=== PATIENT | male | born 1980 | race Caucasian/White ===

== ENCOUNTER 2017-11-01 13:26 | Emergency (ER) | payer OTHER ==
[~2017-11-01] VITALS: Ht 180.3 cm; Wt 102.6 kg
[~2017-11-01 13:26] MED LIST: CITA10TA8 PO; CLIN300C10 PO; LISI-461 PO
[2017-11-01 13:29] VITALS: TEMP 36.7; Ht 180.3 cm; Wt 102.6 kg
[2017-11-01] MEDS ORDERED: SODIUM CHLORIDE 0.9% 1000ML 1,000 ML IV STA (15:56)
[2017-11-01 16:21] LABS: BASO % 0.5 %; BASO ABS # 0.04 K/uL (0-0.2); EOS % 1.5 %; EOS ABS # 0.11 K/uL (0-0.5); HEMOGLOBIN 15.5 g/dL (14.0-18.0); IG# 0.01 K/uL (0.00-0.02); LYMPH % 37.8 %; LYMPH ABS # 2.83 K/uL (1.2-3.4); MEAN CELL VOLUME 93.4 fL (80-100); MEAN CORPUSCULAR HEMOGLOBIN 32.9 pg (25-34); MEAN CORPUSCULAR HGB CONC 35.2 g/dl (32-36); MEAN PLATELET VOLUME 9.5 fL (7.4-10.4); MONO % 7.2 %; MONO ABS # 0.54 K/uL (0.11-0.59); NEUT % 52.9 %; NEUT ABS # 3.96 K/uL (1.4-6.5); PLATELET COUNT 306 K/uL (130-400); RED CELL DISTRIBUTION WIDTH CV 12.5 % (11.5-14.5); RED CELL DISTRIBUTION WIDTH SD 42.4 fL (36.4-46.3); WHITE BLOOD COUNT 7.49 K/uL (4.8-10.8)
--- NOTE | 2017-11-01 16:33 | DIAGNOSTIC IMAGING REPORT ---
CHEST ONE VIEW PORTABLE HISTORY: 37 years-old Male sob acute shortness of breath with weakness COMPARISON: None available TECHNIQUE: Portable AP view of the chest FINDINGS: Cardiomediastinal and hilar silhouettes are within normal limits. There is no pneumothorax, pleural effusion, focal airspace consolidation or overt pulmonary edema. The bones of the chest appear grossly intact. IMPRESSION: No acute process. The above report was generated using voice recognition software. It may contain grammatical, syntax or spelling errors. Electronically signed by: Silviano Livingston M.D. 11/01/2017 4:31 PM Dictated Date/Time: 11/01/2017 4:31 PM
[2017-11-01 16:39] LABS: ALBUMIN 3.9 gm/dl (3.4-5.0); ALT/SGPT 29 U/L (12-78); AST/SGOT 11 U/L (15-37); BLOOD UREA NITROGEN 12 mg/dl (7-18); CALCIUM 8.7 mg/dl (8.5-10.1); CARBON DIOXIDE 29 mmol/L (21-32); CREATININE 1.09 mg/dl (0.60-1.40); GLUCOSE 65 mg/dl (70-99); LIPASE 115 U/L (73-393); POTASSIUM 3.7 mmol/L (3.5-5.1); SODIUM 142 mmol/L (136-145)
[2017-11-01 16:44] LABS: ALKALINE PHOSPHATASE 82 U/L (45-117); TOTAL PROTEIN 7.1 gm/dl (6.4-8.2)
--- NOTE | 2017-11-01 17:12 | DIAGNOSTIC IMAGING REPORT ---
(RENAL)RETROPERITON COMP CLINICAL HISTORY: 37 years-old Male presenting with hematuria . TECHNIQUE: Real-time grayscale and limited color Doppler ultrasound imaging of the kidneys and bladder was performed. COMPARISON: None. FINDINGS: Right kidney: Normal echogenicity of renal parenchyma. Right kidney measures 12.7 cm. Pelviectasis. No convincing evidence of calculus or mass. Left kidney: Normal echogenicity of renal parenchyma. Left kidney measures 12.2 cm. Pelviectasis. 7 mm hyperechogenic shadowing focus with twinkling artifact at the lower pole suggesting renal calculus. Bladder: Normal. Bilateral ureteral jets present. Other: None. IMPRESSION: 1. Left renal calculus suspected. 2. No convincing evidence of hydronephrosis. Suspected bilateral extrarenal pelvises. Electronically signed by: Miguel Angel Ndiaye M.D. 11/01/2017 5:10 PM Dictated Date/Time: 11/01/2017 5:09 PM
[2017-11-01 17:14] VITALS: BP 137/90; PULSE 78; O2SAT 98
[2017-11-01] MEDS ORDERED: DEXM1CAP PO (17:19)
[2017-11-01] MEDS ORDERED: DEXM10TA2 PO (17:19)
--- NOTE | 2017-11-01 18:24 | EMERGENCY ROOM VISIT NOTE ---
History Report prepared by Rekha: Ag Chacon Under the Supervision of: Dr. Alexander Hylton D.O. First contact with patient: 15:47 Chief Complaint: HEMATURIA Stated Complaint: BLOOD IN URINE,WEAKNESS,FATIGUE,JOINT PAIN Nursing Triage Summary: Seen at [facility] last week for hematuria, urine sample done and was called and told to f/u with urology because there was no infection. "Several months ago slipped on ice and landed on back, had hematuria for a couple days. Today I woke up and my legs looked like tree trunks, they look normal now but they feel heavy and weird. I have achiness all over. Denies tick bite. History of Present Illness The patient is a 37 year old male who presents to the Emergency Room with complaints of hematuria/dark black urine that he first observed 3 weeks ago. The patient states that his urine looked like "motor oil" and he could feel himself getting "lightheaded" when he would urinate. This started 3 weeks ago, but he notes that 2 months prior to that he slipped and feel on his porch steps and hit his lower back. After this episode he started to notice bright red blood in his urine. This bright red blood in his urine resolved, and the dark black urine started a couple of weeks later. Over the past two days the color of his urine has seemed to improve, and was a normal color today. The patient also notes that when he woke up this morning at, 0700, he felt a "heaviness" on his chest and he noticed that his calves were swollen which is been present since 7 AM. His legs felt like they had "sandbags" strapped to his feet. He continued to complain that he felt very tired today as well. The patient took himself to [facility] last week and his urinalysis showed large amounts of "blood and proteins." The patient denies change in vision, fevers, shortness of breath, nausea, vomiting, diarrhea, and melena. Source of History: patient Onset: 3 weeks ago Position: other (Genitourinary) Quality: other (hematuria/black urine) Timing: resolved (improving) Associated Symptoms: + headache (lightheadedness with urination), + chest pain ("heaviness"), + fatigue, + weakness, No SOB Review of Systems See HPI for pertinent positives & negatives. A total of 10 systems reviewed and were otherwise negative. Past Medical & Surgical Medical Problems: (1) Hypertension Family History Patient reports no known family medical history. Social History Smoking Status: Current Every Day Smoker Alcohol Use: occasionally Marital Status: Housing Status: lives with family Current/Historical Medications Scheduled Dexmethylphenidate HCl (Dexmethylphenidate HCl ER), 30 MG PO QAM Dexmethylphenidate Hcl (Dexmethylphenidate Hcl), 10 MG PO BID Allergies Coded Allergies: BEE STING (Unverified Allergy, Mild, 11/01/17) Uncoded Allergies: N (Allergy, Unknown, 08/28/02) NKA (Allergy, Unknown, 08/28/02) Physical Exam Vital Signs Date Time Temp Pulse Resp B/P (MAP) Pulse Ox O2 Delivery O2 Flow Rate FiO2 11/01/17 17:14 78 16 137/90 98 Room Air 11/01/17 15:47 84 18 140/90 97 Room Air 11/01/17 13:29 36.7 95 20 153/103 100 Room Air Physical Exam GENERAL: Sitting up in bed, alert, well appearing, well nourished, no distress, non-toxic EYE EXAM: normal conjunctiva. OROPHARYNX: no exudate, no erythema, lips, buccal mucosa, and tongue normal and mucous membranes are moist NECK: supple, no nuchal rigidity, no adenopathy, non-tender LUNGS: Clear to auscultation. Normal chest wall mechanics HEART: no murmurs, S1 normal and S2 normal ABDOMEN: abdomen soft, non-tender, normo-active bowel sounds, no masses, no rebound or guarding. BACK: Back is symmetrical on inspection and there is no deformity, no midline tenderness, no CVA tenderness. SKIN: no rashes and no bruising UPPER EXTREMITIES: upper extremities are grossly normal. LOWER EXTREMITIES: No pitting edema. Calves are equal bilaterally. NEURO EXAM: Normal sensorium, cranial nerves II-XII grossly intact, normal speech, no gross weakness of arms, no gross weakness of legs. Medical Decision & Procedures ER Provider Diagnostic Interpretation: Radiology results as stated below per my review and the radiologist's interpretation: CHEST ONE VIEW PORTABLE HISTORY: 37 years-old Male sob acute shortness of breath with weakness COMPARISON: None available TECHNIQUE: Portable AP view of the chest FINDINGS: Cardiomediastinal and hilar silhouettes are within normal limits. There is no pneumothorax, pleural effusion, focal airspace consolidation or overt pulmonary edema. The bones of the chest appear grossly intact. IMPRESSION: No acute process. The above report was generated using voice recognition software. It may contain grammatical, syntax or spelling errors. Electronically signed by: Silviano Livingston M.D. 11/01/2017 4:31 PM Dictated Date/Time: 11/01/2017 4:31 PM Laboratory Results 11/01/17 16:05 Red Blood Count 4.71, Mean Corpuscular Volume 93.4, Mean Corpuscular Hemoglobin 32.9, Mean Corpuscular Hemoglobin Concent 35.2, Mean Platelet Volume 9.5, Neutrophils (%) (Auto) 52.9, Lymphocytes (%) (Auto) 37.8, Monocytes (%) (Auto) 7.2, Eosinophils (%) (Auto) 1.5, Basophils (%) (Auto) 0.5, Neutrophils # (Auto) 3.96, Lymphocytes # (Auto) 2.83, Monocytes # (Auto) 0.54, Eosinophils # (Auto) 0.11, Basophils # (Auto) 0.04 11/01/17 16:05 Test 11/01/17 16:05 11/01/17 16:23 White Blood Count 7.49 K/uL (4.8-10.8) Red Blood Count 4.71 M/uL (4.7-6.1) Hemoglobin 15.5 g/dL (14.0-18.0) Hematocrit 44.0 % (42-52) Mean Corpuscular Volume 93.4 fL (80-100) Mean Corpuscular Hemoglobin 32.9 pg (25-34) Mean Corpuscular Hemoglobin Concent 35.2 g/dl (32-36) Platelet Count 306 K/uL (130-400) Mean Platelet Volume 9.5 fL (7.4-10.4) Neutrophils (%) (Auto) 52.9 % Lymphocytes (%) (Auto) 37.8 % Monocytes (%) (Auto) 7.2 % Eosinophils (%) (Auto) 1.5 % Basophils (%) (Auto) 0.5 % Neutrophils # (Auto) 3.96 K/uL (1.4-6.5) Lymphocytes # (Auto) 2.83 K/uL (1.2-3.4) Monocytes # (Auto) 0.54 K/uL (0.11-0.59) Eosinophils # (Auto) 0.11 K/uL (0-0.5) Basophils # (Auto) 0.04 K/uL (0-0.2) RDW Standard Deviation 42.4 fL (36.4-46.3) RDW Coefficient of Variation 12.5 % (11.5-14.5) Immature Granulocyte % (Auto) 0.1 % Immature Granulocyte # (Auto) 0.01 K/uL (0.00-0.02) Anion Gap 5.0 mmol/L (3-11) Est Creatinine Clear Calc Drug Dose 114.2 ml/min Estimated GFR () 100.7 Estimated GFR (Non- 86.9 BUN/Creatinine Ratio 10.6 (10-20) Calcium Level 8.7 mg/dl (8.5-10.1) Total Bilirubin 0.9 mg/dl (0.2-1) Direct Bilirubin 0.2 mg/dl (0-0.2) Aspartate Amino Transf (AST/SGOT) 11 U/L (15-37) Alanine Aminotransferase (ALT/SGPT) 29 U/L (12-78) Alkaline Phosphatase 82 U/L (45-117) Troponin I < 0.015 ng/ml (0-0.045) Total Protein 7.1 gm/dl (6.4-8.2) Albumin 3.9 gm/dl (3.4-5.0) Lipase 115 U/L (73-393) Urine Color YELLOW Urine Appearance CLEAR (CLEAR) Urine pH 7.0 (4.5-7.5) Urine Specific [place] 1.019 (1.000-1.030) Urine Protein NEG (NEG) Urine Glucose (UA) NEG (NEG) Urine Ketones NEG (NEG) Urine Occult Blood 2+ (NEG) Urine Nitrite NEG (NEG) Urine Bilirubin NEG (NEG) Urine Urobilinogen NEG (NEG) Urine Leukocyte Esterase NEG (NEG) Urine WBC (Auto) 1-5 /hpf (0-5) Urine RBC (Auto) 5-10 /hpf (0-4) Urine Hyaline Casts (Auto) 0 /lpf (0-5) Urine Epithelial Cells (Auto) 0-5 /lpf (0-5) Urine Bacteria (Auto) NEG (NEG) Laboratory results per my review. Medications Administered Medications (Trade) Dose Ordered Sig/Marilee Route Start Time Stop Time Status Last Admin Dose Admin Sodium Chloride 1,000 ml @ 999 mls/hr Q1H1M STAT IV 11/01/17 15:56 11/01/17 16:56 DC 11/01/17 16:06 999 MLS/HR ECG Per My Interpretation Indication: chest pain (heaviness) Rate (beats per minute): 79 Rhythm: normal sinus Findings: other (Normal [place], No PVCs) ED Course ED COURSE: Vital signs were reviewed and showed hypertensive situationally. The patients medical record was reviewed The above diagnostic studies were performed and reviewed. ED treatments and interventions as stated above. 1551: The patient was evaluated in room A4B. A complete history and physical examination was performed. 1556: Ordered Sodium Chloride 1000 mL @ 999 mL/hr IV. 1726: Upon reevaluation, the patient is resting comfortably.I discussed my findings with the patient and he understands and agrees with the treatment plan. Based on the patients age, coexisting illnesses, exam and lab findings the decision to treat as an outpatient was made. The patient remained stable while under my care. The patient appeared well at the time of discharge. Medical Decision Differential Diagnosis includes but is not limited to dehydration, stroke, anemia, hypoglycemia, hyponatremia, hypernatremia, urinary tract infection, pneumonia, bronchitis, sepsis, gastroenteritis, additional abdominal pathology, metabolic abnormalities and infections. Patient is a 37-year-old male who presents the ER for 3 weeks of intermittent dark urine. He also notes some questionable hematuria. He was recently treated for UTI but was called with a negative culture. He has not followed up with urology yet. He did have some mild chest heaviness which started this morning at 7 AM. Troponin was negative and EKG was unremarkable. CBC along with BMP, LFTs, bilirubin and troponin and lipase is negative. UA without proteinuria or infection. Did have +2 blood. Chest x-ray and ultrasound of the kidneys was unremarkable. Patient was updated at bedside. I did stress the importance of following up with urology within the next week. He was given info for Dr. Leal. Discussed with Pt concerning signs and symptoms to watch out for. Pt was instructed to follow up with their PCP and discussed with the patient their option to return to the ED at anytime for persistent or worsening symptoms. The appropriate anticipatory guidance and out-patient management, including indications for return to the emergency department, were explained at length to the patient and understood. Medication Reconcilliation Current Medication List: was personally reviewed by me Blood Pressure Screening Patient's blood pressure: Elevated blood pressure Blood pressure disposition: Elevated BP felt to be situational Impression Primary Impression: Hematuria Scribe Attestation The scribe's documentation has been prepared under my direction and personally reviewed by me in its entirety. I confirm that the note above accurately reflects all work, treatment, procedures, and medical decision making performed by me. Departure Information Dispostion Home / Self-Care Referrals Kateryna Irby M.D. (MEDICAL) (PCP) Forms HOME CARE DOCUMENTATION FORM, IMPORTANT VISIT INFORMATION, WORK / SCHOOL INSTRUCTIONS Patient Instructions My [facility] Additional Instructions Please follow up with your primary care doctor with in the next 24 hours. Any worsening of your symptoms, please return to the ED immediately. This includes any fevers greater than 100.4, worsening pain, chest pain, shortness breath, persistent nausea, vomiting, unable to eat or drink, or any other concerning signs or symptoms from your standpoint. Please follow-up with urology as listed below. Problem Qualifiers Primary Impression: Hematuria Hematuria type: unspecified type Qualified Codes: R31.9 - Hematuria, unspecified
== END 2017-11-01 17:39 | disposition home or self-care (01) ==
LOC: C.EDB 13:28 → C.EDA 17:39
DX: R31.9 Hematuria, unspecified (principal); R42 Dizziness and giddiness; R07.89 Other chest pain; R53.83 Other fatigue; R60.0 Localized edema; I10 Essential (primary) hypertension; F17.200 Nicotine dependence, unspecified, uncomplicated; Z79.899 Other long term (current) drug therapy; Z91.030 Bee allergy status

== ENCOUNTER → 2017-11-09 | Outpatient (CLI) | payer OTHER ==
[~2017-11-09] MED LIST changes: -CITA10TA8 PO; -CLIN300C10 PO; +DEXM10TA2 PO; +DEXM1CAP PO; -LISI-461 PO
== END | disposition home or self-care (01) ==
LOC: C.PATHSPEC 14:53
PROVIDERS: ATTEND Urology
DX: N20.0 Calculus of kidney (principal)

== ENCOUNTER 2018-07-09 18:55 | Inpatient (IN) ==
[2018-07-09] MEDS ORDERED: ONDANSETRON INJ 2 MG/ML 2 ML VIAL IV STA (19:31)
[2018-07-09] MEDS ORDERED: SODIUM CHLORIDE 0.9% 1000ML 1,000 ML IV SCH (19:45)
[2018-07-09 19:48] LABS: Basophils # (auto) 0.02 K/uL (0-0.2); Basophils % (auto) 0.2 %; Eosinophils # (auto) 0.13 K/uL (0-0.5); Eosinophils % (auto) 1.5 %; Hematocrit (blood only) 40.6 % (42-52); Hemoglobin 14.8 g/dL (14.0-18.0); Immature Granulocytes # (auto) 0.02 K/uL (0.00-0.02); Immature Granulocytes % (auto) 0.2 %; Lymphocytes # (auto) 2.37 K/uL (1.2-3.4); Lymphocytes % (auto) 27.8 %; Mean Corpuscular Hgb Conc 36.5 g/dL (32-36); Mean Corpuscular Volume 91.6 fL (80-100); Mean Platelet Volume 9.3 fL (7.4-10.4); Monocytes # (auto) 0.73 K/uL (0.11-0.59); Monocytes % (auto) 8.6 %; Neutrophils # (auto) 5.24 K/uL (1.4-6.5); Neutrophils % (auto) 61.7 %; Platelet Count 332 K/uL (130-400); RDW Standard Deviation 40.7 fL (36.4-46.3); Red Blood Count 4.43 M/uL (4.7-6.1); White Blood Count 8.51 K/uL (4.8-10.8)
[2018-07-09 20:00] LABS: Albumin Level 3.7 gm/dl (3.4-5.0); BUN Creatinine Ratio 12.2 (10-20); Calcium 9.4 mg/dl (8.5-10.1); Creatinine Clr Calc Pharmacy 80.5 ml/min; Est GFR (African American) 64.8; Est GFR (Non-African American) 55.9; Potassium 3.3 mmol/L (3.5-5.1)
[2018-07-09 20:03] LABS: Albumin Globulin Ratio 0.8 (0.9-2); Globulin 4.4 gm/dl (2.5-4.0); Total Protein 8.1 gm/dl (6.4-8.2)
--- NOTE | 2018-07-09 20:05 | XRay Report ---
KUB HISTORY: Acute right-sided flank paina right flank pain COMPARISON: KUB 07/04/2018 FINDINGS: The bowel gas pattern is non-obstructive. There is no organomegaly. Bilateral nephrolithia sis redemonstrated. The previously noted 7 mm calculus about the mid right ureter is not definitively seen on today's study. Pelvic basin calcifications suggest phleboliths. No pneumoperitoneum or pneum atosis. No fracture. IMPRESSION: Bilateral nephrolithiasis without ureteral calculi identified. The previously noted right ureteral ca lculus is not seen on today's study. Electronically signed by: Silviano Livingston M.D. 07/09/2018 8:04 PM
--- NOTE | 2018-07-09 20:07 | Emergency Department Note ---
Entered by Yecenia Hoff acting as a scribe for History of Present Illness General Chief complaint: Kidney Stone Stated complaint: KIDNEY STONES Source: patient Mode of arrival: ambulatory Limitations: no limitations History of Present Illness Provider complaint: kidney stone pain Onset (ago): day(s) 5 Location: abdomen Pain Consistency: + other (worsening) Maximum Pain Intensity: 10 Current Pain Intensity: 10 Quality: + other (kidney stones) Relieved By: not by medication Associated symptoms: + nausea/vomiting Treatments prior to arrival: other (Oxycodone) The patient is a 37 year old male who presents to the Emergency Room with complaints of a worsening kidney stone pain that began 5 days ago. The patient reports that he was evaluated at this hospital last Sunday for back pain and being unable to urinate. He states that he was diagnosed with kidney stones and advised to be hospitalized, but he insisted on being discharged home due to the upcoming holidays. He notes that he was discharged with zofran and oxycodone and instructed to return if the pain worsened. The patient reports that the medication did not alleviate his symptoms and notes that he last took some about 5-6 hours ago. He states that he has been nauseous, vomiting and experiencing cold sweats. He reports that he did pass stones yesterday but notes he has been unable to today. The patient states he has a history of wisdom teeth extraction and a tendon repair in his right arm. Home Medications Home Medications Medication Instructions Recorded Confirmed Type ondansetron 4 mg PO Q6H PRN #12 tab 07/04/18 07/09/18 Rx tamsulosin 0.4 mg PO HS 07/06/18 07/09/18 History acetaminophen [Mapap 650 mg PO Q4H PRN #30 tab 07/11/18 Rx (acetaminophen)] ciprofloxacin HCl 500 mg PO BID #6 tab 07/11/18 Rx docusate sodium 100 mg PO BID #20 cap 07/11/18 Rx nicotine [Nicoderm CQ] 21 mg TRANSDERMAL QAM #14 ea 07/11/18 Rx polyethylene glycol 3350 [Miralax] 17 g PO TID #10 ea 07/11/18 Rx Allergies Allergy/AdvReac Type Severity Reaction Status Date / Time bee venom protein (honey bee) Allergy Mild Unknown Unverified 07/05/18 12:06 No Known Drug Allergies Allergy Verified 07/05/18 12:35 shrimp AdvReac Severe Swelling Unverified 07/05/18 12:06 of Lip/Tongue/Throat Past Med/Surg History Medical History Ureterolithiasis Renal colic on right side Hematuria (Resolved) ADHD Kidney stone Surgical History S/P tendon repair Hx of wisdom tooth extraction Social History Current Living Situation: Family and Significant Other Other Information That Helps Us Care for You: No Feels Safe at Home: Yes Safety Concerns: Feels Safe At This Time Smoking Status: Current every day smoker Tobacco Type: cigarettes Do You Dip or Chew Tobacco: Yes Second Hand Exposure: No Tobacco Cessation Education Requested by Patient: No Hx Alcohol Use: No Hx Substance Use: Yes substance use type: marijuana Last Used Substance: Days ( ago) Last Used Substance Other:: 1 Beliefs That Will Affect Care: None Preferred Language: Stateless Review of Systems See HPI for pertinent positives & negatives. and A total of 10 systems reviewed and were otherwise negative Physical Exam Vital Signs Vital Signs - 24 hr 07/10/18 15:30 07/10/18 23:50 07/11/18 07:15 Temperature 36.3 C L 36.6 C 36.6 C Temperature Source Oral Oral Oral Pulse Rate [Right Finger] 74 70 73 Pulse Rhythm [Right Finger] Pulse Strength [Right Finger] Respiratory Rate 17 16 16 Respiratory Effort / Characteristics Respiratory Depth Respiratory Pattern Blood Pressure [Left Arm] 147/95 H 117/72 Blood Pressure [Right Arm] 142/91 H Blood Pressure Mean [Left Arm] 112 87 Blood Pressure Mean [Right Arm] 108 Blood Pressure Position [Left Arm] Lying Lying Blood Pressure Position [Right Arm] Lying Pulse Oximetry 94 96 96 Oxygen Delivery Method Room Air Room Air Room Air 07/11/18 09:58 07/11/18 13:37 Temperature 36.8 C 36.8 C Temperature Source Oral Pulse Rate [Right Finger] 76 76 Pulse Rhythm [Right Finger] Regular Pulse Strength [Right Finger] Normal Respiratory Rate 20 20 Respiratory Effort / Characteristics Non-Labored Spontaneous Normal for Patient Respiratory Depth Normal Respiratory Pattern Regular Blood Pressure [Left Arm] 117/72 Blood Pressure [Right Arm] 132/95 132/95 Blood Pressure Mean [Left Arm] Blood Pressure Mean [Right Arm] 107 Blood Pressure Position [Left Arm] Semi-fowlers Blood Pressure Position [Right Arm] Pulse Oximetry 98 98 Oxygen Delivery Method Room Air GENERAL: Patient is awake and alert. He is very anxious appearing and appears to be in significant pain. EYES: The conjunctivae are clear. The pupils are round and reactive. EARS, NOSE, MOUTH AND THROAT: The nose is without any evidence of any deformity. Mucous membranes are moist tongue is midline NECK: The neck is nontender and supple. RESPIRATORY: Normal respiratory effort is noted there is no evidence of wheezing rhonchi or rales CARDIOVASCULAR: Regular rate and rhythm noted there no murmurs rubs or gallops normal S1 normal S2 GASTROINTESTINAL: The abdomen is moderately distended and diffusely tender. There is right-sided tenderness to palpation but no guarding or rigidity. BACK: There is bilateral CVA tenderness to percussion right greater than left. No midline tenderness was noted. MUSCULOSKELETAL/EXTREMITIES: There is no evidence of gross deformity full range of motion is noted in the hips and shoulders SKIN: There is no obvious evidence of any rash. There are no petechiae, pallor or cyanosis noted. NEUROLOGIC: Patient is awake alert and oriented x3 strength is symmetric patellar reflexes are 2+ bilaterally Course 193: Past medical records reviewed. The patient was evaluated in room B2, and a complete history and physical examination were performed. 2306: I reviewed the patient's case with Dr. Jane - [facility] Hospitalist. He will evaluate the patient for further management. Administered Medications Discontinued Medications Docusate Sodium (Colace) 100 mg PO BID PARMINDER Stop: 08/09/18 08:59 Last Admin: 07/10/18 08:16 Dose: Not Given Hydromorphone HCl (Dilaudid) 1 mg IV Q15M PRN PRN Reason: Pain Stop: 07/23/18 22:04 Last Admin: 07/10/18 00:03 Dose: 1 mg Admin: 07/09/18 22:09 Dose: 1 mg Hydromorphone HCl (Dilaudid) 0.5 mg IV Q3H PRN PRN Reason: Pain Stop: 07/24/18 00:54 Last Admin: 07/10/18 01:44 Dose: 0.5 mg Hydromorphone HCl (Dilaudid) Confirm Administered Dose 0.5 mg .ROUTE .STK-MED ONE Stop: 07/10/18 01:06 Last Admin: 07/10/18 01:07 Dose: 0.5 mg Hydromorphone HCl (Dilaudid) 1 mg IV Q3H PRN PRN Reason: Pain Stop: 07/24/18 00:54 Last Admin: 07/10/18 10:20 Dose: 1 mg Admin: 07/10/18 05:54 Dose: 1 mg Hydromorphone HCl (Dilaudid) 1 mg IV NOW STA Stop: 07/10/18 02:42 Last Admin: 07/10/18 02:49 Dose: 1 mg Hydromorphone HCl (Dilaudid) 1 mg IV Q2H PRN PRN Reason: Pain Stop: 07/24/18 01:26 Last Admin: 07/10/18 21:34 Dose: 1 mg Admin: 07/10/18 12:18 Dose: 1 mg Sodium Chloride (Nss 1000ml) 1,000 mls @ 999 mls/hr IV .Q1H1M [facility] Stop: 07/09/18 20:45 Last Infusion: 07/09/18 21:29 Dose: 0 mls/hr Admin: 07/09/18 20:28 Dose: 999 mls/hr Lactated Ringer's (Lr) 1,000 mls @ 150 mls/hr IV .Q6H40M [facility] Stop: 08/09/18 00:54 Last Admin: 07/11/18 10:23 Dose: 150 mls/hr Admin: 07/11/18 09:49 Dose: Not Given Infusion: 07/11/18 09:48 Dose: 0 mls/hr Infusion: 07/11/18 06:47 Dose: 150 mls/hr Admin: 07/11/18 03:05 Dose: 150 mls/hr Infusion: 07/11/18 00:50 Dose: 150 mls/hr Admin: 07/10/18 18:09 Dose: 150 mls/hr Infusion: 07/10/18 17:58 Dose: 0 mls/hr Infusion: 07/10/18 15:24 Dose: 150 mls/hr Infusion: 07/10/18 12:30 Dose: 150 mls/hr Admin: 07/10/18 09:29 Dose: 140 mls/hr Infusion: 07/10/18 08:57 Dose: 140 mls/hr Infusion: 07/10/18 07:24 Dose: 140 mls/hr Admin: 07/10/18 01:48 Dose: 140 mls/hr Ciprofloxacin Lactate (Cipro / D5w) 200 mg in 100 mls @ 100 mls/hr IV Q12H [facility] Stop: 07/15/18 01:59 Last Infusion: 07/10/18 03:38 Dose: 0 mls/hr Admin: 07/10/18 02:18 Dose: 100 mls/hr Acetaminophen (Ofirmev) 1,000 mg in 100 mls @ 400 mls/hr IV Q8H [facility] Stop: 08/09/18 07:29 Last Infusion: 07/11/18 07:29 Dose: 0 mls/hr Admin: 07/11/18 07:09 Dose: 400 mls/hr Infusion: 07/10/18 22:54 Dose: 0 mls/hr Infusion: 07/10/18 22:40 Dose: 400 mls/hr Infusion: 07/10/18 22:35 Dose: 0 mls/hr Admin: 07/10/18 22:34 Dose: 400 mls/hr Infusion: 07/10/18 16:11 Dose: 0 mls/hr Admin: 07/10/18 15:25 Dose: 400 mls/hr Infusion: 07/10/18 08:14 Dose: 0 mls/hr Admin: 07/10/18 07:44 Dose: 400 mls/hr Ciprofloxacin (Cipro) 400 mg in 200 mls @ 100 mls/hr IV Q12H [facility] Stop: 07/20/18 19:59 Last Infusion: 07/11/18 11:54 Dose: 0 mls/hr Admin: 07/11/18 08:32 Dose: 100 mls/hr Infusion: 07/10/18 21:23 Dose: 0 mls/hr Admin: 07/10/18 19:08 Dose: 100 mls/hr Ciprofloxacin Lactate (Cipro / D5w) 200 mg in 100 mls @ 100 mls/hr IV 1115 ONE Stop: 07/10/18 12:14 Last Infusion: 07/10/18 12:22 Dose: 0 mls/hr Admin: 07/10/18 11:20 Dose: 100 mls/hr Influenza Virus Vaccine Quadrival (Flucelvax Quad Vaccine) 0.5 ml IM .ONCE ONE Stop: 07/10/18 08:01 Last Admin: 07/10/18 13:48 Dose: 0.5 ml Ketorolac Tromethamine (Toradol) 15 mg IV Q6H PRN PRN Reason: Pain Stop: 07/15/18 11:01 Last Admin: 07/10/18 14:51 Dose: 15 mg Lorazepam (Ativan) 0.5 mg PO Q8 PRN PRN Reason: Anxiety Stop: 08/09/18 10:40 Last Admin: 07/10/18 11:21 Dose: 0.5 mg Miscellaneous (Remove Nicoderm Patch) 1 ea N/A HS [facility]ER Stop: 08/09/18 20:59 Last Admin: 07/10/18 21:18 Dose: 1 ea Morphine Sulfate (Morphine Sulfate) 4 mg IV Q15M PRN PRN Reason: Pain Stop: 07/23/18 19:30 Last Admin: 07/09/18 20:57 Dose: 4 mg Admin: 07/09/18 20:29 Dose: 4 mg Nicotine (Nicoderm Cq) 21 mg TD QAM [facility] Stop: 08/09/18 01:29 Last Admin: 07/11/18 08:38 Dose: 21 mg Admin: 07/10/18 10:35 Dose: 21 mg Admin: 07/10/18 02:17 Dose: Not Given Ondansetron HCl (Zofran) 4 mg IV NOW STA Stop: 07/09/18 19:32 Last Admin: 07/09/18 20:29 Dose: 4 mg Ondansetron HCl (Zofran) 4 mg IV Q6H PRN PRN Reason: Nausea Stop: 08/09/18 00:54 Last Admin: 07/10/18 21:32 Dose: 4 mg Polyethylene Glycol (Miralax Powder Packet) 17 gm PO TID [facility]MINDER Stop: 08/09/18 10:59 Last Admin: 07/11/18 08:46 Dose: 17 gm Admin: 07/10/18 21:19 Dose: 17 gm Admin: 07/10/18 13:49 Dose: Not Given Admin: 07/10/18 12:19 Dose: 17 gm Potassium Chloride (Klor-Con M20) 40 meq PO NOW STA Stop: 07/10/18 00:56 Last Admin: 07/10/18 02:17 Dose: 40 meq Senna/Docusate Sodium (Senokot S) 1 tab PO BID PARMINDER Stop: 08/09/18 10:44 Last Admin: 07/11/18 08:46 Dose: 1 tab Admin: 07/10/18 21:17 Dose: 1 tab Admin: 07/10/18 12:18 Dose: 1 tab Tamsulosin HCl (Flomax) 0.4 mg PO HS PARMINDER Stop: 08/09/18 20:59 Last Admin: 07/10/18 21:17 Dose: 0.4 mg Tamsulosin HCl (Flomax) 0.4 mg PO NOW ONE Stop: 07/10/18 11:39 Last Admin: 07/10/18 12:19 Dose: 0.4 mg Medical Decision Making Differential Diagnosis Differential Diagnosis includes: shingles, pyelonephritis/UTI, renal colic, appendicitis, diverticulitis, mesenteric ischemia, torsion, kidney stones, aortic pathology, infections, inflammatory bowel disease, bowel obstruction, PUD , biliary pathology, as well as others were entertained. Medical Records Attestation: I reviewed the patient's medical records. Home Medications Current Medication List: was personally reviewed by me Laboratory Data Attestation: I reviewed the patient's lab results. Result diagrams: 07/10/18 06:01 07/11/18 06:12 Lab Results 07/09/18 07/09/18 07/09/18 Range/Units 19:15 19:15 21:00 WBC 8.51 (4.8-10.8) K/uL RBC 4.43 L (4.7-6.1) M/uL Hgb 14.8 (14.0-18.0) g/dL Hct 40.6 L (42-52) % MCV 91.6 (80-100) fL MCH 33.4 (25-34) pg MCHC 36.5 H (32-36) g/dL RDW Std Deviation 40.7 (36.4-46.3) fL RDW Coeff of Magan 12.0 (11.5-14.5) % Plt Count 332 (130-400) K/uL MPV 9.3 (7.4-10.4) fL Immature Gran % (Auto) 0.2 % Neut % (Auto) 61.7 % Lymph % (Auto) 27.8 % Lane % (Auto) 8.6 % Eos % (Auto) 1.5 % Baso % (Auto) 0.2 % Immature Gran # (Auto) 0.02 (0.00-0.02) K/uL Neut # (Auto) 5.24 (1.4-6.5) K/uL Lymph # (Auto) 2.37 (1.2-3.4) K/uL Lane # (Auto) 0.73 H (0.11-0.59) K/uL Eos # (Auto) 0.13 (0-0.5) K/uL Baso # (Auto) 0.02 (0-0.2) K/uL Sodium 136 (136-145) mmol/L Potassium 3.3 L (3.5-5.1) mmol/L Chloride 99 (98-107) mmol/L Carbon Dioxide 27 (21-32) mmol/L Anion Gap 10.0 (3-11) BUN 19 H (7-18) mg/dl Creatinine 1.57 H (0.6-1.4) mg/dl Est Cr Clr Drug Dosing 80.5 ml/min Est GFR ( Amer) 64.8 Est GFR (Non-Af Amer) 55.9 BUN/Creatinine Ratio 12.2 (10-20) Glucose 92 (70-99) mg/dl Calcium 9.4 (8.5-10.1) mg/dl Total Bilirubin 1.0 (0.1-1) mg/dl AST 15 (15-37) U/L ALT 39 (12-78) U/L Alkaline Phosphatase 78 (45-117) U/L Total Protein 8.1 (6.4-8.2) gm/dl Albumin 3.7 (3.4-5.0) gm/dl Globulin 4.4 H (2.5-4.0) gm/dl Albumin/Globulin Ratio 0.8 L (0.9-2) Lipase 77 (73-393) U/L Urine Color Yellow Urine Appearance Clear (Clear) Urine pH 6.0 (4.5-7.5) Ur Specific [place] 1.019 (1.000-1.030) Urine Protein Negative (Negative) Urine Glucose (UA) Negative (Negative) Urine Ketones Negative (Negative) Urine Blood 3+ H (Negative) Urine Nitrite Negative (Negative) Urine Bilirubin Negative (Negative) Urine Urobilinogen Positive H (Negative) Ur Leukocyte Esterase 1+ H (Negative) Urine WBC (Auto) 5-10 H (0-5) /hpf Urine RBC (Auto) >30 H (0-4) /hpf U Hyaline Cast (Auto) 0 (0-5) /lpf U Epithel Cells (Auto) 5-10 H (0-5) /lpf Urine Bacteria (Auto) Negative (Negative) 07/10/18 07/10/18 07/11/18 Range/Units 06:01 06:01 06:12 WBC 9.52 (4.8-10.8) K/uL RBC 4.19 L (4.7-6.1) M/uL Hgb 13.5 L (14.0-18.0) g/dL Hct 38.3 L (42-52) % MCV 91.4 (80-100) fL MCH 32.2 (25-34) pg MCHC 35.2 (32-36) g/dL RDW Std Deviation 40.3 (36.4-46.3) fL RDW Coeff of Magan 12.1 (11.5-14.5) % Plt Count 273 (130-400) K/uL MPV 9.1 (7.4-10.4) fL Immature Gran % (Auto) 0.1 % Neut % (Auto) 56.3 % Lymph % (Auto) 31.7 % Lane % (Auto) 9.7 % Eos % (Auto) 2.0 % Baso % (Auto) 0.2 % Immature Gran # (Auto) 0.01 (0.00-0.02) K/uL Neut # (Auto) 5.36 (1.4-6.5) K/uL Lymph # (Auto) 3.02 (1.2-3.4) K/uL Lane # (Auto) 0.92 H (0.11-0.59) K/uL Eos # (Auto) 0.19 (0-0.5) K/uL Baso # (Auto) 0.02 (0-0.2) K/uL Sodium 138 137 (136-145) mmol/L Potassium 4.1 D 4.3 (3.5-5.1) mmol/L Chloride 106 103 (98-107) mmol/L Carbon Dioxide 26 28 (21-32) mmol/L Anion Gap 6.0 7.0 (3-11) BUN 17 15 (7-18) mg/dl Creatinine 1.34 1.28 (0.6-1.4) mg/dl Est Cr Clr Drug Dosing 93.5 97.9 ml/min Est GFR ( Amer) 78.4 82.9 Est GFR (Non-Af Amer) 67.7 71.5 BUN/Creatinine Ratio 12.6 12.0 (10-20) Glucose 88 83 (70-99) mg/dl Calcium 8.8 9.2 (8.5-10.1) mg/dl Total Bilirubin (0.1-1) mg/dl AST (15-37) U/L ALT (12-78) U/L Alkaline Phosphatase (45-117) U/L Total Protein (6.4-8.2) gm/dl Albumin (3.4-5.0) gm/dl Globulin (2.5-4.0) gm/dl Albumin/Globulin Ratio (0.9-2) Lipase (73-393) U/L Urine Color Urine Appearance (Clear) Urine pH (4.5-7.5) Ur Specific [place] (1.000-1.030) Urine Protein (Negative) Urine Glucose (UA) (Negative) Urine Ketones (Negative) Urine Blood (Negative) Urine Nitrite (Negative) Urine Bilirubin (Negative) Urine Urobilinogen (Negative) Ur Leukocyte Esterase (Negative) Urine WBC (Auto) (0-5) /hpf Urine RBC (Auto) (0-4) /hpf U Hyaline Cast (Auto) (0-5) /lpf U Epithel Cells (Auto) (0-5) /lpf Urine Bacteria (Auto) (Negative) Imaging Data Radiologist's Impression: Radiology results as stated below per my review and the radiologist's interpretation: KUB HISTORY: Acute right-sided flank paina right flank pain COMPARISON: KUB 07/04/2018 FINDINGS: The bowel gas pattern is non-obstructive. There is no organomegaly. Bilateral nephrolithiasis redemonstrated. The previously noted 7 mm calculus about the mid right ureter is not definitively seen on today's study. Pelvic basin calcifications suggest phleboliths. No pneumoperitoneum or pneumatosis. No fracture. IMPRESSION: Bilateral nephrolithiasis without ureteral calculi identified. The previously noted right ureteral calculus is not seen on today's study. Electronically signed by: Silviano Livingston M.D. 07/09/2018 8:04 PM Blood Pressure Blood Pressure Findings: Elevated blood pressure MDM Narrative The patient is a 37-year-old male who presented to the emergency department for an evaluation of flank pain. The patient was recently diagnosed with a rather large impacted kidney stone. The patient had lithotripsy for the large stone and states that he has been passing gravel since that time. He started having worsening flank pain over the last 24 hours. He was seen initially and was recommended inpatient management but the patient did not wish to stay in the hospital. The patient was treated with IV fluids and IV pain medication however his pain continued and worsened. For this reason I discussed his case with the on-call [facility] hospitalist group. They have agreed to evaluate the patient in the emergency department for further management and disposition. The patient was treated with IV fluids IV pain medicine and IV antiemetics. Impression & Plan Renal colic, Intractable pain Discharge Plan Visit Data *Final* Discharge Date/Time: 07/10/18 00:40 Chief Complaint: Kidney Stone Stated Complaint: KIDNEY STONES ED Provider: Mickey Burdick Discharge Problem: Renal colic, Intractable pain Patient Disposition: Admitted As Inpatient Condition: Good Discharge Instructions Interventions: ED Discharge Assessment Last Done: 07/10/18 00:40 The scribe's documentation has been prepared under my direction and personally reviewed by me in its entirety. I confirm that the note above accurately reflects all work, treatment, procedures, and medical decision making performed by me.
[2018-07-09] MEDS: MoRPHine SULFATE 4 MG/ML 1 ML CARP\\VIAL IV PRN ×2 (20:29→20:57)
[2018-07-09 21:34] LABS: Appearance Urine Clear (Clear); Bacteria Urine Automated Negative (Negative); Bilirubin Urine Negative (Negative); Cast Urine Automated 0 /lpf (0-5); Color Urine Yellow; Glucose Urine UA Negative (Negative); Ketones Urine Negative (Negative); Leukocyte Esterase Urine 1+ (Negative); Nitrite Urine Negative (Negative); Protein Urine Negative (Negative); Specific Gravity Urine 1.019 (1.000-1.030); Urobilinogen Urine Positive (Negative)
--- NOTE | 2018-07-09 21:41 | Ultrasound Report ---
US renal/blad retro comp HISTORY: 37 years-old Male right flank pain, recent lithotripsy acute right-sided flank pain with hi story of recent lithotripsy COMPARISON: KUB 07/09/2018, renal ultrasound 07/07/2018 TECHNIQUE: Multiple real-time sonographic images of the kidneys and urinary bladder were obtained ass essing grayscale appearance and color flow FINDINGS: Right kidney measures 13.3 cm in length. 8 mm nonobstructing calculus of the inferior pole right kidn ey. Resolution of the previously described hydroureteronephrosis. Left kidney measures 12.4 cm in length. Mild left-sided pelviectasis without marilyn hydronephrosis. 1. 1 cm calculus is again noted within the left renal pelvis. Bilateral ureteral jets are noted. There are several calculi noted within the region of the right ure terovesicular junction measuring up to 7 mm. IMPRESSION: 1. Resolution of the previously described right-sided obstructive uropathy. 2. Bilateral nephrolithiasis redemonstrated. 3. Several calculi noted about the right ureterovesicular junction measuring up to 7 mm. The above report was generated using voice recognition software. It may contain grammatical, syntax o r spelling errors. Electronically signed by: Silviano Livingston M.D. 07/09/2018 9:39 PM
[2018-07-09] MEDS: HYDROmorphone INJ 1 MG/ML SYRINGE IV PRN (22:09)
--- NOTE | 2018-07-09 23:03 | History & Physical Report ---
Date of Service July 09, 2018 Assessment & Plan (1) Renal colic: L normal saline bolus in the emergency departmentMr. De La Garza is a 37-year- old male with a history of ADHD, kidney stones who presents to the emergency department due to recurrent right flank pain. -Admit to med/surg -Renal ultrasound shows bilateral nephrolithiasis, with several calculi in the right ureterovesicular junction measuring up to 7 mm -Urology consulted for management -N.p.o. at midnight for possible intervention -0.5 mg Dilaudid every 3 hours for pain -Zofran ordered as needed for nausea -Patient received 1 L bolus of normal saline in the emergency department -Continue hydration with LR at 140 mls per hour -Continue Flomax -Ciprofloxacin 200 mg IV twice daily started as prophylaxis (2) Acute kidney injury: -Patient has an elevated creatinine at 1.57 - actually improved from prior ED visit on 07/06, when his creatinine was 1.81 -Likely secondary to nephrolithiasis -Monitor daily BMP, avoid nephrotoxic medications (3) Failure of outpatient treatment: -Management as above (4) Intractable pain: -Dilaudid as above (5) ADHD: -Patient not currently on any medications for this -Recommend establishing care with a PCP on discharge (6) Constipation: -Patient reports no bowel movement in the past 5 days, likely secondary to pain medication -Bowel regimen with MiraLAX and Colace (7) DVT (deep venous thrombosis): -SCD knees, and ambulation CODE STATUS: Full Disposition: Admit to Med/Surg F/E/N: N.p.o. at midnight for possible intervention. LR at 140 mls per hour. Potassium low at 3.3. Will supplement and recheck tomorrow. History of Present Illness Primary Care Provider: NO PCP Mr. De La Garza is a 37-year-old male with a history of ADHD, kidney stones who presents to the emergency department due to recurrent right flank pain. The patient states that this began 1 year ago, where he had a 2-week history of hematuria. He saw a urologist at this time who stated that he may need intervention if this persisted. After 2 weeks, his hematuria resolved, and he has not had any further episodes since. He states that last Sunday, he had sudden onset right flank pain. He underwent lithotripsy on Sunday for this. He states that his pain improved after lithotripsy, however worsened 1 day later. He went to the emergency department again and was told that he had passed 2 stones, however it seemed that one was remaining. He was given fluids , pain medication and Flomax and told to follow-up with urology. He states that after the fluids, his pain improved, and he thought he had gravel in his urine. He was hopeful that he had passed the stone, however the following day his pain returned and got worse as the day progressed. He states he took 2 pain pills, however the pain was still significant. He also reports having a fever of 100 F at home and waking up in a cold sweat. He notes that he has missed 1 week of work due to this problem. He is also concerned as he has not had a bowel movement in 5 days, and attributes this to his pain medication. He also reports decreased appetite. He denies chest pain , shortness of breath, swelling in his legs. He has a family history significant for kidney stones. He states his aunts, cousins, and grandmother all have a history of recurrent kidney stones. He is otherwise healthy and does not have any new complaints. He states that his previous PCP retired, and he has not yet found a new one. Of note, he is a smoker. He has smoked 1 pack/day since age of 16. He states that he does not use alcohol anymore. He occasionally uses marijuana. Allergies Allergy/AdvReac Type Severity Reaction Status Date / Time bee venom protein (honey bee) Allergy Mild Unknown Unverified 07/05/18 12:06 No Known Drug Allergies Allergy Verified 07/05/18 12:35 shrimp AdvReac Severe Swelling Unverified 07/05/18 12:06 of Lip/Tongue/Throat Home Medications Home Medications Medication Instructions Recorded Confirmed Type ondansetron 4 mg PO Q6H PRN #12 tab 07/04/18 07/09/18 Rx pediatric multivitamin no.76 1 tab PO HS 07/04/18 07/09/18 History [Flintstones Complete] tamsulosin 0.4 mg PO HS 07/06/18 07/09/18 History oxycodone 5 mg PO Q6H PRN #14 tab 07/07/18 07/09/18 Rx Past Med/Surg History Medical History Ureterolithiasis Renal colic on right side Hematuria (Resolved) ADHD Kidney stone Surgical History S/P tendon repair Hx of wisdom tooth extraction Social History Current Living Situation: Family and Significant Other Other Information That Helps Us Care for You: No Feels Safe at Home: Yes Safety Concerns: Feels Safe At This Time Smoking Status: Current every day smoker Tobacco Type: cigarettes Do You Dip or Chew Tobacco: Yes Second Hand Exposure: No Tobacco Cessation Education Requested by Patient: No Hx Alcohol Use: No Hx Substance Use: Yes substance use type: marijuana Last Used Substance: Days ( ago) Last Used Substance Other:: 1 Beliefs That Will Affect Care: None Preferred Language: Tristanian Communication Ability: Effective 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 Review of Systems Constitutional: + fever, + chills and + sweats Respiratory: no cough, no pain on inspiration and no wheezing Cardiovascular: no chest pain, no palpitations, no syncope, no edema and no calf pain Gastrointestinal: + nausea (in the AM) and + constipation; no abdominal pain and no blood in stools Genitourinary (Male): + urinary frequency Physical Exam 2 Vital Signs (Past 24 Hours): Last Vital Signs Temp 36.9 C 07/09/18 19:03 Pulse 78 07/09/18 22:23 Resp 18 07/09/18 22:23 BP 124/66 07/09/18 22:23 Pulse Ox 95 07/09/18 22:23 Constitutional: WD/WN, vitals as above appears uncomfortable in any position other than laying on his back Eyes: PERRL, conjunctivae normal, anicteric sclerae ENMT: external ear and nose normal, oropharynx normal Respiratory: normal respiratory effort, lungs clear to auscultation Cardiovascular: RRR, no murmur, no edema Gastrointestinal (Abdomen): Percussion/Palpation: + abdomen tender (tender over right side of abdomen, towards flank) and abdomen soft; no guarding and abdomen not rigid Skin: no rashes, warm and dry Psychiatric: A+Ox3, euthymic affect Genitourinary: + CVA tenderness (right sided) Results & Data Laboratory Results Laboratory Results - last 24 hr 12/25/18 12/25/18 12/25/18 19:15 19:15 21:00 WBC 8.51 RBC 4.43 L Hgb 14.8 Hct 40.6 L MCV 91.6 MCH 33.4 MCHC 36.5 H RDW Std Deviation 40.7 RDW Coeff of Magan 12.0 Plt Count 332 MPV 9.3 Immature Gran % (Auto) 0.2 Neut % (Auto) 61.7 Lymph % (Auto) 27.8 [place]ink % (Auto) 8.6 Eos % (Auto) 1.5 Baso % (Auto) 0.2 Immature Gran # (Auto) 0.02 Neut # (Auto) 5.24 Lymph # (Auto) 2.37 [place]ink # (Auto) 0.73 H Eos # (Auto) 0.13 Baso # (Auto) 0.02 Sodium 136 Potassium 3.3 L Chloride 99 Carbon Dioxide 27 Anion Gap 10.0 BUN 19 H Creatinine 1.57 H Est Cr Clr Drug Dosing 80.5 Est GFR ( Amer) 64.8 Est GFR (Non-Af Amer) 55.9 BUN/Creatinine Ratio 12.2 Glucose 92 Calcium 9.4 Total Bilirubin 1.0 AST 15 ALT 39 Alkaline Phosphatase 78 Total Protein 8.1 Albumin 3.7 Globulin 4.4 H Albumin/Globulin Ratio 0.8 L Lipase 77 Urine Color Yellow Urine Appearance Clear Urine pH 6.0 Ur Specific [place] 1.019 Urine Protein Negative Urine Glucose (UA) Negative Urine Ketones Negative Urine Blood 3+ H Urine Nitrite Negative Urine Bilirubin Negative Urine Urobilinogen Positive H Ur Leukocyte Esterase 1+ H Urine WBC (Auto) 5-10 H Urine RBC (Auto) >30 H U Hyaline Cast (Auto) 0 U Epithel Cells (Auto) 5-10 H Urine Bacteria (Auto) Negative Supervising Physician Co-Signing Physician Notes Attending addendum: I have physically seen this patient, have supervised the medical residents activities, and agree with the H&P unless as otherwise noted. Assessment and Plan: Right ureterovesical stones, up to 7 mm in size/bilateral nephrolithiasis/ improving acute kidney injury/failure of outpatient treatment-- N.p.o. after midnight. Cipro 400 mg IV every 12 hours. Follow urine culture and sensitivity. Zofran 4 mg IV every 6 hours as needed. Dilaudid 0.5 mg IV every 3 hours as needed severe pain. Acetaminophen 1000 mg IV every 8 hours as needed mild pain or temperature. Creatinine has improved from 1.81 on 07/06, to 1.57 today. Continue rehydration with IV fluids and follow serial laboratories. Consult urology. Remainder of orders and notations as noted Resident Activity Tracking Resident Involvement: Resident Care Provided Care Provided: Adult [facility]
[2018-07-10] MEDS: HYDROmorphone INJ 1 MG/ML SYRINGE IV PRN ×5 (00:03→21:34)
[2018-07-10] MEDS ORDERED: HYDROmorphone INJ 0.5 MG/0.5 ML SYR IV PRN (00:55)
[2018-07-10] MEDS ORDERED: POLYETHYLENE (MIRALAX) 17 GM PACK PO PRN (00:55)
[2018-07-10] MEDS ORDERED: POTASSIUM CHLORIDE 20 MEQ TABCR PO STA (00:55)
[2018-07-10] MEDS ORDERED: ONDANSETRON INJ 2 MG/ML 2 ML VIAL IV PRN (00:55)
[2018-07-10] MEDS ORDERED: ACETAMINOPHEN 325 MG TAB PO PRN (00:55)
[2018-07-10] MEDS ORDERED: HYDROmorphone INJ 0.5 MG/0.5 ML SYR ONE (01:05)
[2018-07-10] MEDS: LACTATED RINGER'S 1,000 ML IV SCH ×3 (01:48→18:09)
[2018-07-10] MEDS ORDERED: CIPROFLOXACIN / D5W 200 MG/100 ML BAG IV SCH (02:00)
[2018-07-10] MEDS: NICOTINE 21 MG/24 HR TDSY TD SCH ×2 (02:17→10:35)
[2018-07-10] MEDS ORDERED: HYDROmorphone INJ 1 MG/ML SYRINGE IV STA (02:41)
[2018-07-10 06:12] LABS: Basophils # (auto) 0.02 K/uL (0-0.2); Basophils % (auto) 0.2 %; Eosinophils # (auto) 0.19 K/uL (0-0.5); Hematocrit (blood only) 38.3 % (42-52); Hemoglobin 13.5 g/dL (14.0-18.0); Immature Granulocytes # (auto) 0.01 K/uL (0.00-0.02); Immature Granulocytes % (auto) 0.1 %; Lymphocytes # (auto) 3.02 K/uL (1.2-3.4); Lymphocytes % (auto) 31.7 %; Mean Corpuscular Hgb Conc 35.2 g/dL (32-36); Mean Corpuscular Volume 91.4 fL (80-100); Mean Platelet Volume 9.1 fL (7.4-10.4); Monocytes # (auto) 0.92 K/uL (0.11-0.59); Monocytes % (auto) 9.7 %; Neutrophils # (auto) 5.36 K/uL (1.4-6.5); Neutrophils % (auto) 56.3 %; Platelet Count 273 K/uL (130-400); RDW Coefficient of Variation 12.1 % (11.5-14.5); RDW Standard Deviation 40.3 fL (36.4-46.3); Red Blood Count 4.19 M/uL (4.7-6.1); White Blood Count 9.52 K/uL (4.8-10.8)
[2018-07-10 06:46] LABS: BUN Creatinine Ratio 12.6 (10-20); Calcium 8.8 mg/dl (8.5-10.1); Creatinine Clr Calc Pharmacy 93.5 ml/min; Est GFR (African American) 78.4; Est GFR (Non-African American) 67.7; Potassium 4.1 mmol/L (3.5-5.1)
[2018-07-10] MEDS: ACETAMINOPHEN 1,000 MG/100 ML VIAL IV SCH ×3 (07:44→22:34)
[2018-07-10] MEDS ORDERED: INFLUENZA VIRUS QUAD VACCINE 0.5 ML SYR IM ONE (08:00)
[2018-07-10] MEDS ORDERED: INFLUENZA ADMINISTRATION CHARGE ONE (08:00)
--- NOTE | 2018-07-10 08:20 | Urology Consultation ---
Date of Consultation July 10, 2018 Assessment & Plan (1) Renal colic on right side: No hydronephrosis on Renal US, patient remains afebrile. Patient reports episodes of uncontrolled pain, however his pain is currently under control as patient was sleeping soundly upon entry to room. Patient voices frustration of continued pain. Explained that fragments of stone can continue to pass for 2 -3 weeks post ESWL. Patient wishes to return to work tomorrow, however, I think he needs continued observation and symptom control. No acute obstruction on imaging. OK for diet today. Continue Flomax. Continue IV Tylenol. Recommend addition of Toradol to pain regimen. NPO at midnight. Reassess tomorrow AM with IVP for detailed look at stone progression. (2) Intractable pain: (3) Constipation: Likely secondary to pain medicine. Recommend bowel regimen per primary service. History of Present Illness Reason for Consultation: Right flank pain Attending Physician: Lizzie Whelan MD History of Present Illness 37YO male POD #5 s/p R ESWL with R flank pain. Patient reports resolution of pain immediately s/p ESWL, then worsening of pain over the weekend not relieved by PO pain medicine, bringing him to the ER last night. Patient sleeping soundly and snoring upon my entry to the room. Upon waking patient reports terrible pain in his R flank/groin, currently under control, but at times is "beyond 10/10" in severity. Voiding spontaneously without difficulty +dysuria. Denies fever/chills. Denies nausea/vomiting. Renal US and KUB images reviewed: demonstrate resolution of R ureteral stone and hydronephrosis; persistent bilateral nephrolithiasis; likely stone fragments at R UVJ. Allergies Allergy/AdvReac Type Severity Reaction Status Date / Time bee venom protein (honey bee) Allergy Mild Unknown Unverified 07/05/18 12:06 No Known Drug Allergies Allergy Verified 07/05/18 12:35 shrimp AdvReac Severe Swelling Unverified 07/05/18 12:06 of Lip/Tongue/Throat Home Medications Home Medications Medication Instructions Recorded Confirmed Type ondansetron 4 mg PO Q6H PRN #12 tab 07/04/18 07/09/18 Rx pediatric multivitamin no.76 1 tab PO HS 07/04/18 07/09/18 History [Flintstones Complete] tamsulosin 0.4 mg PO HS 07/06/18 07/09/18 History oxycodone 5 mg PO Q6H PRN #14 tab 07/07/18 07/09/18 Rx Patient History Medical History Ureterolithiasis Renal colic on right side Hematuria (Resolved) ADHD Kidney stone Surgical History S/P tendon repair Hx of wisdom tooth extraction Social History Current Living Situation: Family and Significant Other Other Information That Helps Us Care for You: No Feels Safe at Home: Yes Safety Concerns: Feels Safe At This Time Smoking Status: Current every day smoker Tobacco Type: cigarettes Do You Dip or Chew Tobacco: Yes Second Hand Exposure: No Tobacco Cessation Education Requested by Patient: No Hx Alcohol Use: No Hx Substance Use: Yes substance use type: marijuana Last Used Substance: Days ( ago) Last Used Substance Other:: 1 Beliefs That Will Affect Care: None Preferred Language: Ethiopian Communication Ability: Effective Corporate Travel Expert Required: No Review of Systems Constitutional: no fever and no chills Eyes: no problem reported Ear, Nose, Mouth, Throat: no problem reported Respiratory: no dyspnea Cardiovascular: no chest pain Gastrointestinal: no nausea and no vomiting Genitourinary (Male): + dysuria; no difficulty urinating Musculoskeletal: + back pain Integumentary: no problem reported Neurologic: no tingling and no numbness Physical Exam 2 Vital Signs (Past 24 Hours): Last Vital Signs Temp 36.7 C 07/10/18 07:20 Pulse 63 07/10/18 07:20 Resp 18 07/10/18 07:20 BP 120/75 07/10/18 07:20 Pulse Ox 95 07/10/18 07:20 Constitutional: WD/WN, vitals as above Neck: normal visual inspection Respiratory: normal respiratory effort; does not use accessory muscles Cardiovascular: Vessels: no JVD Gastrointestinal (Abdomen): Inspection/Auscultation: abdomen not distended Percussion/Palpation: + abdomen tender and abdomen soft Psychiatric: A+Ox3, euthymic affect
[2018-07-10] MEDS ORDERED: DOCUSATE SODIUM 100 MG CAP PO SCH (09:00)
[2018-07-10] MEDS ORDERED: LORazepam 0.5 MG TAB PO PRN (10:41)
--- NOTE | 2018-07-10 10:51 | Hospitalist Progress Note ---
Date of Service July 10, 2018 Assessment & Plan (1) Ureterolithiasis: Mr. De La Garza is a 37-year-old male with a history of ADHD, kidney stones who presents to the emergency department due to recurrent right flank pain after recent lithotripsy last Sunday. Renal ultrasound on 07/09 with bilateral nephrolithiasis, with several calculi in the right ureterovesicular junction measuring up to 7 mm, but hydronephrosis is now resolved UA with some WBCs but does not appear overtly infected, no urine culture was collected -Urology consulted for management-plan for continued IV fluids, Flomax, pain control, and IVP tomorrow -No intervention at this time as is afebrile, but if persistent pain and dependent on IVP results tomorrow, may need intervention tomorrow -N.p.o. at midnight for possible intervention, but can eat today - increase Dilaudid to 1 mg every 2 hours as needed -Add on ketorolac 15 mg IV every 6 hours as needed as renal function is improved -Continue Zofran ordered as needed for nausea -Increase IV fluids to LR at 150 mL's per hour -Continue to strain urine -Continue Flomax 0.4 mg nightly -Increased dose of ciprofloxacin to 400 mg IV twice daily for prophylaxis given subjective fever at home (2) Acute kidney injury: -Patient had an elevated creatinine at 1.57 upon admission- actually improved from prior ED visit on 07/06, when his creatinine was 1.81 -Likely secondary to nephrolithiasis and previous obstruction Creatinine improved today and renal ultrasound now without obstruction. Creatinine at 1.34. -Follow BMP -Continue IV fluids (3) Constipation: Likely secondary to opioid use at home for kidney stones, no bowel movement since 07/04 -Start MiraLAX 3 times daily -Start Senokot/docusate 1 tab twice daily (4) ADHD: Not on medications for this at home (5) Current smoker: Patient having nicotine withdrawal here -Start nicotine patch 21 mg transdermal once daily -Ativan 0.5 mill grams p.o. every 8 hours as needed for anxiety or nicotine withdrawal (6) DVT prophylaxis: SCDs only in case of need for intervention Disposition-remain on medical/surgical floor Subjective Patient having severe right flank pain that sometimes radiates into his right groin. He is urinating quite frequently but not passing any stone since yesterday. He reports nausea as well as shortness of breath when the pain is severe but not currently having those symptoms. He was threatening to leave AGAINST MEDICAL ADVICE earlier because of his severe pain and felt that he was not getting adequate pain medication. He reports at home he was taking a lot of oxycodone and it was doing nothing for his pain. He is frustrated with his severe pain and wishes that urology would just place a stent and "be done with it." I discussed the case with the urology nurse practitioner on the phone-plan for IVP tomorrow with continued conservative measures overnight. Patient is now agreeable to stay overnight with improved pain control. He is also requesting to smoke a cigarette which I declined, but offered nicotine patch and Ativan. He has not had a bowel movement in 6 days. Reports he was taking MiraLAX "like 5 times a day" at home. Review of Systems All systems reviewed & are unremarkable except as noted in HPI & below Physical Exam 2 Vital Signs (Past 24 Hours): Last Vital Signs Temp 36.7 C 07/10/18 07:20 Pulse 63 07/10/18 07:20 Resp 18 07/10/18 07:20 BP 120/75 07/10/18 07:20 Pulse Ox 95 07/10/18 07:20 Constitutional: WD/WN, vitals as above + acute distress (tearful) Eyes: PERRL, conjunctivae normal, anicteric sclerae ENMT: external ear and nose normal, oropharynx normal Neck: trachea midline, no thyromegaly Respiratory: normal respiratory effort, lungs clear to auscultation Cardiovascular: RRR, no murmur, no edema Gastrointestinal (Abdomen): Inspection/Auscultation: abdomen normal to inspection and normal bowel sounds; abdomen not distended Percussion/ Palpation: + abdomen tender (RLQ w/o guarding or rebound) and abdomen soft Musculoskeletal: Extremities: extremities normal to inspection; no cyanosis and no clubbing Skin: no rashes, warm and dry Neurologic: moves all extremities and awake; no focal motor deficits Psychiatric: Orientation: alert and oriented x 3 Affect: + tearful affect and + irritable affect Results & Data Laboratory Results 07/10/18 07/10/18 07/09/18 Range/Units 06:01 06:01 21:00 WBC 9.52 (4.8-10.8) K/uL RBC 4.19 L (4.7-6.1) M/uL Hgb 13.5 L (14.0-18.0) g/dL Hct 38.3 L (42-52) % MCV 91.4 (80-100) fL MCH 32.2 (25-34) pg MCHC 35.2 (32-36) g/dL RDW Std Deviation 40.3 (36.4-46.3) fL RDW Coeff of Magan 12.1 (11.5-14.5) % Plt Count 273 (130-400) K/uL MPV 9.1 (7.4-10.4) fL Immature Gran % (Auto) 0.1 % Neut % (Auto) 56.3 % Lymph % (Auto) 31.7 % Adams % (Auto) 9.7 % Eos % (Auto) 2.0 % Baso % (Auto) 0.2 % Immature Gran # (Auto) 0.01 (0.00-0.02) K/uL Neut # (Auto) 5.36 (1.4-6.5) K/uL Lymph # (Auto) 3.02 (1.2-3.4) K/uL Adams # (Auto) 0.92 H (0.11-0.59) K/uL Eos # (Auto) 0.19 (0-0.5) K/uL Baso # (Auto) 0.02 (0-0.2) K/uL Sodium 138 (136-145) mmol/L Potassium 4.1 D (3.5-5.1) mmol/L Chloride 106 (98-107) mmol/L Carbon Dioxide 26 (21-32) mmol/L Anion Gap 6.0 (3-11) BUN 17 (7-18) mg/dl Creatinine 1.34 (0.6-1.4) mg/dl Est Cr Clr Drug Dosing 93.5 ml/min Est GFR ( Amer) 78.4 Est GFR (Non-Af Amer) 67.7 BUN/Creatinine Ratio 12.6 (10-20) Glucose 88 (70-99) mg/dl Calcium 8.8 (8.5-10.1) mg/dl Total Bilirubin (0.1-1) mg/dl AST (15-37) U/L ALT (12-78) U/L Alkaline Phosphatase (45-117) U/L Total Protein (6.4-8.2) gm/dl Albumin (3.4-5.0) gm/dl Globulin (2.5-4.0) gm/dl Albumin/Globulin Ratio (0.9-2) Lipase (73-393) U/L Urine Color Yellow Urine Appearance Clear (Clear) Urine pH 6.0 (4.5-7.5) Ur Specific [place] 1.019 (1.000-1.030) Urine Protein Negative (Negative) Urine Glucose (UA) Negative (Negative) Urine Ketones Negative (Negative) Urine Blood 3+ H (Negative) Urine Nitrite Negative (Negative) Urine Bilirubin Negative (Negative) Urine Urobilinogen Positive H (Negative) Ur Leukocyte Esterase 1+ H (Negative) Urine WBC (Auto) 5-10 H (0-5) /hpf Urine RBC (Auto) >30 H (0-4) /hpf U Hyaline Cast (Auto) 0 (0-5) /lpf U Epithel Cells (Auto) 5-10 H (0-5) /lpf Urine Bacteria (Auto) Negative (Negative) 07/09/18 07/09/18 Range/Units 19:15 19:15 WBC 8.51 (4.8-10.8) K/uL RBC 4.43 L (4.7-6.1) M/uL Hgb 14.8 (14.0-18.0) g/dL Hct 40.6 L (42-52) % MCV 91.6 (80-100) fL MCH 33.4 (25-34) pg MCHC 36.5 H (32-36) g/dL RDW Std Deviation 40.7 (36.4-46.3) fL RDW Coeff of Magan 12.0 (11.5-14.5) % Plt Count 332 (130-400) K/uL MPV 9.3 (7.4-10.4) fL Immature Gran % (Auto) 0.2 % Neut % (Auto) 61.7 % Lymph % (Auto) 27.8 % Adams % (Auto) 8.6 % Eos % (Auto) 1.5 % Baso % (Auto) 0.2 % Immature Gran # (Auto) 0.02 (0.00-0.02) K/uL Neut # (Auto) 5.24 (1.4-6.5) K/uL Lymph # (Auto) 2.37 (1.2-3.4) K/uL Adams # (Auto) 0.73 H (0.11-0.59) K/uL Eos # (Auto) 0.13 (0-0.5) K/uL Baso # (Auto) 0.02 (0-0.2) K/uL Sodium 136 (136-145) mmol/L Potassium 3.3 L (3.5-5.1) mmol/L Chloride 99 (98-107) mmol/L Carbon Dioxide 27 (21-32) mmol/L Anion Gap 10.0 (3-11) BUN 19 H (7-18) mg/dl Creatinine 1.57 H (0.6-1.4) mg/dl Est Cr Clr Drug Dosing 80.5 ml/min Est GFR ( Amer) 64.8 Est GFR (Non-Af Amer) 55.9 BUN/Creatinine Ratio 12.2 (10-20) Glucose 92 (70-99) mg/dl Calcium 9.4 (8.5-10.1) mg/dl Total Bilirubin 1.0 (0.1-1) mg/dl AST 15 (15-37) U/L ALT 39 (12-78) U/L Alkaline Phosphatase 78 (45-117) U/L Total Protein 8.1 (6.4-8.2) gm/dl Albumin 3.7 (3.4-5.0) gm/dl Globulin 4.4 H (2.5-4.0) gm/dl Albumin/Globulin Ratio 0.8 L (0.9-2) Lipase 77 (73-393) U/L Urine Color Urine Appearance (Clear) Urine pH (4.5-7.5) Ur Specific [place] (1.000-1.030) Urine Protein (Negative) Urine Glucose (UA) (Negative) Urine Ketones (Negative) Urine Blood (Negative) Urine Nitrite (Negative) Urine Bilirubin (Negative) Urine Urobilinogen (Negative) Ur Leukocyte Esterase (Negative) Urine WBC (Auto) (0-5) /hpf Urine RBC (Auto) (0-4) /hpf U Hyaline Cast (Auto) (0-5) /lpf U Epithel Cells (Auto) (0-5) /lpf Urine Bacteria (Auto) (Negative) _ (1) Constipation Constipation type: drug induced constipation Qualified Code(s): K59.03 - Drug induced constipation
[2018-07-10] MEDS ORDERED: KETOROLAC TROMETHAMINE 15 MG/ML VIAL IV PRN (11:02)
[2018-07-10] MEDS ORDERED: CIPROFLOXACIN / D5W 200 MG/100 ML BAG IV ONE (11:15)
[2018-07-10] MEDS ORDERED: TAMSULOSIN HCL 0.4 MG CAP PO ONE (11:38)
[2018-07-10] MEDS: DOCUSATE SODIUM/SENNA 50/8.6MG TAB PO SCH ×2 (12:18→21:17)
[2018-07-10] MEDS: POLYETHYLENE (MIRALAX) 17 GM PACK PO SCH ×3 (12:19→21:19)
[2018-07-10] MEDS: CIPROFLOXACIN 400 MG/200 ML BAG IV SCH (19:08)
[2018-07-10] MEDS ORDERED: TAMSULOSIN HCL 0.4 MG CAP PO SCH (21:00)
[2018-07-11] MEDS: LACTATED RINGER'S 1,000 ML IV SCH ×3 (03:05→10:23)
[2018-07-11] MEDS ORDERED: Nursing to Pharmacy Communication ONE (03:20)
[2018-07-11] MEDS: ACETAMINOPHEN 1,000 MG/100 ML VIAL IV SCH (07:09)
[2018-07-11 07:26] LABS: Calcium 9.2 mg/dl (8.5-10.1); Creatinine Clr Calc Pharmacy 97.9 ml/min; Est GFR (African American) 82.9; Est GFR (Non-African American) 71.5; Potassium 4.3 mmol/L (3.5-5.1)
[2018-07-11] MEDS: CIPROFLOXACIN 400 MG/200 ML BAG IV SCH (08:32)
[2018-07-11] MEDS: NICOTINE 21 MG/24 HR TDSY TD SCH (08:38)
[2018-07-11] MEDS: DOCUSATE SODIUM/SENNA 50/8.6MG TAB PO SCH (08:46)
[2018-07-11] MEDS: POLYETHYLENE (MIRALAX) 17 GM PACK PO SCH (08:46)
[2018-07-11] MEDS ORDERED: OPTIRAY 300 IV PRN (10:48)
--- NOTE | 2018-07-11 11:40 | Urology Progress Note ---
Date of Service July 11, 2018 Assessment & Plan (1) Renal colic on right side: Drastic improvement after passage of multiple fragments. These were sent by floor. Plan to check imaging to confirm but likely spontaneous passage after aggressive hydration and max expulsion therapy Patient will monitor. Will likely need other stone treated at some point. Would still be candidate for ESWL. WIll monitor. If fevers or changes, can reconsider stent. (2) Intractable pain: (3) Constipation: Likely secondary to pain medicine. Recommend bowel regimen per primary service. Subjective Drastically improved after passing 2-3 large stones and many small fragments. Pain almost completely resolved. No major issues. nO bleeding. no fevers or chills. Still has left stone but no pain or issues. Genitourinary (Male): + dysuria; no difficulty urinating Musculoskeletal: + back pain Physical Exam 2 Vital Signs (Past 24 Hours): Last Vital Signs Temp 36.8 C 07/11/18 09:58 Pulse 76 07/11/18 09:58 Resp 20 07/11/18 09:58 BP 132/95 07/11/18 09:58 Pulse Ox 98 07/11/18 09:58 Constitutional: WD/WN, vitals as above Eyes: PERRL, conjunctivae normal, anicteric sclerae ENMT: external ear and nose normal, oropharynx normal Neck: trachea midline, no thyromegaly normal visual inspection Respiratory: normal respiratory effort, lungs clear to auscultation normal respiratory effort; does not use accessory muscles Cardiovascular: RRR, no murmur, no edema Vessels: no JVD Gastrointestinal (Abdomen): Inspection/Auscultation: abdomen normal to inspection and normal bowel sounds; abdomen not distended Percussion/ Palpation: abdomen soft; no guarding and abdomen not rigid Musculoskeletal: Extremities: extremities normal to inspection; no cyanosis and no clubbing Skin: no rashes, warm and dry Neurologic: moves all extremities and awake; no focal motor deficits Psychiatric: A+Ox3, euthymic affect Orientation: alert and oriented x 3 Affect: no irritable affect Genitourinary: no CVA tenderness (right sided) _ (1) Constipation Constipation type: drug induced constipation Qualified Code(s): K59.03 - Drug induced constipation
--- NOTE | 2018-07-11 11:49 | XRay Report ---
XR IVP wo/w tomograms CLINICAL HISTORY: Nephrolithiasis COMPARISON STUDY: CT scan dated 07/04/2018 FINDINGS: Cashier Supervisor radiographs reveal a 5 mm mid pole right renal calculus and 1 cm left renal calculus, at the level of the left renal pelvis. The patient was injected with 100 cc of Optiray 300. The 1 minute film reveals slightly delayed excre tion on the right. On the 5 minute film, there is no significant hydronephrosis. Single ureters drain each kidney. There is no evidence of significant ureteral dilatation. No collecting system or ureter al filling defects are visualized. On the post void film, there is near complete bladder emptying. Th e right ureter is nonvisualized the post void film. There is a standing left ureteral column without evidence of significant dilatation.. IMPRESSION: 1. Bilateral nephrolithiasis 2. Delayed excretion on the right, but no obstructing calculi are visualized on this intravenous urog gil. 3. No significant hydronephrosis Electronically signed by: Gilmar Warren M.D. 07/11/2018 11:48 AM
--- NOTE | 2018-07-11 13:32 | Discharge Summary ---
Date of Service July 11, 2018 Admission HPI Per Admitting Provider Mr. De La Garza is a 37-year-old male with a history of ADHD, kidney stones who presents to the emergency department due to recurrent right flank pain. The patient states that this began 1 year ago, where he had a 2-week history of hematuria. He saw a urologist at this time who stated that he may need intervention if this persisted. After 2 weeks, his hematuria resolved, and he has not had any further episodes since. He states that last Sunday, he had sudden onset right flank pain. He underwent lithotripsy on Sunday for this. He states that his pain improved after lithotripsy, however worsened 1 day later. He went to the emergency department again and was told that he had passed 2 stones, however it seemed that one was remaining. He was given fluids , pain medication and Flomax and told to follow-up with urology. He states that after the fluids, his pain improved, and he thought he had gravel in his urine. He was hopeful that he had passed the stone, however the following day his pain returned and got worse as the day progressed. He states he took 2 pain pills, however the pain was still significant. He also reports having a fever of 100 F at home and waking up in a cold sweat. He notes that he has missed 1 week of work due to this problem. He is also concerned as he has not had a bowel movement in 5 days, and attributes this to his pain medication. He also reports decreased appetite. He denies chest pain , shortness of breath, swelling in his legs. He has a family history significant for kidney stones. He states his aunts, cousins, and grandmother all have a history of recurrent kidney stones. He is otherwise healthy and does not have any new complaints. He states that his previous PCP retired, and he has not yet found a new one. Of note, he is a smoker. He has smoked 1 pack/day since age of 16. He states that he does not use alcohol anymore. He occasionally uses marijuana. Principal Diagnosis Ureterolithiasis Discharge Exam Constitutional WD/WN, vitals as above Eyes PERRL, conjunctivae normal, anicteric sclerae ENMT external ear and nose normal, oropharynx normal Neck trachea midline, no thyromegaly Respiratory normal respiratory effort, lungs clear to auscultation Cardiovascular RRR, no murmur, no edema Gastrointestinal (Abdomen) Inspection/Auscultation: abdomen normal to inspection and normal bowel sounds; abdomen not distended Percussion/Palpation: abdomen soft Musculoskeletal Extremities: extremities normal to inspection; no cyanosis and no clubbing Skin no rashes, warm and dry Neurologic moves all extremities and awake; no focal motor deficits Psychiatric Orientation: alert and oriented x 3 Discharge Data Allergies Allergy/AdvReac Type Severity Reaction Status Date / Time bee venom protein (honey bee) Allergy Mild Unknown Unverified 07/05/18 12:06 No Known Drug Allergies Allergy Verified 07/05/18 12:35 shrimp AdvReac Severe Swelling Unverified 07/05/18 12:06 of Lip/Tongue/Throat Consultations 07/09/18 22:11 ED Decision to Admit Stat 07/10/18 00:55 Consult Urology Routine Procedures Performed Operation Date: 07/11/18 09:55 <No data on this case meets the specified criteria> Ordered Studies 07/09/18 19:32 US renal/blad retro comp Stat Hospital Course (1) Renal colic: (1) Ureterolithiasis: Mr. De La Garza is a 37-year-old male with a history of ADHD, kidney stones who presents to the emergency department due to recurrent right flank pain after recent lithotripsy last Sunday. Renal ultrasound on 07/09 with bilateral nephrolithiasis, with several calculi in the right ureterovesicular junction measuring up to 7 mm, but hydronephrosis is now resolved UA with some WBCs but does not appear overtly infected, no urine culture was collected -Urology consulted for management-was treated with IV fluids, Flomax, pain control. He passed multiple stones and and IVP on the day of discharge showed no obstruction He was feeling significantly improved -No intervention at this time as is afebrile, but if has recurrent pain, may need intervention with stent placement in the future -Advised plenty of p.o. fluid intake upon discharge -Continue Flomax 0.4 mg nightly -Continue on Cipro 500 mg p.o. twice daily x3 more days after discharge -Follow-up with urology within 1 week in the office -Stones were sent for analysis and should be followed up after discharge (2) Acute kidney injury: -Patient had an elevated creatinine at 1.57 upon admission- actually improved from prior ED visit on 07/06, when his creatinine was 1.81. Creatinine was improved to 1.28 on the day of discharge after obstruction was relieved -Likely secondary to nephrolithiasis and previous obstruction His renal ultrasound was now without obstruction. (3) Constipation: Likely secondary to opioid use at home for kidney stones, no bowel movement since 07/04, but feels like he will as soon as he gets home -Continue MiraLAX 3 times daily -Continue docusate 1 tab twice daily upon discharge (4) ADHD: Not on medications for this at home (5) Current smoker: Patient had nicotine withdrawal here -Treated with nicotine patch 21 mg transdermal once daily and Ativan 0.5 mill grams p.o. every 8 hours as needed for anxiety or nicotine withdrawal Smoking cessation counseling was given (6) DVT prophylaxis: SCDs were provided Disposition-stable for discharge to home Total Time Total Time Spent Total Time Spent (In Minutes): Greater than 30 minutes Total Time Includes: Examination of the Patient, Discharge Planning and Medication Reconciliation Discharge Plan Discharge Items Patient Disposition: Home - Self-Care Reason For Visit: NEPHROLITHIASIS, FAILED OUTPATIENT MANAGEMENT Discharge Diagnosis: Ureterolithiasis Condition: Good Discharge Goals: Decrease discomfort, Diagnostic testing, Improve disease control and Therapeutic intervention Activity: Resume your previous activity Lifting: None Bathing: No limitations Exercise/Sports: Gradually increase as tolerated Driving/Machine Use: No limitations Non-emergency contact: Primary Care Provider Call non-emergency contact if: you have any medication questions, your symptoms worsen, your pain is not controlled, your pain is worsening, your pain is unusual for you, your pain is concerning for you, you have a fever and your temperature is above 101 Follow-up/Referrals: Seng Leal MD [Physician] - (Follow up within 1 week) Mateusz Navarro [Physician] - 07/17/18 3:15 pm (Please, follow up at [facility] in [place] with Dr. Mateusz Navarro on SundayJuly 17 at 3:15 pm. *If you need to change/cancel this appointment, call the office at [phone]. ) Diet: Regular Diet Comment: Please drink at least 10 glasses of water daily Addtl Provider Instructions: You were admitted for severe pain from kidney stones and were treated with IV fluids and pain medication. You passed multiple stones and had relief of your pain.It is important to continue to treat your constipation with laxatives and stool softeners at home. Please follow up with your Urologist within 1 week. Continue taking the Flomax daily and the Cipro (antibiotics) for 3 more days. It is very important for your health to QUIT SMOKING immediately. You can use your time in the hospital as a starting point on your road to quitting as you have not smoked now in 2 days. Prescriptions: New ciprofloxacin HCl 500 mg Tablet 500 mg PO BID Qty: 6 RF: 0 nicotine [Nicoderm CQ] 21 mg/24 hr Patch 24 Hour 21 mg Transdermal QAM Qty: 14 RF: 0 acetaminophen [Mapap (acetaminophen)] 325 mg Tablet 650 mg PO Q4H PRN (Reason: pain) Qty: 30 RF: 0 polyethylene glycol 3350 [Miralax] 17 gram Powder In Packet 17 g PO TID Qty: 10 RF: 0 docusate sodium 100 mg capsule 100 mg PO BID Qty: 20 RF: 0 Continue ondansetron 4 mg tablet,disintegrating 4 mg PO Q6H PRN (Reason: nausea and vomiting) Qty: 12 RF: 0 tamsulosin 0.4 mg Capsule 0.4 mg PO HS RF: 0 Discontinued pediatric multivitamin no.76 [Flintstones Complete] Tablet,Chewable 1 tab PO HS RF: 0 oxycodone 5 mg tablet 5 mg PO Q6H PRN (Reason: pain) Qty: 14 RF: 0 Visit Report Forms: My [facility] Portal Stand-Alone Forms: [facility] Discharge Orders: Discharge Order (Routine); Ordered 07/11/18 Ordered By: Lizzie Whelan Admission Data Admit Date/Time: 07/10/18 10:43 Attending Provider: Lizzie Whelan Admit Provider: Glenn Ritchie Primary Care Provider: Kateryna Irby Other Providers: Mateo Jane ; Leonardo Rodas ; Mariusz Morel ; Nimesh Costa I ; Seng Leal ; Hunter Jimenez II ; Ely Gutierrez Service: Surgical Services Other Interventions: Discharge Summary Assessment (RN) Last Done: 07/11/18 13:37 Pending Studies at Discharge: No DC Date/Time DO NOT enter until pt leaves facility: 07/11/18 14:03
[2018-07-11] MEDS ORDERED: CIPROFLOXACIN 500 MG TAB PO SCH (21:00)
[2018-07-17 09:26] LABS: Component 2 DNR
[2018-07-17 09:26] LABS: Component 2 DNR
== END 2018-07-11 14:03 | disposition home or self-care (01) | DRG 694 ==
LOC: ED 18:55 → 3W 18:55 → SUATTDRO 23:22 → 3W 07-10 00:40

== ENCOUNTER 2023-09-25 10:35 | Observation (INO) ==
[2023-09-25 11:28] LABS: Basophils # (auto) 0.05 K/uL (0.00-0.20); Basophils % (auto) 0.6 %; Eosinophils # (auto) 0.08 K/uL (0.00-0.50); Eosinophils % (auto) 0.9 %; Hemoglobin 16.3 g/dl (14.0-18.0); Immature Granulocytes # (auto) 0.02 K/uL (0.01-0.20); Immature Granulocytes % (auto) 0.2 %; Lymphocytes # (auto) 2.59 K/uL (1.20-3.40); Lymphocytes % (auto) 28.8 %; Mean Corpuscular Hemoglobin 31.7 pg (25.0-34.0); Mean Corpuscular Hgb Conc 36.2 g/dL (32.0-36.0); Mean Corpuscular Volume 87.4 fL (80.0-100.0); Mean Platelet Volume 10.2 fL (9.4-12.4); Monocytes # (auto) 0.53 K/uL (0.11-0.59); Monocytes % (auto) 5.9 %; Neutrophils # (auto) 5.72 K/uL (1.40-6.50); Neutrophils % (auto) 63.6 %; Platelet Count 307 K/uL (130-400); RDW Coefficient of Variation 11.9 % (11.5-14.5); RDW Standard Deviation 37.7 fL (36.4-46.3); Red Blood Count 5.15 M/uL (4.70-6.10); White Blood Count 8.99 K/ul (4.8-10.8)
[2023-09-25 11:47] LABS: Albumin Globulin Ratio 1.4 (0.9-2); Albumin Level 4.3 gm/dl (3.4-5.0); BUN Creatinine Ratio 12.1 (10-20); Bilirubin,Total 1.1 mg/dl (0.2-1.0); Calcium 9.4 mg/dl (8.6-10.3); Creatinine Clr Calc Pharmacy 132.8 ml/min; Est GFR (African American) 109.2 ml/min; Est GFR (Non-African American) 94.2 ml/min; Globulin 3.1 gm/dl (2.5-4.0); Potassium 3.8 mmol/L (3.5-5.1); Total Protein 7.4 gm/dl (6.0-8.3)
[2023-09-25] MEDS: SODIUM CHLORIDE 0.9% 1,000 ML IV ONE (11:52)
[2023-09-25 12:09] LABS: Appearance Urine Clear (Clear); Bacteria Urine Automated Negative (Negative); Bilirubin Urine Negative (Negative); Blood Urine 2+ (Negative); Color Urine Dark Yellow; Glucose Urine UA 3+ (Negative); Ketones Urine Negative (Negative); Leukocyte Esterase Urine Negative (Negative); Nitrite Urine Negative (Negative); Protein Urine 1+ (Negative); Specific Gravity Urine 1.024 (1.000-1.030); Urobilinogen Urine Negative (Negative)
--- NOTE | 2023-09-25 12:16 | Emergency Department Note ---
Impression & Plan Acute right flank pain, Hematuria, Diabetes mellitus, new onset ED Provider Note NAME: SADAF DEXTER AGE: 42 SEX: Male INFORMANT: Patient ED PROVIDER(S): Benedicto Schroeder MD CHIEF COMPLAINT: Urinary symptoms and fatigue PLAN: Disposition: Admitted Outpatient prescription management: none Referral: None MEDICAL DECISION MAKING: Patient presented because urinary symptoms and fatigue. He had an Accu-Chek done in triage which revealed a blood glucose over 300. Patient reports no history of diabetes. Laboratory testing was performed. Patient was given IV hydration with normal saline. He declined analgesia. Patient was sent for CT imaging due to the complaints of hematuria and flank pain. CBC was unremarkable. Chemistry panel reveals hyperglycemia but no evidence of DKA. Elevated LFTs noted. Patient CT imaging reveals nephrolithiasis but no ureterolithiasis. No sign of infection on urinalysis. Patient did have improvement of his hyperglycemia with IV hydration. Patient did note a mild headache and was given Tylenol. Patient will need further management in the hospital due to this new onset diabetes. Discussed the case with the [facility] service. Patient will be evaluated by the team and admitted under Dr. Santamaria. Care/management discussed with: manager area Level of care consideration(s): After review of the information above and other included data, I feel the patient requires escalation of care to admission Triage Nursing notes: reviewed and agree them. Vital Signs: reviewed and remarkable for no significant abnormalities Additional History obtained from: none Chronic Medical/Social Conditions affecting care: none Prior/ Outside/ External records reviewed: none Differential Diagnosis: Renal colic, UTI, appendicitis, diverticulitis, mesenteric ischemia, aortic pathology, infections, inflammatory bowel disease, PUD, biliary pathology, as well as other pathologies. Diagnostics, independently interpreted by me: EC Lead ECG performed and revealed Normal sinus rhythm at 96, normal [place], QRS normal. No elevation or depression. No PACs or PVCs Cardiac Monitoring: Cardiac monitoring ordered by me: The patient was placed on continuous cardiac monitoring and observed. It revealed a normal sinus rhythm at 88 beats per minute without ectopy or evidence of dysrhythmia. Medical decision rules: none Imaging studies: CT imaging reveals nephrolithiasis. I refer you to the EMR for further details. HPI: 42 year old Male arrives for evaluation of urinary symptoms and fatigue.This started about 2 weeks ago and is persisting. The patient also notes the following associated symptoms, frequent urination, dark-colored urine intermittently, right flank pain, fleeting right upper quadrant abdominal pain several days ago which resolved, fleeting left-sided chest pain over the weekend (several days ago) which resolved. The patient has found no relieving factors. Current pain is rated as 0/10. Pain at times did reach maximum of 8. Pt denies LOC, headache, fevers, chills, diaphoresis, visual changes, neck pain, chest pain, breathing difficulties, nausea, vomiting, melena, hematochezia, numbness, focal weakness, lymphadenopathy, rash, or other complaints. PAST MEDICAL HISTORY: See Below, patient denies PAST SURGICAL HISTORY: See Below, SOCIAL HISTORY: See Below, smoker HOME MEDICATIONS: See Below ALLERGIES: See Below VITALS: See Below PHYSICAL EXAMINATION: GENERAL: Awake, alert, well-appearing, in no distress HENT: Normocephalic, atraumatic. Oropharynx unremarkable. EYES: Normal conjunctiva. Sclera non-icteric. NECK: Inspection normal. Non-tender. Supple. No nuchal rigidity. FROM. No masses. RESPIRATORY: Clear to auscultation. No wheezes. No rales. Normal respiratory effort. CARDIAC: Normal rate. Normal rhythm. No murmurs. No rubs. Extremities warm and well perfused. Pulses equal. No JVD. GI: Soft, non-distended. No tenderness to palpation. No rebound or guarding. No masses. RECTAL: Deferred. MUSCULOSKELETAL: Atraumatic. Chest examination reveals no tenderness. The back is symmetrical on inspection without obvious abnormality. There is no CVA tenderness to palpation. No joint edema. LOWER EXTREMITIES: Calves are equal size bilaterally and non-tender. No edema. No discoloration. NEURO: Normal sensorium. No sensory or motor deficits noted. SKIN: No rash or jaundice noted. PROCEDURES: none CRITICAL CARE: none OBSERVATION NOTE: none Past Med/Surg History Medical History BETSY (obstructive sleep apnea) Obesity (BMI 30-39.9) Tobacco use disorder Renal colic on right side Ureterolithiasis ADHD Kidney stone Hematuria Surgical History History of anesthesia reaction WOKE UP DURING PREVIOUS LITHOTRIPSY - 1 YEAR AGO [facility] History of wisdom tooth extraction History of lithotripsy S/P tendon repair FINGER - RT HAND Family History Other No family history of adverse response to anesthesia Social History Smoking Status: Current every day smoker Tobacco Type: Cigarettes Cigarettes Per Day: 1 pack/day; Second Hand Exposure: No; Do You Dip or Chew Tobacco: No; Tobacco Cessation Education Requested by Patient: No Hx Alcohol Use: No Hx Substance Use: No Preferred Language: Khmer Communication Ability: Effective Counseling Services Manager Required: No Beliefs That Will Affect Care: None Current Living Situation: Family Other Information That Helps Us Care for You: No Feels Safe at Home: No Is there a partner from a previous relationship who is making you feel unsafe now?: No Any Concerns about Your Family Situation: No Would You Like to Speak to Someone About Your Situation: No Safety Concerns: Feels Safe At This Time Assistive Devices: None Allergies Allergies Allergy/AdvReac Type Severity Reaction Status Date / Time shrimp Allergy Severe Swelling Verified 09/25/23 12:34 of Lip/Tongue/Throat bee venom protein (honey bee) Allergy Mild Unknown Verified 09/25/23 12:34 tramadol AdvReac Mild Nausea Verified 09/25/23 12:34 Home Meds Home Medications Medication Instructions Recorded Confirmed dexmethylphenidate 10 mg tablet 10 mg PO QDL 06/30/19 09/25/23 dexmethylphenidate 20 mg 20 mg PO QAM 06/30/19 09/25/23 capsule,extended release [id number] Results & Data (ED) Vital Signs Vital Signs - 24 hr 09/25/23 10:47 09/25/23 11:36 09/25/23 13:32 Temperature 35.8 C L Temperature Source Temporal Artery Scan Pulse Rate 97 H Pulse Rate [Apical] 96 H 88 Respiratory Rate 20 14 14 Blood Pressure 153/115 H Blood Pressure [Right Arm] 144/106 H 143/106 H Blood Pressure Mean 127 Blood Pressure Mean [Right Arm] 118 118 Pulse Oximetry 96 94 95 Oxygen Delivery Method Room Air Room Air Sepsis Recent Fever Within 48 Hours No Sepsis New/Unexplained Change in Mental Status N/A Sepsis Action Taken by Nursing No Action Required Laboratory Data 09/25/23 11:08 09/25/23 11:08 Lab Results 09/25/23 09/25/23 09/25/23 Range/Units 10:52 11:08 11:38 WBC 8.99 (4.8-10.8) K/ul RBC 5.15 (4.70-6.10) M/uL Hgb 16.3 (14.0-18.0) g/dl Hct 45.0 (42.0-52.0) % MCV 87.4 (80.0-100.0) fL MCH 31.7 (25.0-34.0) pg MCHC 36.2 H (32.0-36.0) g/dL RDW Std Deviation 37.7 (36.4-46.3) fL RDW Coeff of Magan 11.9 (11.5-14.5) % Plt Count 307 (130-400) K/uL MPV 10.2 (9.4-12.4) fL Immature Gran % (Auto) 0.2 % Neut % (Auto) 63.6 % Lymph % (Auto) 28.8 % [place] % (Auto) 5.9 % Eos % (Auto) 0.9 % Baso % (Auto) 0.6 % Neut # (Auto) 5.72 (1.40-6.50) K/uL Lymph # (Auto) 2.59 (1.20-3.40) K/uL [place] # (Auto) 0.53 (0.11-0.59) K/uL Eos # (Auto) 0.08 (0.00-0.50) K/uL Baso # (Auto) 0.05 (0.00-0.20) K/uL Immature Gran # (Auto) 0.02 (0.01-0.20) K/uL Sodium 132 L (136-145) mmol/L Potassium 3.8 (3.5-5.1) mmol/L Chloride 97 L (98-107) mmol/L Carbon Dioxide 25 (21-32) mmol/L Anion Gap 10 (3-11) BUN 12 (6-23) mg/dl Creatinine 0.99 (0.6-1.4) mg/dl Est Cr Clr Drug Dosing 132.8 ml/min Est GFR ( Amer) 109.2 ml/min Est GFR (Non-Af Amer) 94.2 ml/min BUN/Creatinine Ratio 12.1 (10-20) Glucose 362 H* (70-99(Fasting)) mg/dl POC Glucose 355 H* (70-99) mg/dl Estimat Average Glucose 237 mg/dl Hemoglobin A1c 9.9 H (4.5-5.6) % Calcium 9.4 (8.6-10.3) mg/dl Total Bilirubin 1.1 H (0.2-1.0) mg/dl AST 95 H (13-39) U/L ALT 216 H (7-52) U/L Alkaline Phosphatase 138 H (34-104) U/L Troponin I High Sens (0-20) pg/ml Total Protein 7.4 (6.0-8.3) gm/dl Albumin 4.3 (3.4-5.0) gm/dl Globulin 3.1 (2.5-4.0) gm/dl Albumin/Globulin Ratio 1.4 (0.9-2) Lipase 25 (11-82) U/L Urine Color Dark Yellow Urine Appearance Clear (Clear) Urine pH 5.0 (4.5-7.5) Ur Specific [place] 1.024 (1.000-1.030) Urine Protein 1+ H (Negative) Urine Glucose (UA) 3+ H (Negative) Urine Ketones Negative (Negative) Urine Blood 2+ H (Negative) Urine Nitrite Negative (Negative) Urine Bilirubin Negative (Negative) Urine Urobilinogen Negative (Negative) Ur Leukocyte Esterase Negative (Negative) Urine WBC (Auto) 1-5 (0-5) /hpf Urine RBC (Auto) 5-10 H (0-4) /hpf U Hyaline Cast (Auto) 10-30 H (0-5) /lpf U Epithel Cells (Auto) 10-20 H (0-5) /lpf Urine Bacteria (Auto) Negative (Negative) Granular Casts 10-20 H (0) /lpf 24 09/25/23 Range/Units 12:24 14:00 WBC (4.8-10.8) K/ul RBC (4.70-6.10) M/uL Hgb (14.0-18.0) g/dl Hct (42.0-52.0) % MCV (80.0-100.0) fL MCH (25.0-34.0) pg MCHC (32.0-36.0) g/dL RDW Std Deviation (36.4-46.3) fL RDW Coeff of Magan (11.5-14.5) % Plt Count (130-400) K/uL MPV (9.4-12.4) fL Immature Gran % (Auto) % Neut % (Auto) % Lymph % (Auto) % [place] % (Auto) % Eos % (Auto) % Baso % (Auto) % Neut # (Auto) (1.40-6.50) K/uL Lymph # (Auto) (1.20-3.40) K/uL [place] # (Auto) (0.11-0.59) K/uL Eos # (Auto) (0.00-0.50) K/uL Baso # (Auto) (0.00-0.20) K/uL Immature Gran # (Auto) (0.01-0.20) K/uL Sodium (136-145) mmol/L Potassium (3.5-5.1) mmol/L Chloride (98-107) mmol/L Carbon Dioxide (21-32) mmol/L Anion Gap (3-11) BUN (6-23) mg/dl Creatinine (0.6-1.4) mg/dl Est Cr Clr Drug Dosing ml/min Est GFR ( Amer) ml/min Est GFR (Non-Af Amer) ml/min BUN/Creatinine Ratio (10-20) Glucose (70-99(Fasting)) mg/dl POC Glucose 247 H (70-99) mg/dl Estimat Average Glucose mg/dl Hemoglobin A1c (4.5-5.6) % Calcium (8.6-10.3) mg/dl Total Bilirubin (0.2-1.0) mg/dl AST (13-39) U/L ALT (7-52) U/L Alkaline Phosphatase (34-104) U/L Troponin I High Sens 3.9 (0-20) pg/ml Total Protein (6.0-8.3) gm/dl Albumin (3.4-5.0) gm/dl Globulin (2.5-4.0) gm/dl Albumin/Globulin Ratio (0.9-2) Lipase (11-82) U/L Urine Color Urine Appearance (Clear) Urine pH (4.5-7.5) Ur Specific [place] (1.000-1.030) Urine Protein (Negative) Urine Glucose (UA) (Negative) Urine Ketones (Negative) Urine Blood (Negative) Urine Nitrite (Negative) Urine Bilirubin (Negative) Urine Urobilinogen (Negative) Ur Leukocyte Esterase (Negative) Urine WBC (Auto) (0-5) /hpf Urine RBC (Auto) (0-4) /hpf U Hyaline Cast (Auto) (0-5) /lpf U Epithel Cells (Auto) (0-5) /lpf Urine Bacteria (Auto) (Negative) Granular Casts (0) /lpf Administered Medications Sodium Chloride (Nss) 1,000 mls @ 125 mls/hr IV .Q8H PARMINDER Stop: 10/25/23 11:44 Last Admin: 09/25/23 14:34 Dose: 125 mls/hr Documented By: SHA Discontinued Medications Acetaminophen (Acetaminophen 500 Mg Tab) 1,000 mg PO NOW STA Stop: 09/25/23 14:39 Last Admin: 09/25/23 14:40 Dose: 1,000 mg Documented By: SHA Sodium Chloride (Nss) 1,000 mls @ 999 mls/hr IV .Q1H1M ONE Stop: 09/25/23 12:44 Last Infusion: 09/25/23 14:32 Dose: Infused Documented By: Admin: 09/25/23 11:52 Dose: 999 mls/hr Documented By: SHA Imaging Data Radiologist's Impression: Abdomen/Pelvis CT 09/25/23 11:[address] WITHOUT CONTRAST CT DOSE: 1637.8 mGy.cm HISTORY: Acute right-sided flank pain with hematuria right flank pain, hematuria TECHNIQUE: Multiaxial CT images of the abdomen and pelvis were performed without contrast. A dose lowering technique was utilized adhering to the principles of ALARA. COMPARISON STUDY: CT 07/11/2019 FINDINGS: Mild subsegmental bibasilar atelectasis. There is no free air. Unremarkable spleen, pancreas, gallbladder and adrenal glands. Hepatic steatosis with mild hepatomegaly. There are at least 3 nonobstructing calculi of the right kidney measuring up to 9 mm. Punctate nonobstructing calculus of the inferior pole left kidney. No ureteral calculi or hydronephrosis. Partial distention of the urinary bladder with mild wall thickening. Mild prostatomegaly. Atherosclerosis of the aorta without aneurysm. No lymphadenopathy. No bowel obstruction or bowel wall thickening. No ascites or mesenteric inflammation. Colonic diverticulosis. Normal appendix. No acute fracture. IMPRESSION: 1. Nonobstructing bilateral nephrolithiasis. No ureteral calculi or hydronephrosis. 2. Hepatic steatosis. 3. Normal appendix. ACT 112: Negative or not required by law. The above report was generated using voice recognition software. It may contain grammatical, syntax or spelling errors. Electronically signed by: Abelino Livingston M.D. 09/25/2023 12:27 PM Discharge Plan Visit Data Chief Complaint: Urinary Symptoms Stated Complaint: FREQUENT URINATION, CRAMPING, BACK PAIN ED Provider: Benedicto Schroeder Discharge Problem: Acute right flank pain, Hematuria, Diabetes mellitus, new onset
--- NOTE | 2023-09-25 12:29 | CT Scan Report ---
ABDOMEN AND PELVIS CT WITHOUT CONTRAST CT DOSE: 1637.8 mGy.cm HISTORY: Acute right-sided flank pain with hematuria right flank pain, hematuria TECHNIQUE: Multiaxial CT images of the abdomen and pelvis were performed without contrast. A dose lo wering technique was utilized adhering to the principles of ALARA. COMPARISON STUDY: CT 07/11/2019 FINDINGS: Mild subsegmental bibasilar atelectasis. There is no free air. Unremarkable spleen, pancrea s, gallbladder and adrenal glands. Hepatic steatosis with mild hepatomegaly. There are at least 3 nonobstructing calculi of the right kidney measuring up to 9 mm. Punctate nonobs tructing calculus of the inferior pole left kidney. No ureteral calculi or hydronephrosis. Partial di stention of the urinary bladder with mild wall thickening. Mild prostatomegaly. Atherosclerosis of th e aorta without aneurysm. No lymphadenopathy. No bowel obstruction or bowel wall thickening. No ascites or mesenteric inflammation. Colonic diverti culosis. Normal appendix. No acute fracture. IMPRESSION: 1. Nonobstructing bilateral nephrolithiasis. No ureteral calculi or hydronephrosis. 2. Hepatic steatosis. 3. Normal appendix. ACT 112: Negative or not required by law. The above report was generated using voice recognition software. It may contain grammatical, syntax o r spelling errors. Electronically signed by: Abelino Livingston M.D. 09/25/2023 12:27 PM
[2023-09-25] MEDS: SODIUM CHLORIDE 0.9% 1,000 ML IV SCH (14:34)
[2023-09-25 14:36] LABS: Estimated Average Glucose 237 mg/dl; Hemoglobin A1C 9.9 % (4.5-5.6)
[2023-09-25] MEDS: ACETAMINOPHEN 500 MG TAB PO STA (14:40)
[2023-09-25] MEDS ORDERED: PHARMACY GLYCEMIC MGMT CONSULT PRN (14:58)
--- NOTE | 2023-09-25 15:00 | History & Physical Report ---
Date of Service September 25, 2023 Assessment & Plan (1) Diabetes mellitus, new onset: Plan: This is a 42-year-old male with PMH of obesity, tobacco use disorder, ADHD, MACIAS, suspected sleep apnea and other medical problems listed below who presents with worsening fatigue and polyuria over the past 3 weeks and found to have new onset diabetes type II. BSG 362 on admission, no ketones in urine suggestive of DKA BSG improved to 250s in ED after IV fluids, now improved to 211 with basal/bolus insulin per glycemic pharmacy A1c 9.9 Appreciate glycemic mgmt and hospice educator for out-patient recommendations Discussed lifestyle modifications in detail with patient given other comorbidities Diabetic diet placed, lipids and repeat CMP, CBC in AM BSG AC HS (2) Transaminitis: Plan: Tbili 1.1, AST 95, ALT 216, alk phos 138 Outside records reviewed: as of Jul 2022, tbili 0.6, AST 61, ALT 106 with outpatient liver MRI revealing fatty liver with incidental IPMNs of pancreas CT abd/pelvis with nonobstructing bilateral nephrolithiasis. No ureteral calculi or hydronephrosis. Hepatic steatosis Coordinated with GI service for outpatient follow-up of LFTs. Also due for repeat liver MRI/pancreas as of Jul 2023 Repeat CMP in AM (3) ADHD: Plan: Okay to hold dexmethylphenidate while admitted (4) Obesity (BMI 30-39.9): (5) BETSY (obstructive sleep apnea): Plan: BMI 38.7. PCP has suspected sleep apnea but patient has not undergone sleep study Discussed importance of lifestyle modifications and pursuing sleep study as untreated BETSY could be contributing to insulin resistance (6) Tobacco use disorder: Plan: Nicotine patch ordered. Discussed smoking cessation DVT Ppx: Teds, early ambulation Code status: FULL PCP: Ramon Dispo: Observation Med/surg Patient seen in collaboration with Dr. Santamaria. Please see addendum. I spent a total of 70 minutes coordinating, documenting, and providing care for this patient excluding time spent in the performance of separately billed services. History of Present Illness Chief Complaint: Fatigue, polydipsia Primary Care Provider: Mateusz Navarro MD This is a 42-year-old male with PMH of obesity, tobacco use disorder, ADHD, suspected sleep apnea and other medical problems listed below who presents with worsening fatigue and polyuria over the past 3 weeks. Patient states that he has been having worsened fatigue for the past year but it has been noticeably worsened over the past 3 weeks. Also notes an overnight episode of chest pain that woke him up a few weeks ago but resolved within the hour and has not recurred. Had abdominal pain a few days ago in the right upper quadrant that was sharp but is since resolved. Had 3 episodes of diarrhea yesterday. When he woke up today, felt too tired to work and with increased urination, decided to come to ED for further evaluation. Denies any known recent illness. No fever or chills. No SOB, nausea, vomiting, dysuria or constipation. No alcohol use. Strongly suspected BETSY per primary care but patient has yet to undergo a sleep study. Smokes 0.5 to 1 pack/day cigarettes. Denies any previous diabetes diagnosis. Allergies Allergy/AdvReac Type Severity Reaction Status Date / Time shrimp Allergy Severe Swelling Verified 09/25/23 12:34 of Lip/Tongue/Throat bee venom protein (honey bee) Allergy Mild Unknown Verified 09/25/23 12:34 tramadol AdvReac Mild Nausea Verified 09/25/23 12:34 Home Medications Medication Instructions Recorded Confirmed Type dexmethylphenidate 10 mg tablet 10 mg PO QDL 06/30/19 09/25/23 History dexmethylphenidate 20 mg 20 mg PO QAM 06/30/19 09/25/23 History capsule,extended release [id number] Past Med/Surg History Medical History BETSY (obstructive sleep apnea) Obesity (BMI 30-39.9) Tobacco use disorder Renal colic on right side Ureterolithiasis ADHD Kidney stone Hematuria Surgical History History of anesthesia reaction WOKE UP DURING PREVIOUS LITHOTRIPSY - 1 YEAR AGO [facility] [place] History of wisdom tooth extraction History of lithotripsy S/P tendon repair FINGER - RT HAND Family History Other No family history of adverse response to anesthesia Social History Smoking Status: Current every day smoker Tobacco Type: Cigarettes Cigarettes Per Day: 1 pack/day; Second Hand Exposure: No; Do You Dip or Chew Tobacco: No; Tobacco Cessation Education Requested by Patient: No Hx Alcohol Use: No Hx Substance Use: No Preferred Language: Slovenian Communication Ability: Effective Marketing Communications Assistant Required: No Beliefs That Will Affect Care: None Current Living Situation: Family Other Information That Helps Us Care for You: No Feels Safe at Home: No Is there a partner from a previous relationship who is making you feel unsafe now?: No Any Concerns about Your Family Situation: No Would You Like to Speak to Someone About Your Situation: No Safety Concerns: Feels Safe At This Time Assistive Devices: None Review of Systems Review of Systems: At least ten systems reviewed and negative except as noted in the HPI. Physical Exam Physical Exam: General Appearance: WD/WN, vitals as above, NAD, sitting up in bed, pleasant, conversing easily Head: normocephalic, atraumatic Eyes: normal inspection, PERRL, conjunctivae normal, anicteric sclerae ENT: external ear and nose normal, oropharynx normal Neck: normal visual inspection, trachea midline, no thyromegaly Respiratory: normal respiratory effort, lungs clear to auscultation, no wheeze, rales, rhonchi. No accessory muscle use Cardiovascular: regular rate, rhythm, no murmur, normal peripheral pulses, no BLE edema. Vessels: no JVD Chest: normal inspection of chest Abdomen/GI: normal bowel sounds, soft, nontender, no hepatosplenomegaly Extremities/Musculoskeletal: no cyanosis or clubbing, extremities motor strength 5/5 Neurologic: PERRL, EOMI, accommodation nl, no face palsy, no dysarthria, CN's II-XI intact bilaterally and moves all extremities Psychiatric: A+Ox3, euthymic affect Skin: no rashes, normal color, warm/dry Results & Data Results & Data Vital Signs (Past 12 Hours) Vital Signs Temp Pulse Pulse Resp BP BP Pulse Ox 09/25/23 13:32 88 14 143/106 H 95 09/25/23 11:36 96 H 14 144/106 H 94 09/25/23 10:47 35.8 C L 97 H 20 153/115 H 96 O2 Del Method 09/25/23 13:32 Room Air 09/25/23 11:36 Room Air 09/25/23 10:47 Laboratory Results Short CBC 09/25/23 Range/Units 11:08 WBC 8.99 (4.8-10.8) K/ul Hgb 16.3 (14.0-18.0) g/dl Hct 45.0 (42.0-52.0) % Plt Count 307 (130-400) K/uL BMP 09/25/23 11:08 Sodium 132 L Potassium 3.8 Chloride 97 L Carbon Dioxide 25 BUN 12 Creatinine 0.99 Glucose 362 H* Calcium 9.4 Liver Function 09/25/23 Range/Units 11:08 Total Bilirubin 1.1 H (0.2-1.0) mg/dl AST 95 H (13-39) U/L ALT 216 H (7-52) U/L Alkaline Phosphatase 138 H (34-104) U/L Albumin 4.3 (3.4-5.0) gm/dl Urine 09/25/23 Range/Units 11:38 Urine Color Dark Yellow Urine Appearance Clear (Clear) Urine pH 5.0 (4.5-7.5) Ur Specific [place] 1.024 (1.000-1.030) Urine Protein 1+ H (Negative) Urine Glucose (UA) 3+ H (Negative) Diagnostic Findings Abdomen/Pelvis CT 09/25/23 11:[address] WITHOUT CONTRAST CT DOSE: 1637.8 mGy.cm HISTORY: Acute right-sided flank pain with hematuria right flank pain, hematuria TECHNIQUE: Multiaxial CT images of the abdomen and pelvis were performed without contrast. A dose lowering technique was utilized adhering to the principles of ALARA. COMPARISON STUDY: CT 07/11/2019 FINDINGS: Mild subsegmental bibasilar atelectasis. There is no free air. Unremarkable spleen, pancreas, gallbladder and adrenal glands. Hepatic steatosis with mild hepatomegaly. There are at least 3 nonobstructing calculi of the right kidney measuring up to 9 mm. Punctate nonobstructing calculus of the inferior pole left kidney. No ureteral calculi or hydronephrosis. Partial distention of the urinary bladder with mild wall thickening. Mild prostatomegaly. Atherosclerosis of the aorta without aneurysm. No lymphadenopathy. No bowel obstruction or bowel wall thickening. No ascites or mesenteric inflammation. Colonic diverticulosis. Normal appendix. No acute fracture. IMPRESSION: 1. Nonobstructing bilateral nephrolithiasis. No ureteral calculi or hydronephrosis. 2. Hepatic steatosis. 3. Normal appendix. ACT 112: Negative or not required by law. The above report was generated using voice recognition software. It may contain grammatical, syntax or spelling errors. Electronically signed by: Abelino Livingston M.D. 09/25/2023 12:27 PM ECG Additional Comments: EKG reviewed: NSR at 96 bpm, no acute ST changes Supervising Physician Co-Signing Physician Notes I have seen and examined the patient and have discussed the case with the pro vider above. I have reviewed the advanced practitioner's documentation, and I agree with, and take responsibility for that plan of care. 42-year-old male with new onset diabetes and classic symptoms related to this described above. Agree with basal bolus insulin while admitted and we discussed starting metformin on discharge. Defer to discharging physician and diabetic nurse educator on this. We did also discuss about using something like Ozempic which is a once weekly injectable and very easy but this would need to be started by his PCP or cyber operator as outpatient for close follow-up. He does have a history of sleep apnea and is compliant with CPAP. He does have high blood pressure which may be related to his underlying dexmethylphenidate use versus obstructive sleep apnea. Blood pressure should be checked in the clinic regularly with consideration for drug therapy if it continues to be above goal of 140/90. Counseling with pathophysiology of diabetes and long-term diabetic complications was given to the patient. The my physical exam reveals an obese male in no acute distress with an unremarkable physical exam. Lab work was reviewed and most concerning was an A1c of 9.9 as well as mildly elevated LFTs similar to his LFT elevations historically per outpatient record review. He does have evidence of fatty liver which may be contributing to this. Glucosuria noted in the urine as well as microscopic hematuria. This should be followed up as outpatient to ensure complete resolution with better glucose control. Agree with smoking cessation counseling as noted above. An additional 30 minutes was spent providing care and education for this patient as well as reviewing records as outpatient. DO Rosalio
[2023-09-25] MEDS ORDERED: ACETAMINOPHEN 325 MG TAB PO PRN (16:18)
[2023-09-25] MEDS ORDERED: POLYETHYLENE (MIRALAX) 17 GM PACK PO PRN (16:18)
[2023-09-25] MEDS ORDERED: ONDANSETRON INJ 2 MG/ML 2 ML VIAL IV PRN (16:18)
[2023-09-25] MEDS ORDERED: DEXTROSE 50% 50 ML SYRINGE IV PRN ×2 (16:39→16:45)
[2023-09-25] MEDS ORDERED: GLUCAGON FOR INJ 1 MG VIAL SQ PRN (16:39)
[2023-09-25] MEDS ORDERED: CARBOHYDRATES FOR HYPOGLYCEMIA PO PRN ×2 (16:39→16:45)
[2023-09-25] MEDS ORDERED: GLUCOSE 40% GEL 15 GM TUBE PO PRN ×2 (16:39→16:45)
[2023-09-25] MEDS ORDERED: GLUCOSE 10 TAB/TUBE PO PRN ×2 (16:39→16:45)
[2023-09-25] MEDS ORDERED: GLUCAGON FOR INJ 1 MG VIAL IM PRN (16:45)
[2023-09-25] MEDS: NICOTINE 14 MG/24 HR PATCH TD SCH (17:47)
[2023-09-25] MEDS: INSULIN ASPART PER UNIT CHARGE SC SCH (17:55)
[2023-09-25] MEDS ORDERED: INSULIN ASPART PER UNIT CHARGE SC SCH (18:00)
--- OUTSIDE RECORDS SUMMARY | 2023-09-25 20:29 | External Medical Summary | Summary of Care ---
Author Name Unknown Organization [facility] Address [address] [place] [facility] [address] Phone [phone] Care Team Providers Care Laboratory Associate Name Role Phone Alissa Navarro MD Primary Care Provider [phone] Reason for Visit * Reason Onset Date Comments Medication Refill 08/10/2023 Encounter Details Date Type Department Care Team (Late st Contact Info) Description 08/10/2023 Refill [facility] [address] [place] [address] Alissa Navarro MD [address] [place] [address] ADHD (attention deficit hyperactivity disorder), combined type Allergies Active Allergy Reactions Criticality Noted Date Comments Bee Venom Low 06/30/2019 Shrimp (Diagnostic) High 06/30/2019 Shellfish Edema face/lips/tongue High 04/04/2010 Wasp Venom Anaphylaxis High 04/04/2010 documented as of this encounter (statuses as of 08/12/2023) Medications Medication Sig Dispensed Refills Start Date End Date Status LORazepam 0.5 MG Oral Tablet (Ativan)Indications :Acute anxiety Take 1 Tablet by mouth 3 times a day as needed for Anxiety. 20 Tablet 0 07/25/2021 Active Dexmethylphenidate HCl ER 25 MG Oral Capsule Extended Release 24 HourIndications:ADH D (attention deficit hyperactivity disorder), combined type Take by mouth 1 Capsule in the morning. 30 Capsule 0 09/02/2021 Active Benzonatate 100 MG Oral Capsule (Tessalon Perles)Indications: Upper respiratory tract infection, unspecified type,Viral URI with cough Take 1 Capsule (100 mg) by mouth 3 times a day as needed for Cough (may make you sleepy). 15 Capsule 0 06/14/2022 Active Dexmethylphenidate HCl ER 25 MG Oral Capsule Extended Release 24 HourIndications:ADH D (attention deficit hyperactivity disorder), combined type Take 1 Capsule by mouth in the morning. 30 Capsule 0 08/12/2023 Active Dexmethylphenidate HCl 10 MG Oral Tablet (Focalin)Indication s:ADHD (attention deficit hyperactivity disorder), combined type 1 tab afternoon and one tab in evening 60 Tablet 0 08/12/2023 Active Dexmethylphenidate HCl ER 25 MG Oral Capsule Extended Release 24 HourIndications:ADH D (attention deficit hyperactivity disorder), combined type Take 1 Capsule by mouth in the morning. 30 Capsule 0 07/09/2023 4 Discontinue d(Refill) Dexmethylphenidate HCl 10 MG Oral Tablet (Focalin)Indication s:ADHD (attention deficit hyperactivity disorder), combined type 1 tab afternoon and one tab in evening 60 Tablet 0 07/09/2023 4 Discontinue d(Refill) documented as of this encounter (statuses as of 08/12/2023) Active Problems Problem Noted Date Diagnosed Date Bilateral kidney stones 07/17/2018 Obesity, Class I, BMI 30.0-34.9 (see actual BMI) 09/08/2016 Overview: bmi= 32.50 09/08/16 Attention deficit hyperactiv ity disorder (ADHD), combined type 09/08/2016 ADHD (attention deficit hype ractivity disorder), combined type 08/25/2016 Obesity, Class I, BMI 30.0-34.9 (see actual BMI) 12/14/2014 Overview: bmi= 33.91 12/14/14 HTN, goal below 140/90 12/14/2014 Tobacco use disorder 05/26/2013 Dysfunction of eustachian tube 08/29/2012 Obesity, Class I, BMI 30.0-34.9 (see actual BMI) 09/01/2011 Overview: bmi= 33.19 07/01/12 Other seborrheic keratosis 04/04/2010 Abnormal weight gain 04/04/2010 Mixed dyslipidemia 04/04/2010 Gastritis and gastroduodenitis 11/28/2007 Panic disorder 09/23/2002 OBSESSIVE-COMPULSIVE DIS 09/23/2002 documented as of this encounter (statuses as of 08/12/2023) Resolved Problems Problem Noted Date Diagnosed Date Resolved Date Elevated blood pressure, situational 04/04/2010 05/17/2015 Tobacco use disorder 11/28/2007 013 documented as of this encounter (statuses as of 08/12/2023) Immunizations Name Administration Dates Next Due Hepatitis B, 20+ yrs 03/04/2008 PPD 03/04/2008 Pneumococcal Polysaccharide PPV23 (Pneumovax) 08/29/2019 Seasonal Influenza, PF, 6 M & above, IM , (FluLaval or Fluzone) 08/04/2022,07/25/2021,09/17/2020,08/16,07/08/2018 Seasonal Influenza, Quadriva lent, No Preserve, IM 05/17/2015 TDAP (age 10 and older)(Boostrix) 10/30/2018 10/30/2028 TDAP (age 11 and older)(Adacel) 03/04/2008 documented as of this encounter Social History Tobacco Use Types Packs/Day Years Used Date Smoking Tobacco: Every Day Cigarettes 0.5 10 Smokeless Tobacco: Former Alcohol Use Standard Drinks/Week Comments Not Currently 0 (1 standard drink = 0.6 oz pur e alcohol) rare PHQ-2 Answer Date Recorded PHQ Adult Total Score 0 09/17/2020 Hunger Vital Sign Answer Date Recorded Worried About Running Out of Food in the Last Ye ar Never true 08/29/2019 Ran Out of Food in the Last Year Never true 08/29/2019 Sex and Gender Information Value Date Recorded Sex Assigned at Male 08/29/2019 8:48 AM EST Gender Identity Male 08/29/2019 8:48 AM EST Sexual Orientation Straight 08/29/2019 8: 48 AM EST Job Start Date Occupation Industry Not on file Not on file Not on file documented as of this encounter Miscellaneous Notes * Telephone Encounter - Alissa Navarro MD - 08/12/2023 9:30 AM ESTSigned Prescriptions: Disp Refills Dexmethylphenidate HCl ER 25 MG Oral Capsu*30 Cap*0 Sig: Take 1 Capsule by mouth in the morning. Authorizing Provider: ALISSA NAVARRO Dexmethylphenidate HCl 10 MG Oral Tablet (*60 Tab*0 Si tab afternoon and one tab in evening Authorizing Provider: ALISSA NAVARRO * Telephone Encounter - Niesha Luna [facility] - 08/11/2023 8:57 AM ESTPending Prescriptions: Disp Refills Dexmethylphenidate HCl ER 25 MG Oral Capsu*30 Cap*0 Sig: Take 1 Capsule by mouth in the morning. Dexmethylphenidate HCl 10 MG Oral Tablet (*60 Tab*0 Si tab afternoon and one tab in evening * Telephone Encounter - Niesha Luna [facility] - 08/11/2023 8:57 AM EST I have reviewed the patients controlled substance dispensing history in the Prescription Drug Monitoring Program in compliance with the [facility] regulations before prescribing a controlled substance. PDMP checked on 08/11/2023. Pending Prescriptions: Disp Refills Dexmethylphenidate HCl ER 25 MG Oral Caps*30 Cap*0 Sig: Take 1 Capsule by mouth in the morning. Dexmethylphenidate HCl 10 MG Oral Tablet *60 Tab*0 Si tab afternoon and one tab in evening Last Visit: 08/04/2022 (in office), 07/20/2020 (telemedicine) Next Visit: Visit date not found Date medication was last filled: 07/10/23, 07/09/23 Date medication is due for refill: 08/08/23, 08/07/23 Pharmacy: [id number] [address] [facility] Is this request for a controlled substance? Yes and Urine Drug Screen Not completed Toxicology results: No results found for this or any previous visit. Please approve if appropriate. Niesha Orozco Clinical Pharmacist [facility]) [phone] 08/11/2023, 8:57 AM documented in this encounter Plan of Treatment Health Maintenance Due Date Last Done Comments COVID-19 Vaccine (#1) 04/21/1982 Hepatitis B (2 of 3 - 19+ 3-dose series) 04/01/2008 03/04/2008 Pneumococcal Vaccine: Pediatrics (0 to 5 Years) and At-Risk Patients (6 to 64 Years) (2 - PCV) 08/29/2020 08/29/2019 Depression Screening 09/17/2021 09/17/2020 Influenza Vaccine (FLU shot) (#1) 2023 08/04/2022, 07/25/2021, 09/17/2020, Additional history exists GFR 08/04/2023 08/04/2022, 08/0 03/2021, 08/22/2019, Additional history exists Albumin/Creatinine Ratio 02/22/2024 02/21/2021 Diabetes Screening 08/04/2025 08/04/2022, 0 02/21/2021, 08/22/2019, Additional history exists Lipid Panel 08/04/2027 08/04/2022, 08/0 03/2021, 12/14/2014, Additional history exists DTaP,Tdap,and Td Vaccines (3 - Td or Tdap) 10/30/2028 10/30/2018, 03/04/2008 GARDASIL-HPV IMMUNIZATION SERIES Aged Out No longer eligible based on patient's age to complete this topic MENINGOCOCCAL (MENACTRA/MENVEO) Aged Out No longer eligible based on patient's age to complete this topic documented as of this encounter Medical Devices Not on filedocumented as of this encounter Visit Diagnoses Diagnosis ADHD (attention deficit hyperactivity disorder), combined type Attention deficit disorder with hyperactivity documented in this encounter Care Teams Laboratory Associate Relationship Specialty Start Date End Date Alissa Navarro MD [address] [facility] [place] [address] PCP - General Family Medicine 10/30/18 documented as of this encounter
--- OUTSIDE RECORDS SUMMARY | 2023-09-25 20:29 | External Medical Summary | Summary of Care ---
Author Name Unknown Organization [facility] Address [address] [facility] [place] [address] Phone [phone] Care Team Providers Care University Librarian Name Role Phone Alissa Navarro MD Primary Care Provider [phone] Reason for Visit * Reason Onset Date Comments Medication Refill 04/18/2023 Encounter Details Date Type Department Care Team Description 04/18/2023 Refill [facility] [address] [place] [address] Alissa Navarro MD [address] [place] [address] ADHD (attention deficit hyperactivity disorder), combined type Allergies Active Allergy Reactions Severity Noted Date Comments Bee Venom Low 06/30/2019 Shrimp (Diagnostic) High 06/30/2019 Shellfish Edema face/lips/tongue High 04/04/2010 Wasp Venom Anaphylaxis High 04/04/2010 documented as of this encounter (statuses as of 04/18/2023) Medications Medication Sig Dispensed Refills Start Date [...] Active Benzonatate 100 MG Oral Capsule (Tessalon Perljose)Indications: Upper respiratory tract infection, unspecified type,Viral URI with cough Take 1 Capsule (100 mg) by mouth 3 times a day as needed for Cough (may make you sleepy). 15 Capsule 0 06/14/2022 Active Dexmethylphenidate HCl ER 25 MG Oral Capsule Extended Release 24 HourIndications:ADH D (attention deficit hyperactivity disorder), combined type Take 1 Capsule by mouth in the morning. 30 Capsule 0 04/18/2023 Active Dexmethylphenidate HCl 10 MG Oral Tablet (Focalin)Indication s:ADHD (attention deficit hyperactivity disorder), combined type 1 tab afternoon and one tab in evening 60 Tablet 0 04/18/2023 Active Dexmethylphenidate HCl 10 MG Oral Tablet (Focalin)Indication s:ADHD (attention deficit hyperactivity disorder), combined type 1 tab afternoon and one tab in evening 60 Tablet 0 03/11/2023 3 Discontinue d(Refill) Dexmethylphenidate HCl ER 25 MG Oral Capsule Extended Release 24 HourIndications:ADH D (attention deficit hyperactivity disorder), combined type Take 1 Capsule by mouth in the morning. 30 Capsule 0 03/11/2023 3 Discontinue d(Refill) documented as of this encounter (statuses as of 04/18/2023) Active Problems Problem Noted Date Bilateral kidney stones 07/17/2018 Obesity, Class I, BMI 30.0-34.9 (see act ual BMI) 09/08/2016 Overview: bmi= 32.50 09/08/16 Attention deficit hyperactivity disorder (ADHD), combined type 09/08/2016 ADHD (attention deficit hyperactivity di sorder), combined type 08/25/2016 Obesity, Class I, BMI 30.0-34.9 (see act ual BMI) 12/14/2014 Overview: bmi= 33.91 12/14/14 HTN, goal below 140/90 12/14/2014 Tobacco use disorder 05/26/2013 Dysfunction of eustachian tube 3 Obesity, Class I, BMI 30.0-34.9 (see act ual BMI) 09/01/2011 Overview: bmi= 33.19 07/01/12 Other seborrheic keratosis 04/04/2010 Abnormal weight gain 04/04/2010 Mixed dyslipidemia 04/04/2010 Gastritis and gastroduodenitis 8 Panic disorder 09/23/2002 OBSESSIVE-COMPULSIVE DIS 09/23/2002 documented as of this encounter (statuses as of 04/18/2023) Resolved Problems Problem Noted Date Resolved Date Elevated blood pressure, situational 04/04/2010 05/17/2015 Tobacco use disorder 11/28/2007 08/29/2012 documented as of this encounter (statuses as of 04/18/2023) Immunizations Name Administration Dates Next Due Hepatitis B, 20+ yrs 03/04/2008 PPD 03/04/2008 Pneumococcal Polysaccharide PPV23 (Pneumovax) 08/29/2019 SEASONAL INFLUENZA, PF, 6 M & Above, IM , (FLULAVAL or FLUZONE) 08/04/2022,07/25/2021,09/17/2020,08/16,07/08/2018 Seasonal Influenza, Quadriva lent, No Preserve, [...] = 0.6 oz pur e alcohol) rare Food Insecurity Answer Date Recorded Within the past 12 months, y ou worried that your food would run out before you got money to buy more. Never true 08/29/2019 Within the past 12 months, t he food you bought just didn't last and you didn't have money to get more. Never true 08/29/2019 Sex Assigned at Date Recorded Male 08/29/2019 8:[address] Job Start Date Occupation Industry Not on file Not on file Not on file documented as of this encounter Miscellaneous Notes * Telephone Encounter - Alissa Navarro MD - 04/18/2023 6:40 PM EDTSigned Prescriptions: Disp Refills Dexmethylphenidate HCl ER 25 MG Oral Capsu*30 Cap*0 Sig: Take 1 Capsule by mouth in the morning. Authorizing Provider: ALISSA NAVARRO Dexmethylphenidate HCl 10 MG Oral Tablet (*60 Tab*0 Si tab afternoon and one tab in evening Authorizing Provider: ALISSA NAVARRO * Telephone Encounter - Abelino Lim [facility] - 04/18/2023 3:47 PM EDTPending Prescriptions: Disp Refills Dexmethylphenidate HCl ER 25 MG Oral Capsu*30 Cap*0 Sig: Take 1 Capsule by mouth in the morning. Dexmethylphenidate HCl 10 MG Oral Tablet (*60 Tab*0 Si tab afternoon and one tab in evening * Telephone Encounter - Abelino Lim [facility] - 04/18/2023 3:46 PM EDT I have reviewed the patients controlled substance dispensing history in the Prescription Drug Monitoring Program in compliance with the [facility] regulations before prescribing a controlled substance. PDMP checked on 04/18/2023. Pending Prescriptions: Disp Refills Dexmethylphenidate HCl ER 25 MG Oral Caps*30 Cap*0 Sig: Take 1 Capsule by mouth in the morning. Dexmethylphenidate HCl 10 MG Oral Tablet *60 Tab*0 Si tab afternoon and one tab in evening Last Visit: 08/04/2022 (in office), 07/20/2020 (telemedicine) Next Visit: Visit date not found Date medication was last filled: 03/11 Date medication is due for refill: 04/10 Pharmacy: [facility] [id number] [place], [place] [address] [address] [facility] Is this request for a controlled substance? Yes and Urine Drug Screen Not completed Toxicology results: No results found for this or any previous visit. Please approve if appropriate. Thanks, Silviano Lim, PharmD Clinical Pharmacist Centralized Clinical Pharmacy Services (CCPS) (Formerly Telepharmacy) [phone] 04/18/2023 3:46 PM * Telephone Encounter - Palma Haynes CPhT - 04/18/2023 3:33 PM EDT Pt is out of med, requesting high priority Rx's will also need PA's under pt's new insurance Did you pend patient's preferred pharmacy and medication before forwarding?yes Pharmacy: [facility] [id number] [place] [address] [address] [facility] Pending Prescriptions: Disp Refills Dexmethylphenidate HCl ER 25 MG Oral Caps*30 Cap*0 Sig: Take 1 Capsule by mouth in the morning. Dexmethylphenidate HCl 10 MG Oral Tablet *60 Tab*0 Si tab afternoon and one tab in evening Last Visit: 08/04/2022 (in office), 07/20/2020 (telemedicine) Next Visit: Visit date not found If no future appointments scheduled, and last appointment is greater than a year ago, please schedule patient for a follow-up appointment Last date the medication was ordered: 03/11/2023 Is this request for a controlled substance?Yes, What was the last refill date 03/11/2023 w/ [id number] and dosage 25mg and Urine Drug Screen Not completed Urine Drug Screen:No results found for this or any previous visit. Patient Phone Numbers Labs: Lab Results Component Value Date/Time CREAT 0.8 08/04/2022 03:32 PM CREAT 1.1 08/22/2019 07:40 AM POTASSIUM 4.4 08/04/2022 03:32 PM POTASSIUM 4.6 08/22/2019 07:40 AM TSH 0.66 04/04/2010 08:50 AM LDLCALC 129 02/21/2021 09:35 AM LDLCALC 120 12/14/2014 12:03 PM LDLDIRECT 140 (H) 08/04/2022 03:32 PM LDLDIRECT NOT APPLICABLE 12/14/2014 12:03 PM ALT 106 (H) 08/04/2022 03:32 PM ALT 77 (H) 08/22/2019 07:40 AM documented in this encounter Plan of [...] hyperactivity documented in this encounter Care Teams University Librarian Relationship Specialty Start Date End Date Alissa Navarro MD [address] [place] [address] PCP - General Family Medicine 10/30/18 documented as of this encounter
--- OUTSIDE RECORDS SUMMARY | 2023-09-25 20:29 | External Medical Summary | Summary of Care ---
Author Name Unknown Organization [facility] Address [address] [facility] [place] [address] Phone [phone] Care Team Providers Care Business Asst Name Role Phone Alissa Navarro MD Primary Care Provider [phone] Reason for Visit * Reason Onset Date Comments Medication Refill 07/06/2023 Encounter Details Date Type Department Care Team (Late st Contact Info) Description 07/06/2023 Refill [facility] [address] [place] [address] Alissa Navarro MD [address] [place] [address] ADHD (attention deficit hyperactivity disorder), combined type Allergies Active Allergy Reactions Criticality Noted Date Comments Bee Venom Low 06/30/2019 Shrimp (Diagnostic) High 06/30/2019 Shellfish Edema face/lips/tongue High 04/04/2010 Wasp Venom Anaphylaxis High 04/04/2010 documented as of this encounter (statuses as of 07/09/2023) Medications Medication Sig Dispensed Refills Start Date [...] in the morning. 30 Capsule 0 07/09/2023 Active Dexmethylphenidate HCl 10 MG Oral Tablet (Focalin)Indication s:ADHD (attention deficit hyperactivity disorder), combined type 1 tab afternoon and one tab in evening 60 Tablet 0 07/09/2023 Active Dexmethylphenidate HCl ER 25 MG Oral Capsule Extended Release 24 HourIndications:ADH D (attention deficit hyperactivity disorder), combined type Take 1 Capsule by mouth in the morning. 30 Capsule 0 05/25/2023 3 Discontinue d(Refill) Dexmethylphenidate HCl 10 MG Oral Tablet (Focalin)Indication s:ADHD (attention deficit hyperactivity disorder), combined type 1 tab afternoon and one tab in evening 60 Tablet 0 05/25/2023 3 Discontinue d(Refill) documented as of this encounter (statuses as of 07/09/2023) Active Problems Problem Noted Date Diagnosed Date [...] as of this encounter (statuses as of 07/09/2023) Resolved Problems Problem Noted Date Diagnosed Date Resolved Date Elevated blood pressure, situational 04/04/2010 05/17/2015 Tobacco use disorder 11/28/2007 013 documented as of this encounter (statuses as of 07/09/2023) Immunizations Name Administration Dates Next Due Hepatitis [...] Telephone Encounter - Alissa Navarro MD - 07/09/2023 9:15 AM ESTSigned Prescriptions: Disp Refills Dexmethylphenidate HCl ER 25 MG Oral Capsu*30 Cap*0 Sig: Take 1 Capsule by mouth in the morning. Authorizing Provider: ALISSA NAVARRO Dexmethylphenidate HCl 10 MG Oral Tablet (*60 Tab*0 Si tab afternoon and one tab in evening Authorizing Provider: ALISSA NAVARRO * Telephone Encounter - Cary Gallegos [facility] - 07/07/2023 10:22 PM EST Pending Prescriptions: Disp Refills Dexmethylphenidate HCl ER 25 MG Oral Capsu*30 Cap*0 Sig: Take 1 Capsule by mouth in the morning. Dexmethylphenidate HCl 10 MG Oral Tablet (*60 Tab*0 Si tab afternoon and one tab in evening * Telephone Encounter - Cary Gallegos [facility] - 07/07/2023 10:21 PM EST I have reviewed the patients controlled substance dispensing history in the Prescription Drug Monitoring Program in compliance with the [facility] regulations before prescribing a controlled substance. PDMP checked on 07/07/2023. Pending Prescriptions: Disp Refills Dexmethylphenidate HCl ER 25 MG Oral Caps*30 Cap*0 Sig: Take 1 Capsule by mouth in the morning. Dexmethylphenidate HCl 10 MG Oral Tablet *60 Tab*0 Si tab afternoon and one tab in evening Last Visit: 08/04/2022 (in office), 07/20/2020 (telemedicine) Next Visit: Visit date not found Date medication was last filled: 05/27/23 Date medication is due for refill: 06/24/23 Pharmacy: [id number] [address] [facility] Is this request for a controlled substance? Yes and Urine Drug Screen Not completed Toxicology results: No results found for this or any previous visit. Please approve if appropriate. Ernesto, Cary Gallegos [facility] Clinical Pharmacist Centralized Clinical Pharmacy Services (CCPS) (Formerly Telepharmacy) [phone] documented in this encounter Plan of Treatment [...] hyperactivity documented in this encounter Care Teams Business Asst Relationship Specialty Start Date End Date Alissa Navarro MD [address] [place] [address] PCP - General Family Medicine 10/30/18 documented as of this encounter
--- OUTSIDE RECORDS SUMMARY | 2023-09-25 20:29 | External Medical Summary | Summary of Care ---
Author Name Unknown Organization [facility] Address [address] [facility] [place] [address] Phone [phone] Care Team Providers Care Home Health Rn Name Role Phone Alissa Navarro MD Primary Care Provider [phone] Reason for Visit * Reason Onset Date Comments Medication Refill 09/15/2023 Encounter Details Date Type Department Care Team (Late st Contact Info) Description 09/15/2023 Refill [facility] [address] [place] [address] Alissa Navarro MD [address] [place] [address] ADHD (attention deficit hyperactivity disorder), combined type Allergies Active Allergy Reactions Criticality Noted Date Comments Bee Venom Low 06/30/2019 Shrimp (Diagnostic) High 06/30/2019 Shellfish Edema face/lips/tongue High 04/04/2010 Wasp Venom Anaphylaxis High 04/04/2010 documented as of this encounter (statuses as of 09/19/2023) Medications Medication Sig Dispensed Refills Start Date [...] mouth in the morning. 30 Capsule 0 09/19/2023 Active Dexmethylphenidate HCl 10 MG Oral Tablet (Focalin)Indication s:ADHD (attention deficit hyperactivity disorder), combined type 1 tab afternoon and one tab in evening 60 Tablet 0 09/19/2023 Active Dexmethylphenidate HCl ER 25 MG Oral Capsule Extended Release 24 HourIndications:ADH D (attention deficit hyperactivity disorder), combined type Take 1 Capsule by mouth in the morning. 30 Capsule 0 08/12/2023 4 Discontinue d(Refill) Dexmethylphenidate HCl 10 MG Oral Tablet (Focalin)Indication s:ADHD (attention deficit hyperactivity disorder), combined type 1 tab afternoon and one tab in evening 60 Tablet 0 08/12/2023 4 Discontinue d(Refill) documented as of this encounter (statuses as of 09/19/2023) Active Problems Problem Noted Date Diagnosed Date [...] as of this encounter (statuses as of 09/19/2023) Resolved Problems Problem Noted Date Diagnosed Date Resolved Date Elevated blood pressure, situational 04/04/2010 05/17/2015 Tobacco use disorder 11/28/2007 013 documented as of this encounter (statuses as of 09/19/2023) Immunizations Name Administration Dates Next Due Hepatitis [...] Telephone Encounter - Alissa Navarro MD - 09/19/2023 7:29 AM ESTSigned Prescriptions: Disp Refills Dexmethylphenidate HCl ER 25 MG Oral Capsu*30 Cap*0 Sig: Take 1 Capsule by mouth in the morning. Authorizing Provider: ALISSA NAVARRO Dexmethylphenidate HCl 10 MG Oral Tablet (*60 Tab*0 Si tab afternoon and one tab in evening Authorizing Provider: ALISSA NAVARRO * Telephone Encounter - Emma Rojas glass inspector - 09/18/2023 4:44 PM EST Pt called in, advised of needed appointment and transferred to scheduling. Thank you, Emma Rojas [facility] Software Configuration Analyst II Centralized Clin[facility] Pharmacy Services (CCPS) (formerly Telepharmacy) 09/18/2023,4:44 PM * Telephone Encounter - Alok Dunbar [facility] - 09/17/2023 11:53 AM EST Pending Prescriptions: Disp Refills Dexmethylphenidate HCl ER 25 MG Oral Capsu*30 Cap*0 Sig: Take 1 Capsule by mouth in the morning. Dexmethylphenidate HCl 10 MG Oral Tablet (*60 Tab*0 Si tab afternoon and one tab in evening * Telephone Encounter - Alok Dunbar [facility] - 09/17/2023 11:51 AM EST Please contact patient so that an appointment can be scheduled with his PRIMARY CARE provider before this refill can be authorized. After contacting patient, please forward request to Alissa Navarro MD. Last Visit: 08/04/2022 (in office), 07/20/2020 (telemedicine) Next Visit: Visit date not found Thank You, Alok Dunbar, Pharm-D Clinical Pharmacist Centralized Clinical Pharmacy Services (CCPS) (Formerly Telepharmacy) [phone] 09/17/2023, 11:51 AM I have reviewed the patients controlled substance dispensing history in the Prescription Drug Monitoring Program in compliance with the [facility] regulations before prescribing a controlled substance. PDMP checked on 09/17/2023. Pending Prescriptions: Disp Refills Dexmethylphenidate HCl ER 25 MG Oral Caps*30 Cap*0 Sig: Take 1 Capsule by mouth in the morning. Dexmethylphenidate HCl 10 MG Oral Tablet *60 Tab*0 Si tab afternoon and one tab in evening Last Visit: 08/04/2022 (in office), 07/20/2020 (telemedicine) Next Visit: Visit date not found Date medication was last filled: 08/13/2023, 08/12/2023 Date medication is due for refill: 09/11/2023, 09/10/2023 Pharmacy: [id number] [address] [facility] Is this request for a controlled substance? Yes and Urine Drug Screen was completed Toxicology results: No results found for this or any previous visit. Please approve if appropriate. Thank You, Alok Dunbar, Pharm-D Clinical Pharmacist Centralized Clinical Pharmacy Services (CCPS) (Formerly Telepharmacy) [phone] 09/17/2023, 11:52 AM documented in this encounter Plan of Treatment Upcoming Encounters Date Type Department Care Team (Late st Contact Info) Description 09/25/2023 7:40 AM EDT Office Visit [facility] [address] [place] [id number] Sharon Page MD [address] [place] [address] Health Maintenance Due Date Last Done Comments Hepatitis B (2 of 3 - 19+ 3-dose series) 04/01/2008 03/04/2008 Pneumococcal Vaccine: Pediatrics (0 to 5 Years) and At-Risk Patients (6 to 64 Years) (2 of 2 - PCV) 08/29/2020 08/29/2019 Depression Screening 09/17/2021 09/17/2020 COVID-19 Vaccine (1 - 2022-24 season) 2023 Influenza Vaccine (FLU shot) (#1) 2023 08/04/2022, [...] hyperactivity documented in this encounter Care Teams Home Health Rn Relationship Specialty Start Date End Date Alissa Navarro MD [address] [place] [address] PCP - General Family Medicine 10/30/18 documented as of this encounter
--- OUTSIDE RECORDS SUMMARY | 2023-09-25 20:29 | External Medical Summary | Summary of Care ---
Author Name Unknown Organization [facility] Address [address] [facility] [place] [address] Phone [phone] Care Team Providers Care Mold Yard Supervisor Name Role Phone Alissa Navarro MD Primary Care Provider [phone] Reason for Visit * Reason Onset Date Comments Medication Refill 05/24/2023 Encounter Details Date Type Department Care Team (Late st Contact Info) Description 05/24/2023 Refill [facility] [address] [place] [address] Alissa Navarro MD [address] [place] [address] ADHD (attention deficit hyperactivity disorder), combined type Allergies Active Allergy Reactions Criticality Noted Date Comments Bee Venom Low 06/30/2019 Shrimp (Diagnostic) High 06/30/2019 Shellfish Edema face/lips/tongue High 04/04/2010 Wasp Venom Anaphylaxis High 04/04/2010 documented as of this encounter (statuses as of 05/25/2023) Medications Medication Sig Dispensed Refills Start Date [...] in the morning. 30 Capsule 0 05/25/2023 Active Dexmethylphenidate HCl 10 MG Oral Tablet (Focalin)Indication s:ADHD (attention deficit hyperactivity disorder), combined type 1 tab afternoon and one tab in evening 60 Tablet 0 05/25/2023 Active Dexmethylphenidate HCl ER 25 MG Oral Capsule Extended Release 24 HourIndications:ADH D (attention deficit hyperactivity disorder), combined type Take 1 Capsule by mouth in the morning. 30 Capsule 0 04/18/2023 3 Discontinue d(Refill) Dexmethylphenidate HCl 10 MG Oral Tablet (Focalin)Indication s:ADHD (attention deficit hyperactivity disorder), combined type 1 tab afternoon and one tab in evening 60 Tablet 0 04/18/2023 3 Discontinue d(Refill) documented as of this encounter (statuses as of 05/25/2023) Active Problems Problem Noted Date Diagnosed Date [...] as of this encounter (statuses as of 05/25/2023) Resolved Problems Problem Noted Date Diagnosed Date Resolved Date Elevated blood pressure, situational 04/04/2010 05/17/2015 Tobacco use disorder 11/28/2007 013 documented as of this encounter (statuses as of 05/25/2023) Immunizations Name Administration Dates Next Due Hepatitis [...] Telephone Encounter - Alissa Navarro MD - 05/25/2023 5:03 PM ESTSigned Prescriptions: Disp Refills Dexmethylphenidate HCl ER 25 MG Oral Capsu*30 Cap*0 Sig: Take 1 Capsule by mouth in the morning. Authorizing Provider: ALISSA NAVARRO Dexmethylphenidate HCl 10 MG Oral Tablet (*60 Tab*0 Si tab afternoon and one tab in evening Authorizing Provider: ALISSA NAVARRO * Telephone Encounter - Miguel Angel Fleming, [facility] - 05/25/2023 10:38 AM EST Pending Prescriptions: Disp Refills Dexmethylphenidate HCl ER 25 MG Oral Capsu*30 Cap*0 Sig: Take 1 Capsule by mouth in the morning. Dexmethylphenidate HCl 10 MG Oral Tablet (*60 Tab*0 Si tab afternoon and one tab in evening * [facility] - [facility] 10:35 AM EST I have reviewed the patients controlled substance dispensing history in the Prescription Drug Monitoring Program in compliance with the [facility] regulations before prescribing a controlled substance. PDMP checked on 05/25/2023. Pending Prescriptions: Disp Refills Dexmethylphenidate HCl ER 25 MG Oral Caps*30 Cap*0 Sig: Take 1 Capsule by mouth in the morning. Dexmethylphenidate HCl 10 MG Oral Tablet *60 Tab*0 Si tab afternoon and one tab in evening Last Visit: 08/04/2022 (in office), 07/20/2020 (telemedicine) Next Visit: Visit date not found Date medication was last filled: 04/26/2023 (tab) 04/18/2023 (cap) Date medication is due for refill: 05/25/2023 (10mg tab) 05/17/2023 (cap) Pharmacy: [id number] [address] [facility] Is this request for a controlled substance? Yes and Urine Drug Screen Not completed Toxicology results: No results found for this or any previous visit. Please approve if appropriate. Thank you, Miguel Angel Fleming, PharmD Clinical Pharmacist Centralized Clinical Pharmacy Services (CCPS) (Formerly Telepharmacy) [phone] 05/25/2023, 10:35 AM documented in this encounter Plan of [...] hyperactivity documented in this encounter Care Teams Mold Yard Supervisor Relationship Specialty Start Date End Date Alissa Navarro MD [address] [place] [address] PCP - General Family Medicine 10/30/18 documented as of this encounter
[2023-09-25] MEDS: LANTUS PER UNIT CHARGE SC SCH (21:48)
[2023-09-25] MEDS: hydrOXYzine HCl 25 MG TAB PO STA (23:10)
--- NOTE | 2023-09-26 06:01 | Electrocardiogram Report ---
Test Reason : Blood Pressure : / mmHG Vent. Rate : 096 BPM Atrial Rate : 096 BPM P-R Int : 150 ms QRS Dur : 088 ms QT Int : 336 ms P-R-T Axes : 048 037 051 degrees QTc Int : 424 ms Normal sinus rhythm Low voltage QRS Borderline ECG When compared with ECG of 09-MAR-2022 14:16, No significant change was found Confirmed by Galo Goldman ([id number]) on 09/26/2023 6:01:31 AM Referred By: REFERRED SELF Confirmed By:Galo Goldman
[2023-09-26 08:46] LABS: Hematocrit (blood only) 45.1 % (42.0-52.0); Hemoglobin 16.2 g/dl (14.0-18.0); Mean Corpuscular Hemoglobin 31.5 pg (25.0-34.0); Mean Corpuscular Hgb Conc 35.9 g/dL (32.0-36.0); Mean Corpuscular Volume 87.7 fL (80.0-100.0); Mean Platelet Volume 10.1 fL (9.4-12.4); Platelet Count 327 K/uL (130-400); RDW Coefficient of Variation 11.9 % (11.5-14.5); RDW Standard Deviation 37.8 fL (36.4-46.3); Red Blood Count 5.14 M/uL (4.70-6.10); White Blood Count 10.07 K/ul (4.8-10.8)
[2023-09-26] MEDS ORDERED: DEXMETHYLPHENIDATE PO SCH ×2 (09:00→11:30)
[2023-09-26 09:02] LABS: Alanine Aminotransferase 206 U/L (7-52); Albumin Globulin Ratio 1.4 (0.9-2); Albumin Level 4.2 gm/dl (3.4-5.0); Alkaline Phosphatase 119 U/L (34-104); Anion Gap 8 (3-11); BUN Creatinine Ratio 12.5 (10-20); Bilirubin,Total 1.1 mg/dl (0.2-1.0); Blood Urea Nitrogen 11 mg/dl (6-23); Calcium 9.2 mg/dl (8.6-10.3); Carbon Dioxide 26 mmol/L (21-32); Chloride 102 mmol/L (98-107); Chol HDL Ratio 8.1 (0-5); Cholesterol 220 mg/dl (0-200); Creatinine Clr Calc Pharmacy 149.3 ml/min; Est GFR (African American) 123.7 ml/min; Est GFR (Non-African American) 106.7 ml/min; Glucose 190 mg/dl (70-99(Fasting)); HDL Cholesterol 27 mg/dl; Sodium 136 mmol/L (136-145); Total Protein 7.2 gm/dl (6.0-8.3); Triglycerides 441 mg/dl (0-150)
[2023-09-26] MEDS: LANTUS PER UNIT CHARGE SC SCH (09:48)
[2023-09-26 09:53] LABS: Potassium 3.8 mmol/L (3.5-5.1)
[2023-09-26] MEDS: ROSUVASTATIN CALCIUM 10 MG TAB PO SCH (11:27)
[2023-09-26] MEDS: LANTUS PER UNIT CHARGE SC ONE (12:16)
--- NOTE | 2023-09-26 14:50 | Pharmacy Report ---
Pharmacy Glycemic Short Note 2 - Date of Service September 26, 2023 - Glycemic Short BSG Results (Last 24 hours): 09/25/23 09/25/23 09/26/23 16:42 20:48 07:36 Glucose POC Glucose 211 H 209 H 176 H 09/26/23 09/26/23 08:10 11:35 Glucose 190 H POC Glucose 284 H OUTPATIENT ANTIDIABETIC REGIMEN: * new onset diabetes mellitus * HbA1c 9.9% (09/25/23) ASSESSMENT: * Jamri is a 42 YOM admitted with urinary symptoms and fatigue consequently diagnosed new onset T2DM with no evidence of DKA. Pharmacy has been consulted to assist with glycemic management while inpatient. * BSG on admission 355, Novolog started at a weight based stress of 1.5, BSG trended down into 200s, but still elevated. Lantus intiated at bedtime at a weight based stress of 1. * This AM Fasting BSG above goal range at, will increase basal insulin scale to about a weight based stress of 2 max based on BSG. * Lunchtime BSG elevated to 284 at 176, will tighten carbohydrate ratio to a weight based stress of 3. PLAN FOR INPATIENT GLYCEMIC CONTROL: * Hold outpatient oral diabetes medications * Basal insulin * Lantus 0-20 units SQ BID (see eMAR for additional details) * Bolus insulin * NovoLog per scale ACHS or Q6hrs while NPO * Goal Range: Low 110 mg/dL - High 140 mg/dL * Correction Factor: 25 mg/dL/unit * Nutritional / Prandial insulin per carb ratio of 1 unit per 6 grams CHO consumed
--- NOTE | 2023-09-26 16:13 | Discharge Summary ---
Discharge Summary Date of Service September 26, 2023 Notes For Next Care Provider Pt dx with new onset T2DM, A1C 9.9. Started on Metformin XR 500mg twice daily. Will need uptitrated after 1 week if tolerating. Recommend initiating lipid-lowering medication as well as treatment for high triglycerides. Given his elevated LFTs this was not initiated in the hospital and we deferred to outpatient provider for close follow-up and monitoring of LFTs. Recommend repeat a1c, lipid panel in 3 months. Pt is requesting referral to [facility], TRACY Macias. Pt is reporting symptoms of sleep apnea. I would recommend referral to sleep medicine. Medication Changes From Visit Metformin XR 500 mg take twice daily with meals, next dose due on evening of 09/26/2023 for type 2 diabetes Recommend starting bsci-sve-nvoghhq fish oil supplement 1 capsule daily for high triglycerides Admission HPI Per Admitting Provider This is a 42-year-old male with PMH of obesity, tobacco use disorder, ADHD, suspected sleep apnea and other medical problems listed below who presents with worsening fatigue and polyuria over the past 3 weeks. Patient states that he has been having worsened fatigue for the past year but it has been noticeably worsened over the past 3 weeks. Also notes an overnight episode of chest pain that woke him up a few weeks ago but resolved within the hour and has not recurred. Had abdominal pain a few days ago in the right upper quadrant that was sharp but is since resolved. Had 3 episodes of diarrhea yesterday. When he woke up today, felt too tired to work and with increased urination, decided to come to ED for further evaluation. Denies any known recent illness. No fever or chills. No SOB, nausea, vomiting, dysuria or constipation. No alcohol use. Strongly suspected BETSY per primary care but patient has yet to undergo a sleep study. Smokes 0.5 to 1 pack/day cigarettes. Denies any previous diabetes diagnosis. Admission Exam Per Admitting Provider General Appearance: WD/WN, vitals as above, NAD, sitting up in bed, pleasant, conversing easily Head: normocephalic, atraumatic Eyes: normal inspection, PERRL, conjunctivae normal, anicteric sclerae ENT: external ear and nose normal, oropharynx normal Neck: normal visual inspection, trachea midline, no thyromegaly Respiratory: normal respiratory effort, lungs clear to auscultation, no wheeze, rales, rhonchi. No accessory muscle use Cardiovascular: regular rate, rhythm, no murmur, normal peripheral pulses, no BLE edema. Vessels: no JVD Chest: normal inspection of chest Abdomen/GI: normal bowel sounds, soft, nontender, no hepatosplenomegaly Extremities/Musculoskeletal: no cyanosis or clubbing, extremities motor strength 5/5 Neurologic: PERRL, EOMI, accommodation nl, no face palsy, no dysarthria, CN's II-XI intact bilaterally and moves all extremities Psychiatric: A+Ox3, euthymic affect Skin: no rashes, normal color, warm/dry Principal Dx & Hospital Course #1 = Principal Diagnosis (1) Diabetes mellitus, new onset: This is a 42-year-old male with PMH of obesity, tobacco use disorder, ADHD, MACIAS, suspected sleep apnea and other medical problems listed below who presents with worsening fatigue and polyuria over the past 3 weeks and found to have new onset diabetes type II. BSG 362 on admission, no ketones in urine suggestive of DKA BSG improved to 250s in ED after IV fluids, now improved to 211 with basal/bolus insulin per glycemic pharmacy A1c 9.9 Appreciate glycemic mgmt and clinical nurse educator for out-patient recommendations Discussed lifestyle modifications in detail with patient given other comorbidities Metformin XR 500 mg twice daily with meals has been initiated breastfeeding educator met with patient -he has significant ability to make dietary improvements, drinks 6-12 ounce sodas daily He was educated on how to properly check his blood sugar. He will be sent with test trips and Lantus and is encouraged to check blood sugar twice daily and keep a log. He is educated that he will be started on metformin 500 mg twice daily with the expectation that he will eventually titrated to metformin 1000 mg twice daily. He was educated on side effects of metformin. He is requesting referral to TRACY Macias with [facility] endo. PCP can arrange this. (2) Transaminitis: Tbili 1.1, AST 95, ALT 216, alk phos 138 Outside records reviewed: as of Jul 2022, tbili 0.6, AST 61, ALT 106 with outpatient liver MRI revealing fatty liver with incidental IPMNs of pancreas CT abd/pelvis with nonobstructing bilateral nephrolithiasis. No ureteral calculi or hydronephrosis. Hepatic steatosis Coordinated with GI service for outpatient follow-up of LFTs. Also due for repeat liver MRI/pancreas as of Jul 2023 Pt educated to abstain from alcohol and tylenol products Given elevated LFTs statin was not started at discharge, will defer to primary care provider (3) ADHD: Okay to hold dexmethylphenidate while admitted (4) HLD (hyperlipidemia): Triglyceride 441, total cholesterol 220, HDL 27, LDL not performed due to significantly elevated triglycerides Would recommend lipid-lowering medication and treatment for hypertriglyceridemia but under very close monitoring in setting of elevated LFTs (5) Obesity (BMI 30-39.9): (6) BETSY (obstructive sleep apnea): BMI 38.7. PCP has suspected sleep apnea but patient has not undergone sleep study Discussed importance of lifestyle modifications and pursuing sleep study as untreated BETSY could be contributing to insulin resistance He is agreeable to referral to sleep medicine as outpatient, PCP will need to refer (7) Tobacco use disorder: Nicotine patch ordered. Discussed smoking cessation DVT Ppx: Teds, early ambulation Code status: FULL PCP: Ramon Dispo: Observation Med/surg Patient seen in collaboration with Dr. Guillen. Please see addendum. I spent a total of 60 minutes coordinating, documenting, and providing care for this patient excluding time spent in the performance of separately billed services. Discharge Exam Gen: WD/WN, NAD, A&O x3 HEENT: Normocephalic, atraumatic, conjunctivae moist, sclerae anicteric, mucous membranes moist. Lung: Clear to Auscultation bilaterally, no wheezes/rales/rhonchi Heart: Regular rate, regular rhythm, no murmurs, rubs, or gallops Abdomen: Soft, NT, ND +BS x 4 Extremities: No edema Skin: Warm, no rash, negative turgor. Updated Medication List Medication Instructions Recorded Confirmed Type dexmethylphenidate 10 mg tablet 10 mg PO QDL 06/30/19 09/25/23 History dexmethylphenidate 20 mg 20 mg PO QAM 06/30/19 09/25/23 History capsule,extended release [id number] blood sugar diagnostic (OneTouch #50 ea 09/26/23 Rx Verio test strips) lancets 33 gauge #100 ea 09/26/23 Rx metformin 500 mg tablet,extended 500 mg PO BID #60 tabs 09/26/23 Rx release 24 hr Hospital Stay Data Consultations 09/25/23 13:54 ED Decision to Admit Stat 09/25/23 15:15 ED Decision to Admit Stat Diagnostic Imagining Performed 09/25/23 11:46 CT Abd and Pelvis [CT abd pelvis wo con] Stat Pending Results Patient Have Any Pending Studies at Discharge: No Discharge Instructions Given to Patient (Per Discharging Provider) MEDICATION CHANGES: Metformin XR 500 mg take twice daily with meals, next dose due on evening of 09/26/2023 for type 2 diabetes Recommend starting eqfi-und-saoccyg fish oil supplement 1 capsule daily for high triglycerides SUMMARY OF TEST RESULTS: You were admitted to hospital secondary to a new diagnosis of type 2 diabetes and high blood sugar. Your blood sugar on admission was 362. Your A1c was found to be 9.9. You were also found to have high triglycerides and high cholesterol. PENDING TEST RESULTS: None RECOMMENDATIONS FOR FOLLOW-UP: Please follow-up with your primary care provider as scheduled. Please take all medications as prescribed. You were educated on diet and exercise. It is important to monitor your blood sugar first thing in the morning before you have had anything to eat or drink. Please check your blood sugar again every evening. Keep a log of your blood sugar and the time you take them. Take the Blood Sugar log along with you to your follow-up appointment with primary care provider. You will likely need further diabetic medication adjustments. Do not drink Soda. You may have zero sugar or diet soda. Recommend staying well hydrated with Water. You met with a development educator while in patient. You will need to talk to your primary care provider about referral to sleep medicine for evaluation for sleep apnea. You will need to talk to to your primary care provider about referral to TRAC[facility] Macias for diabetic management. I would also discuss with your primary care provider about starting a medication to lower your cholesterol and triglycerides. Given the fact that you have elevated liver enzymes this needs to be monitored closely and so I will defer that to Dr. Navarro. Please follow up with Gastroenterology regarding your elevated liver functions. OTHER INSTRUCTIONS: Seek medical attention if you have: * temperature above 101 * chest pain or trouble breathing * abdominal pain, nausea, vomiting * diarrhea, dark stools or bloody stools * any unanswered questions or concerns Call 911 if symptoms are severe. Please take good care of yourself. It has been a pleasure taking care of you. Please take care of yourself. If you have any questions regarding your recent hospitalization please contact [facility] and request Eufemia Joya @ [phone]. Total Time Total Time Spent Total Time Spent (In Minutes): 45 minutes Supervising Physician Co-Signing Physician Notes Pt seen and examined by me, care coordinated w/ B. VIKASH Bowen, pls refer to her note above for further detail. I take responsibility for the plan noted. This is a 42-year-old male with hx of obesity, tobacco use disorder, ADHD, MACIAS, suspected sleep apnea who presented with worsening fatigue and polyuria over the past 3 weeks and found to have new onset diabetes type II. Currently pt is feeling well, sitting up in chair in NAD. He is alert oriented answering appropriately. Denies any chest pain shortness of breath abdominal pain, lungs are clear to auscultation, heart sounds regular, abdomen is soft and nontender. Patient was seen by development educator and will be discharged on metformin. He will follow up with PCP and endocrinology after discharge. MD Wilmer
[2023-09-26] MEDS: metFORMIN HCL 500 MG TAB PO SCH (17:29)
--- OUTSIDE RECORDS SUMMARY | 2023-09-27 10:49 | External Medical Summary | Summary of Care ---
Author Name Unknown Organization [facility] [address] [address] Phone [phone] Care Team Providers Care Tape Cutting Machine Operator Name Role Phone Mateusz Navarro MD Primary Care Provider [phone] Reason for Visit * Reason Onset Date Comments Appointment 09/25/2023 Encounter Details Date Type Department Care Team (Late st Contact Info) Description 09/25/2023 Telephone Gastroenterology, [facility] [address] [place] [id number] Megan Potts CRNP [address] [place] [id number] Appointment Allergies Active Allergy Reactions Criticality Noted Date Comments Bee Venom Low 06/30/2019 Shrimp (Diagnostic) High 06/30/2019 Shellfish Edema face/lips/tongue High 04/04/2010 Wasp Venom Anaphylaxis High 04/04/2010 documented as of this encounter (statuses as of 09/25/2023) Medications Medication Sig Dispensed Refills Start Date End Date Status LORazepam 0.5 MG Oral Tablet (Ativan)Indications:A cute anxiety Take 1 Tablet by mouth 3 times a day as needed for Anxiety. 20 Tablet 0 07/25/2021 Active Dexmethylphenidate HCl ER 25 MG Oral Capsule Extended Release 24 HourIndications:ADHD (attention deficit hyperactivity disorder), combined type Take by mouth 1 Capsule in the morning. 30 Capsule 0 09/02/2021 Active Benzonatate 100 MG Oral Capsule (Tessalon Perles)Indications:Up per respiratory tract infection, unspecified type,Viral URI with cough Take 1 Capsule (100 mg) by mouth 3 times a day as needed for Cough (may make you sleepy). 15 Capsule 0 06/14/2022 Active Dexmethylphenidate HCl ER 25 MG Oral Capsule Extended Release 24 HourIndications:ADHD (attention deficit hyperactivity disorder), combined type Take 1 Capsule by mouth in the morning. 30 Capsule 0 09/19/2023 Active Dexmethylphenidate HCl 10 MG Oral Tablet (Focalin)Indications: ADHD (attention deficit hyperactivity disorder), combined type 1 tab afternoon and one tab in evening 60 Tablet 0 09/19/2023 Active documented as of this encounter (statuses as of 09/25/2023) Active Problems Problem Noted Date Diagnosed Date [...] as of this encounter (statuses as of 09/25/2023) Resolved Problems Problem Noted Date Diagnosed Date Resolved Date Elevated blood pressure, situational 04/04/2010 05/17/2015 Tobacco use disorder 11/28/2007 013 documented as of this encounter (statuses as of 09/25/2023) Immunizations Name Administration Dates Next Due Hepatitis [...] encounter Miscellaneous Notes * Telephone Encounter - Lexi Linda OSA - 09/25/2023 2:55 PM EDT Per Megan, pt in ED at [place]. Pt to have appt with either a guy conrad or Dr. Acosta for elevated LFT's. Spoke to pt, states he will call back to schedule. documented in this encounter Plan of Treatment [...] Not on filedocumented as of this encounter Care Teams Tape Cutting Machine Operator Relationship Specialty Start Date End Date Mateusz Navarro MD [address] [place] [address] PCP - General Family Medicine 10/30/18 documented as of this encounter
== END 2023-09-26 17:45 | disposition home or self-care (01) ==
LOC: ED 10:35 → 3N 10:35 → SUATTDRO 15:00 → 3N 16:10

== ENCOUNTER 2025-03-28 21:03 | Inpatient (IN) ==
--- NOTE | 2025-03-28 21:19 | Emergency Department Note ---
ED Provider Note History of Present Illness Chief Complaint: Kidney Stone Stated Complaint: KIDNEY STONE Time Seen by Provider: 03/28/25 21:09 Source: patient Mode of arrival: ambulatory Limitations: no limitations Patient is a 44-year-old male who presents to the emergency department with complaints of severe right flank pain. Patient states that he recently had lithotripsy for a kidney stone on the right side and has a significant history of stones in the past. Patient states that this pain feels similar. Patient notes that he is having some intermittent nausea and vomiting as well. Patient notes that his pain today is in his right flank and has been experiencing it for just couple hours prior to arrival in the emergency department. Patient denies any urinary symptoms but does state that he has blood in his urine. Home Medications Medication Instructions Recorded Confirmed Type aspirin 81 mg tablet,delayed 81 mg PO DAILY 12/21/23 03/28/25 History release (Adult Low Dose Aspirin) omega 2-sae-yvt-fish oil 1,000 mg 1 cap PO BID 12/21/23 03/28/25 History (120 mg-180 mg) capsule (Fish Oil) blood sugar diagnostic (OneTouch #100 ea 01/19/25 02/18/25 Rx Verio test strips) lancets 33 gauge #100 ea 01/19/25 02/18/25 Rx rosuvastatin 10 mg tablet 10 mg PO DAILY #90 tabs 01/19/25 03/28/25 Rx famotidine 20 mg tablet 20 mg PO BID 01/22/25 03/28/25 History ondansetron 4 mg disintegrating 4 mg PO Q6H PRN nausea and 01/22/25 03/28/25 Rx tablet vomiting #12 tabs tamsulosin 0.4 mg capsule 0.4 mg PO QAM 01/22/25 03/28/25 History tirzepatide 10 mg/0.5 mL 10 mg subcut WK 03/28/25 03/28/25 History subcutaneous pen injector Allergies Allergy/AdvReac Type Severity Reaction Status Date / Time bee venom protein (honey bee) Allergy Severe Tongue Verified 03/28/25 22:36 swelling/Hives - Only by Blue Wasp shrimp Allergy Severe Swelling Verified 03/28/25 22:36 of Lip/Tongue/Throat/HIVES tramadol Allergy Intermediate face felt Verified 03/28/25 22:36 tight, itchy Past Med/Surg History Problem List Kidney stones (Acute) Hydronephrosis (Acute) Renal colic on right side Biliary colic Nonalcoholic fatty liver disease High triglycerides HLD (hyperlipidemia) T2DM (type 2 diabetes mellitus) Transaminitis BETSY (obstructive sleep apnea) Obesity (BMI 30-39.9) Tobacco use disorder Diabetes mellitus, new onset (Acute) Stone in renal pelvis Current smoker DVT prophylaxis Constipation Intractable pain Acute kidney injury DVT (deep venous thrombosis) ADHD Intractable pain (Acute) Renal colic (Acute) S/P tendon repair FINGER - RT HAND Medical History ADHD Kidney stone Surgical History History of anesthesia reaction WOKE UP DURING PREVIOUS LITHOTRIPSY - 1 YEAR AGO [facility] History of wisdom tooth extraction History of lithotripsy Family History Other No family history of adverse response to anesthesia Social History Smoking Status: Former smoker Tobacco Type: Cigarettes Cigarettes Per Day: 1 pack/day; Second Hand Exposure: No; Do You Dip or Chew Tobacco: No; Hx Alcohol Use: No Hx Substance Use: No Preferred Language: Swedish Communication Ability: Effective Marriage Counselor Minister Required: No Beliefs That Will Affect Care: None Current Living Situation: Family Feels Safe at Home: Yes Assistive Devices: None Physical Exam Vital Signs Vital Signs - 24 hr 03/28/25 21:03 03/28/25 21:30 03/28/25 21:57 Temperature 36.2 C L Temperature Source Temporal Artery Scan Pulse Rate 82 Pulse Rate [Apical] 87 Respiratory Rate 16 16 Respiratory Effort / Characteristics Non-Labored Spontaneous Respiratory Depth Normal Respiratory Pattern Regular Blood Pressure 180/113 H Blood Pressure [Right Arm] 157/103 H Blood Pressure Mean 135 Blood Pressure Mean [Right Arm] 121 Blood Pressure Position [Right Arm] Semi-fowlers Pulse Oximetry 96 96 95 Oxygen Delivery Method Room Air Room Air Room Air Oxygen Flow Rate Sepsis Recent Fever Within 48 Hours No Sepsis New/Unexplained Change in Mental Status No Sepsis Action Taken by Nursing No Action Required Oxygen Flow Rate - Titration Pulse Oximetry Post Tiitration 03/28/25 21:59 03/28/25 22:16 03/28/25 22:52 Temperature Temperature Source Pulse Rate 90 Pulse Rate [Apical] 95 H Respiratory Rate 19 Respiratory Effort / Characteristics Respiratory Depth Respiratory Pattern Blood Pressure Blood Pressure [Right Arm] 172/127 H Blood Pressure Mean Blood Pressure Mean [Right Arm] 142 Blood Pressure Position [Right Arm] Right Lateral Pulse Oximetry 86 L 99 Oxygen Delivery Method Nasal Cannula Nasal Cannula Oxygen Flow Rate 0 2 Sepsis Recent Fever Within 48 Hours Sepsis New/Unexplained Change in Mental Status Sepsis Action Taken by Nursing Oxygen Flow Rate - Titration 2 Pulse Oximetry Post Tiitration 96 03/29/25 00:00 03/29/25 01:54 03/29/25 02:00 Temperature Temperature Source Pulse Rate 78 Pulse Rate [Apical] 79 78 Respiratory Rate 12 12 Respiratory Effort / Characteristics Non-Labored Spontaneous Non-Labored Spontaneous Respiratory Depth Normal Normal Respiratory Pattern Regular Regular Blood Pressure Blood Pressure [Right Arm] 141/105 H 132/88 Blood Pressure Mean Blood Pressure Mean [Right Arm] 117 102 Blood Pressure Position [Right Arm] Semi-fowlers Lying Pulse Oximetry 93 95 Oxygen Delivery Method Nasal Cannula Nasal Cannula Oxygen Flow Rate 2 2 Sepsis Recent Fever Within 48 Hours Sepsis New/Unexplained Change in Mental Status Sepsis Action Taken by Nursing Oxygen Flow Rate - Titration Pulse Oximetry Post Tiitration VITAL SIGNS - Vital signs and nursing notes were reviewed. GENERAL -44-year-old male appearing his stated age who is in no acute distress. Communicates well with provider and answers questions appropriately. HEAD - NC/AT. EYES - PERRL with EOMI bilaterally. Conjunctiva pink and moist with no injection noted. LUNGS - Chest wall symmetric without accessory muscle use, intercostals retractions, or central cyanosis. Breath sounds clear throughout all [place]. No wheezes, rales, or rhonchi appreciated. CARDIAC - RRR with S1/S2. No murmur, rubs, or gallops appreciated. ABDOMEN - Abdominal contour without pulsations or visible masses. Negative [place]'s or Julio Douglas's Signs. BS normoactive all four quadrants. Mildly increased tenderness to palpation appreciated across the right side of the abdomen. No guarding. No rebound Tenderness. No palpable masses, hepatosplenomegaly, or ascites noted. NEUROLOGIC - Sensory intact to light touch throughout. PSYCH - A&Ox3 and cooperates fully with examiner. Pt is very pleasant and interacts well with examiner. Course Administered Medications Discontinued Medications Fentanyl Citrate (Fentanyl Citrate Pf 100 Mcg/2 Ml Vial) 50 mcg IV NOW STA Stop: 03/28/25 23:58 Last Admin: 03/29/25 00:01 Dose: 50 mcg Documented By: ADALID Sodium Chloride (Nss) 1,000 mls @ 999 mls/hr IV .Q1H1M STA Stop: 03/28/25 22:11 Last Infusion: 03/28/25 22:29 Dose: Infused Documented By: Admin: 03/28/25 21:23 Dose: 999 mls/hr Documented By: ADALID Acetaminophen (Ofirmev) 1,000 mg in 100 mls @ 400 mls/hr IV NOW STA Stop: 03/29/25 00:11 Last Infusion: 03/29/25 00:25 Dose: Infused Documented By: Admin: 03/29/25 00:04 Dose: 400 mls/hr Documented By: ADALID Ioversol (Optiray 320 100ml) 94 ml IV ONCE ONE Stop: 03/28/25 22:39 Last Admin: 03/28/25 22:38 Dose: 94 ml Documented By: JOE Ketorolac Tromethamine (Ketorolac Tromethamine 15 Mg/Ml Vial) 15 mg IV NOW STA Stop: 03/28/25 21:12 Last Admin: 03/28/25 21:24 Dose: 15 mg Documented By: ADALID Morphine Sulfate (Morphine Sulfate 4 Mg/Ml 1 Ml Carp\Vial) 4 mg IV NOW STA Stop: 03/28/25 21:12 Last Admin: 03/28/25 21:25 Dose: 4 mg Documented By: ADALID Morphine Sulfate (Morphine Sulfate 4 Mg/Ml 1 Ml Carp\Vial) 4 mg IV NOW STA Stop: 03/28/25 22:49 Last Admin: 03/28/25 22:50 Dose: 4 mg Documented By: ADALID Ondansetron HCl (Ondansetron Inj 2 Mg/Ml 2 Ml Vial) 4 mg IV NOW STA Stop: 03/28/25 21:12 Last Admin: 03/28/25 21:24 Dose: 4 mg Documented By: ADALID Medical Decision Making Differential Diagnosis Differential diagnoses includes gastritis, gastroenteritis, IBS, small bowel obstruction, pancreatitis, peritonitis, constipation, urinary tract infection, kidney stone, among others. Medical Records Attestation: I reviewed the patient's medical records. Home Medications was personally reviewed by me Laboratory Data Attestation: I reviewed the patient's lab results. 03/28/25 21:25 03/28/25 21:25 Lab Results 03/28/25 03/28/25 Range/Units 21: 23:50 WBC 14.78 H (4.8-10.8) K/ul RBC 4.69 L (4.70-6.10) M/uL Hgb 15.2 (14.0-18.0) g/dl Hct 41.5 L (42.0-52.0) % MCV 88.5 (80.0-100.0) fL MCH 32.4 (25.0-34.0) pg MCHC 36.6 H (32.0-36.0) g/dL RDW Std Deviation 38.8 (36.4-46.3) fL RDW Coeff of Magan 12.2 (11.5-14.5) % Plt Count 394 (130-400) K/uL MPV 9.4 (9.4-12.4) fL Immature Gran % (Auto) 0.3 % Neut % (Auto) 81.0 % Lymph % (Auto) 14.5 % Edgar % (Auto) 3.9 % Eos % (Auto) 0.1 % Baso % (Auto) 0.2 % Neut # (Auto) 11.96 H (1.40-6.50) K/uL Lymph # (Auto) 2.15 (1.20-3.40) K/uL Edgar # (Auto) 0.58 (0.11-0.59) K/uL Eos # (Auto) 0.01 (0.00-0.50) K/uL Baso # (Auto) 0.03 (0.00-0.20) K/uL Immature Gran # (Auto) 0.05 (0.01-0.20) K/uL Sodium 137 (136-145) mmol/L Potassium 3.7 (3.5-5.1) mmol/L Chloride 103 (98-107) mmol/L Carbon Dioxide 25 (21-32) mmol/L Anion Gap 9 (3-11) BUN 16 (6-23) mg/dl Creatinine 1.31 (0.6-1.4) mg/dl Est Cr Clr Drug Dosing 90.8 ml/min eGFR 69.26 BUN/Creatinine Ratio 12.2 (10-20) Glucose 115 H (70-99(Fasting)) mg/dl Calcium 9.7 (8.6-10.3) mg/dl Total Bilirubin 0.8 (0.2-1.0) mg/dl AST 19 (13-39) U/L ALT 23 (7-52) U/L Alkaline Phosphatase 77 (34-104) U/L Total Protein 8.0 (6.0-8.3) gm/dl Albumin 4.5 (3.4-5.0) gm/dl Globulin 3.5 (2.5-4.0) gm/dl Albumin/Globulin Ratio 1.3 (0.9-2) Lipase 17 (11-82) U/L Urine Color Yellow Urine Appearance Clear (Clear) Urine pH 6.0 (4.5-7.5) Ur Specific [place] 1.033 H (1.000-1.030) Urine Protein Negative (Negative) Urine Glucose (UA) Negative (Negative) Urine Ketones Negative (Negative) Urine Blood 1+ H (Negative) Urine Nitrite Negative (Negative) Urine Bilirubin Negative (Negative) Urine Urobilinogen Negative (Negative) Ur Leukocyte Esterase Negative (Negative) Urine WBC (Auto) 0-5 (0-5) /hpf Urine RBC (Auto) 0-2 (0-2) /hpf U Hyaline Cast (Auto) 0-2 (0-2) /lpf U Epithel Cells (Auto) 0-2 (0-2) /hpf Urine Bacteria (Auto) None Seen (None Seen) Urine Comment Imaging Data Radiologist's Impression: Abdomen/Pelvis CT 03/28/25 21:12 Exam(s): CT ABDOMEN + PELVIS With Contrast IV Amt: 94ml EXAM: CT Abdomen and Pelvis With Intravenous Contrast CLINICAL HISTORY: Right flank Pain, hx kidney stones. TECHNIQUE: Axial computed tomography images of the abdomen and pelvis with intravenous contrast. CTDI is 24.03 mGy and DLP is 1492.71 mGy-cm. Automated exposure control was utilized for the study. A dose lowering technique was utilized adhering to the principles of ALARA. CONTRAST: Patient received 94ml of IV contrast COMPARISON: CT abdomen and pelvis 04/21/2025 FINDINGS: Lung bases: Unremarkable. No mass. No consolidation. ABDOMEN: Liver: Unremarkable. No mass. Gallbladder and bile ducts: Unremarkable. No calcified stones. No ductal dilation. Pancreas: Unremarkable. No mass. No ductal dilation. Spleen: Unremarkable. No splenomegaly. Adrenals: Unremarkable. No mass. Kidneys and ureters: Mild right hydronephrosis secondary to a 5 x 5 x 6 mm mid ureteral calculus. Additional nonobstructing right renal calculi are present. The left kidney is unremarkable, no left hydronephrosis or visualized nephrolithiasis. Stomach and bowel: Diverticulosis. No obstruction. No mucosal thickening. PELVIS: Appendix: Normal appendix. Bladder: Unremarkable. No mass. Reproductive: Nonspecific prostate gland enlargement. ABDOMEN and PELVIS: Intraperitoneal space: Unremarkable. No free air. No significant fluid collection. Bones/joints: No acute fracture. No dislocation. Soft tissues: Unremarkable. Vasculature: Mild atherosclerosis. No aneurysm. Lymph nodes: Unremarkable. No enlarged lymph nodes. IMPRESSION: 1. Mild right hydronephrosis secondary to a 5 x 5 x 6 mm mid ureteral calculus. 2. Nonspecific prostate gland enlargement. 3. Additional nonobstructing right renal calculi are present. 4. Diverticulosis. Electronically signed by: Angella Fisher MD 03/29/25 00:41 AM MDM Narrative Patient is a 44-year-old male who presents to the emergency department with complaints of severe right flank pain. Patient states that he recently had lithotripsy for a kidney stone on the right side and has a significant history of stones in the past. Patient states that this pain feels similar. Patient notes that he is having some intermittent nausea and vomiting as well. Patient notes that his pain today is in his right flank and has been experiencing it for just couple hours prior to arrival in the emergency department. Patient denies any urinary symptoms but does state that he has blood in his urine. Patient was evaluated by myself and findings were noted in the physical exam above. Patient was ordered IV placement, lab work, urinalysis, CT of the abdomen pelvis and medications for his symptoms. Patient was ordered IV Toradol, IV morphine, normal saline and a dose of IV Zofran. Patient's lab work resulted with an elevated white blood cell count of 14.78. Patient had no indication of anemia with a hemoglobin of 15.2 and hematocrit of 41.5. Patient had no significant electrolyte imbalance noted. Patient's urinalysis was not indicative of infection but did note 1+ blood. Upon reevaluation the patient states that he is still having significant pain and still continues to ride in the bed and pain. Patient was at this time ordered a subsequent dose of morphine and an IV dose of Tylenol. Patient CT was then completed and interpreted by radiology to show mild right hydronephrosis secondary to a 5 x 5 x 6 mm mid ureteral calculus. Patient has some nonspecific prostate gland enlargement as well as some nonobstructing right renal calculi as well. Discussed these findings with the patient and the patient verbalized understanding. The patient states that he did believe that it would be a kidney stone as the pain that he is experiencing today is similar to the pain that he was experiencing with his previous kidney stones. Patient notes that his pain has improved some but he still having a bit amount of pain. Patient was ordered a dose of IV fentanyl at this time. I reached out and spoke with Dr. Reyes with the [facility] about this patient. I gave him a full report of the patient's chief complaint, current status and the results of his imaging and lab work. He agreed to admit the patient under his service for further evaluation and management. Patient is reporting that his pain is controlled well with the fentanyl. Patient states that his symptoms have subsided at this time. Please refer the [facility]'s documentation for further evaluation and management of this patient. Impression Hydronephrosis, Kidney stones Discharge Plan Visit Data Chief Complaint: Kidney Stone Stated Complaint: KIDNEY STONE ED Provider: Davis Cassidy ED Midlevel Provider: Taylor Shultz Discharge Problem: Hydronephrosis, Kidney stones Patient Disposition: Admitted As Inpatient Condition: Fair Discharge Instructions Interventions: ED Discharge Assessment Last Done: 03/29/25 02:22 Forms Stand Alone Forms: My [employer] Prescriptions Prescriptions: No Action (DME) OneTouch Verio test strips Strip See Rx Instructions .Route Qty: 100 3RF Rx Instructions: check blood sugar twice daily (DME) lancets 33 gauge misc See Rx Instructions .Route Qty: 100 3RF Rx Instructions: Test blood sugar twice daily rosuvastatin 10 mg tablet 10 mg PO DAILY Qty: 90 2RF omega 4-fql-gjo-fish oil [Fish Oil] 1,000 mg (120 mg-180 mg) capsule 1 cap PO BID aspirin [Adult Low Dose Aspirin] 81 mg tablet,delayed release (DR/EC) 81 mg PO DAILY tirzepatide 10 mg/0.5 mL pen injector 10 mg subcut WK Rx Instructions: FRIDAYS famotidine 20 mg tablet 20 mg PO BID tamsulosin 0.4 mg capsule 0.4 mg PO QAM ondansetron 4 mg tablet,disintegrating 4 mg PO Q6H PRN (Reason: nausea and vomiting) Qty: 12 0RF Referrals Referrals: Mateusz Navarro MD [Primary Care Provider] - ED DC CONDITION Conditon at Discharge Condition at Discharge: Fair Discharge Problem: Hydronephrosis Qualifiers: Hydronephrosis type: with ureteral calculous obstruction Qualified Code(s): N 13.2 - Hydronephrosis with renal and ureteral calculous obstruction
[2025-03-28] MEDS: SODIUM CHLORIDE 0.9% 1,000 ML IV STA (21:23)
[2025-03-28] MEDS: KETOROLAC TROMETHAMINE 15 MG/ML VIAL IV STA (21:24)
[2025-03-28] MEDS: ONDANSETRON INJ 2 MG/ML 2 ML VIAL IV STA (21:24)
[2025-03-28] MEDS: MoRPHine SULFATE 4 MG/ML 1 ML CARP\\VIAL IV STA ×2 (21:25→22:50)
[2025-03-28 21:40] LABS: Hematocrit (blood only) 41.5 % (42.0-52.0); Hemoglobin 15.2 g/dl (14.0-18.0); Immature Granulocytes # (auto) 0.05 K/uL (0.01-0.20); Immature Granulocytes % (auto) 0.3 %; Mean Corpuscular Hemoglobin 32.4 pg (25.0-34.0); Mean Corpuscular Volume 88.5 fL (80.0-100.0); Platelet Count 394 K/uL (130-400); RDW Standard Deviation 38.8 fL (36.4-46.3); Red Blood Count 4.69 M/uL (4.70-6.10); White Blood Count 14.78 K/ul (4.8-10.8)
[2025-03-28 21:58] LABS: Alanine Aminotransferase 23.0 U/L (7-52); Albumin Globulin Ratio 1.3 (0.9-2); Alkaline Phosphatase 77.0 U/L (34-104); Anion Gap 9.0 (3-11); Bilirubin,Total 0.8 mg/dl (0.2-1.0); Blood Urea Nitrogen 16.0 mg/dl (6-23); Calcium 9.7 mg/dl (8.6-10.3); Carbon Dioxide 25.0 mmol/L (21-32); Chloride 103.0 mmol/L (98-107); Creatinine Clr Calc Pharmacy 90.8 ml/min; Globulin 3.5 gm/dl (2.5-4.0); Glucose 115.0 mg/dl (70-99(Fasting)); Lipase 17.0 U/L (11-82); Potassium 3.7 mmol/L (3.5-5.1); Sodium 137.0 mmol/L (136-145); Total Protein 8.0 gm/dl (6.0-8.3)
[2025-03-28] MEDS: OPTIRAY 320 100ml IV ONE (22:38)
[2025-03-29 00:04] LABS: Appearance Urine Clear (Clear); Bacteria Urine Automated None Seen (None Seen); Cast Urine Automated 0-2 /lpf (0-2); Epithelial Cell Urine Auto 0-2 /hpf (0-2); Glucose Urine UA Negative (Negative); RBC Urine Automated 0-2 /hpf (0-2); WBC Urine Automated 0-5 /hpf (0-5)
[2025-03-29] MEDS: ACETAMINOPHEN 1,000 MG/100 ML VIAL IV STA (00:04)
--- NOTE | 2025-03-29 00:42 | CT Scan Report ---
Exam(s): CT ABDOMEN + PELVIS With Contrast IV Amt: 94ml EXAM: CT Abdomen and Pelvis With Intravenous Contrast CLINICAL HISTORY: Right flank Pain, hx kidney stones. TECHNIQUE: Axial computed tomography images of the abdomen and pelvis with intravenous contrast. CTDI is 24.03 mGy and DLP is 1492.71 mGy-cm. Automated exposure control was utilized for the study. A dose lowering technique was utilized adhering to the principles of ALARA. CONTRAST: Patient received 94ml of IV contrast COMPARISON: CT abdomen and pelvis 04/21/2025 FINDINGS: Lung bases: Unremarkable. No mass. No consolidation. ABDOMEN: Liver: Unremarkable. No mass. Gallbladder and bile ducts: Unremarkable. No calcified stones. No ductal dilation. Pancreas: Unremarkable. No mass. No ductal dilation. Spleen: Unremarkable. No splenomegaly. Adrenals: Unremarkable. No mass. Kidneys and ureters: Mild right hydronephrosis secondary to a 5 x 5 x 6 mm mid ureteral calculus. Additional nonobstructing right renal calculi are present. The left kidney is unremarkable, no left hydronephrosis or visualized nephrolithiasis. Stomach and bowel: Diverticulosis. No obstruction. No mucosal thickening. PELVIS: Appendix: Normal appendix. Bladder: Unremarkable. No mass. Reproductive: Nonspecific prostate gland enlargement. ABDOMEN and PELVIS: Intraperitoneal space: Unremarkable. No free air. No significant fluid collection. Bones/joints: No acute fracture. No dislocation. Soft tissues: Unremarkable. Vasculature: Mild atherosclerosis. No aneurysm. Lymph nodes: Unremarkable. No enlarged lymph nodes. IMPRESSION: 1. Mild right hydronephrosis secondary to a 5 x 5 x 6 mm mid ureteral calculus. 2. Nonspecific prostate gland enlargement. 3. Additional nonobstructing right renal calculi are present. 4. Diverticulosis. Electronically signed by: Angella Fisher MD 03/29/25 00:41 AM
--- NOTE | 2025-03-29 01:49 | History & Physical Report ---
Date of Service March 29, 2025 Assessment & Plan (1) Renal colic on right side: Plan: 44-year-old male with past med history significant for diabetes, dyslipidemia, sleep apnea, hypertension, history of gastritis, history of kidney stones, history of panic disorder and obsessive-compulsive disorder, obesity, ADHD, presents with severe right flank pain and found to have kidney stone. Pain started in the evening. Associated with nausea and vomiting. Was sweating. Currently with the pain medications pain is improved. Denies any burning micturition or hematuria. Normal bowel movements. Denies chest pain or shortness of breath. No cough. No headache. No runny nose or sore throat. Hemodynamics are okay. Right renal colic Came with severe right flank pain CT scan showing mild right hydronephrosis secondary to 6 mm mid ureteral calculus Received IV Tylenol, IV Toradol, IV morphine and IV fentanyl for pain control Will keep him n.p.o. IV fluids IV Dilaudid as needed and IV Tylenol as needed Urology consult in a.m. Diabetes Sliding scale Will monitor Obstructive sleep apnea Not able to tolerate CPAP Plan for inspire device implantation GERD Famotidine BPH Flomax Hyperlipidemia On statin DVT prophylaxis SCDs Disposition Medical floor Full code. History of Present Illness Chief Complaint: Right renal colic Primary Care Provider: Mateusz Navarro MD 44-year-old male with past med history significant for diabetes, dyslipidemia, sleep apnea, hypertension, history of gastritis, history of kidney stones, history of panic disorder and obsessive-compulsive disorder, obesity, ADHD, presents with severe right flank pain and found to have kidney stone. Pain started in the evening. Associated with nausea and vomiting. Was sweating. Currently with the pain medications pain is improved. Denies any burning micturition or hematuria. Normal bowel movements. Denies chest pain or shortness of breath. No cough. No headache. No runny nose or sore throat. Hemodynamics are okay. Past medical history. As mentioned above. Past surgical history.. Lithotripsy. Hand tendon reconstruction. Social history. 1 pack every 3 days. No alcohol use. No drug use. Family history. No history in file. Allergies Allergy/AdvReac Type Severity Reaction Status Date / Time bee venom protein (honey bee) Allergy Severe Tongue Verified 03/28/25 22:36 swelling/Hives - Only by Blue Wasp shrimp Allergy Severe Swelling Verified 03/28/25 22:36 of Lip/Tongue/Throat/HIVES tramadol Allergy Intermediate face felt Verified 03/28/25 22:36 tight, itchy Home Medications Medication Instructions Recorded Confirmed Type aspirin 81 mg tablet,delayed 81 mg PO DAILY 12/21/23 03/28/25 History release (Adult Low Dose Aspirin) omega 8-cel-kvj-fish oil 1,000 mg 1 cap PO BID 12/21/23 03/28/25 History (120 mg-180 mg) capsule (Fish Oil) blood sugar diagnostic (OneTouch #100 ea 01/19/25 02/18/25 Rx Verio test strips) lancets 33 gauge #100 ea 01/19/25 02/18/25 Rx rosuvastatin 10 mg tablet 10 mg PO DAILY #90 tabs 01/19/25 03/28/25 Rx famotidine 20 mg tablet 20 mg PO BID 01/22/25 03/28/25 History ondansetron 4 mg disintegrating 4 mg PO Q6H PRN nausea and 01/22/25 03/28/25 Rx tablet vomiting #12 tabs tamsulosin 0.4 mg capsule 0.4 mg PO QAM 01/22/25 03/28/25 History tirzepatide 10 mg/0.5 mL 10 mg subcut WK 03/28/25 03/28/25 History subcutaneous pen injector Past Med/Surg History Problem List Kidney stones (Acute) Hydronephrosis (Acute) Renal colic on right side Biliary colic Nonalcoholic fatty liver disease High triglycerides HLD (hyperlipidemia) T2DM (type 2 diabetes mellitus) Transaminitis BETSY (obstructive sleep apnea) Obesity (BMI 30-39.9) Tobacco use disorder Diabetes mellitus, new onset (Acute) Stone in renal pelvis Current smoker DVT prophylaxis Constipation Intractable pain Acute kidney injury DVT (deep venous thrombosis) ADHD Intractable pain (Acute) Renal colic (Acute) S/P tendon repair FINGER - RT HAND Medical History ADHD Kidney stone Surgical History History of anesthesia reaction WOKE UP DURING PREVIOUS LITHOTRIPSY - 1 YEAR AGO [facility] [place] History of wisdom tooth extraction History of lithotripsy Family History Other No family history of adverse response to anesthesia Social History Smoking Status: Never smoker Tobacco Type: Cigarettes Cigarettes Per Day: 1 pack/day; Second Hand Exposure: No; Do You Dip or Chew Tobacco: No; Hx Alcohol Use: No Hx Substance Use: No Preferred Language: Macedonian Communication Ability: Effective Emr Specialist Required: No Beliefs That Will Affect Care: None Current Living Situation: Family Feels Safe at Home: Yes Assistive Devices: None Review of Systems Review of Systems: All systems reviewed & are unremarkable except as noted in HPI & below Physical Exam Physical Exam: General- Not in distress. Head- atraumatic Eyes- PERRL. ENT- oropharynx clear Neck- supple, no JVD. Lungs- clear to auscultation no wheezing or crackles. Heart- regular rhythm; no murmur, no gallop. Abdomen- normal bowel sounds, soft, right sided tenderness, no distension Extremities- no pretibial edema, no erythema seen Neuro- alert, oriented PERRL, no facial palsy; no dysarthria; moves extremities Results & Data Results & Data Vital Signs (Past 12 Hours) Vital Signs Temp Pulse Pulse Resp BP BP Pulse Ox 03/29/25 00:00 79 12 141/105 H 93 03/28/25 22:52 95 H 19 172/127 H 99 03/28/25 22:16 86 L 03/28/25 21:59 90 03/28/25 21:57 87 16 157/103 H 95 03/28/25 21:30 96 03/28/25 21:03 36.2 C L 82 16 180/113 H 96 O2 Del Method O2 Flow Rate 03/29/25 00:00 Nasal Cannula 2 03/28/25 22:52 Nasal Cannula 2 03/28/25 22:16 Nasal Cannula 0 03/28/25 21:59 03/28/25 21:57 Room Air 03/28/25 21:30 Room Air 03/28/25 21:03 Room Air Diagnostic Findings Laboratory Results WBC 14.78 K/ul (4.8-10.8) H 03/28/25 21:25 RBC 4.69 M/uL (4.70-6.10) L 03/28/25: Hgb 15.2 g/dl (14.0-18.0) 03/28/25: Hct 41.5 % (42.0-52.0) L 03/28/25: MCV 88.5 fL (80.0-100.0) 03/28/25: MCH 32.4 pg (25.0-34.0) 03/28/25: MCHC 36.6 g/dL (32.0-36.0) H 03/28/25: RDW Std Deviation 38.8 fL (36.4-46.3) 03/28/25 RDW Coeff of Magan 12.2 % (11.5-14.5) 03/28/25 Plt Count 394 K/uL (130-400) 03/28/25 MPV 9.4 fL (9.4-12.4) 03/28/25 Immature Gran % (Auto) 0.3 % 03/28/25 Neut % (Auto) 81.0 % 03/28/25: Lymph % (Auto) 14.5 % 03/28/25: [place] % (Auto) 3.9 % 03/28/25: Eos % (Auto) 0.1 % 03/28/25 Baso % (Auto) 0.2 % 03/28/25 Neut # (Auto) 11.96 K/uL (1.40-6.50) H 03/28/25: Lymph # (Auto) 2.15 K/uL (1.20-3.40) 03/28/25: [place] # (Auto) 0.58 K/uL (0.11-0.59) 03/28/25 Eos # (Auto) 0.01 K/uL (0.00-0.50) 03/28/25 Baso # (Auto) 0.03 K/uL (0.00-0.20) 03/28/25: Immature Gran # (Auto) 0.05 K/uL (0.01-0.20) 03/28/25 21:25 Sodium 137 mmol/L (136-145) 03/28/25 21:25 Potassium 3.7 mmol/L (3.5-5.1) 03/28/25 21: Chloride 103 mmol/L (98-107) 03/28/25 21: Carbon Dioxide 25 mmol/L (21-32) 03/28/25 21: Anion Gap 9 (3-11) 03/28/25 21: BUN 16 mg/dl (6-23) 03/28/25: Creatinine 1.31 mg/dl (0.6-1.4) 03/28/25 21: Est Cr Clr Drug Dosing 90.8 ml/min 03/28/25 21: eGFR 69.26 03/28/25: BUN/Creatinine Ratio 12.2 (10-20) 03/28/25: Glucose 115 mg/dl (70-99(Fasting)) H 03/28/25: Calcium 9.7 mg/dl (8.6-10.3) 03/28/25: Total Bilirubin 0.8 mg/dl (0.2-1.0) 03/28/25 21: AST 19 U/L (13-39) 03/28/25 21: ALT 23 U/L (7-52) 03/28/25: Alkaline Phosphatase 77 U/L (34-104) 03/28/25: Total Protein 8.0 gm/dl (6.0-8.3) 03/28/25: Albumin 4.5 gm/dl (3.4-5.0) 03/28/25: Globulin 3.5 gm/dl (2.5-4.0) 03/28/25: Albumin/Globulin Ratio 1.3 (0.9-2) 03/28/25: Lipase 17 U/L (11-82) 03/28/25 21:25 Urine Color Yellow 03/28/25 23:50 Urine Appearance Clear (Clear) 03/28/25 23:50 Urine pH 6.0 (4.5-7.5) 03/28/25 23:50 Ur Specific [place] 1.033 (1.000-1.030) H 03/28/25 23:50 Urine Protein Negative (Negative) 03/28/25 23:50 Urine Glucose (UA) Negative (Negative) 03/28/25 23:50 Urine Ketones Negative (Negative) 03/28/25 23:50 Urine Blood 1+ (Negative) H 03/28/25 23:50 Urine Nitrite Negative (Negative) 03/28/25 23:50 Urine Bilirubin Negative (Negative) 03/28/25 23:50 Urine Urobilinogen Negative (Negative) 03/28/25 23:50 Ur Leukocyte Esterase Negative (Negative) 03/28/25 23:50 Urine WBC (Auto) 0-5 /hpf (0-5) 03/28/25 23:50 Urine RBC (Auto) 0-2 /hpf (0-2) 03/28/25 23:50 U Hyaline Cast (Auto) 0-2 /lpf (0-2) 03/28/25 23:50 U Epithel Cells (Auto) 0-2 /hpf (0-2) 03/28/25 23:50 Urine Bacteria (Auto) None Seen (None Seen) 03/28/25 23:50 Urine Comment 03/28/25 23:50 Impressions Abdomen/Pelvis CT 03/28/25 21:12 Exam(s): CT ABDOMEN + PELVIS With Contrast IV Amt: 94ml EXAM: CT Abdomen and Pelvis With Intravenous Contrast CLINICAL HISTORY: Right flank Pain, hx kidney stones. TECHNIQUE: Axial computed tomography images of the abdomen and pelvis with intravenous contrast. CTDI is 24.03 mGy and DLP is 1492.71 mGy-cm. Automated exposure control was utilized for the study. A dose lowering technique was utilized adhering to the principles of ALARA. CONTRAST: Patient received 94ml of IV contrast COMPARISON: CT abdomen and pelvis 04/21/2025 FINDINGS: Lung bases: Unremarkable. No mass. No consolidation. ABDOMEN: Liver: Unremarkable. No mass. Gallbladder and bile ducts: Unremarkable. No calcified stones. No ductal dilation. Pancreas: Unremarkable. No mass. No ductal dilation. Spleen: Unremarkable. No splenomegaly. Adrenals: Unremarkable. No mass. Kidneys and ureters: Mild right hydronephrosis secondary to a 5 x 5 x 6 mm mid ureteral calculus. Additional nonobstructing right renal calculi are present. The left kidney is unremarkable, no left hydronephrosis or visualized nephrolithiasis. Stomach and bowel: Diverticulosis. No obstruction. No mucosal thickening. PELVIS: Appendix: Normal appendix. Bladder: Unremarkable. No mass. Reproductive: Nonspecific prostate gland enlargement. ABDOMEN and PELVIS: Intraperitoneal space: Unremarkable. No free air. No significant fluid collection. Bones/joints: No acute fracture. No dislocation. Soft tissues: Unremarkable. Vasculature: Mild atherosclerosis. No aneurysm. Lymph nodes: Unremarkable. No enlarged lymph nodes. IMPRESSION: 1. Mild right hydronephrosis secondary to a 5 x 5 x 6 mm mid ureteral calculus. 2. Nonspecific prostate gland enlargement. 3. Additional nonobstructing right renal calculi are present. 4. Diverticulosis. Electronically signed by: Angella Fisher MD 03/29/25 00:41 AM Code Status & VTE Plan VTE Prophylaxis Plan VTE Prophylaxis will be ordered: Yes
[2025-03-29] MEDS ORDERED: POLYETHYLENE (MIRALAX) 17 GM PACK PO PRN (02:42)
[2025-03-29] MEDS ORDERED: GLUCOSE 40% GEL 15 GM TUBE PO PRN (02:42)
[2025-03-29] MEDS ORDERED: DEXTROSE 50% 50 ML SYRINGE IV PRN (02:42)
[2025-03-29] MEDS ORDERED: GLUCAGON FOR INJ 1 MG VIAL SQ PRN (02:42)
[2025-03-29] MEDS ORDERED: CARBOHYDRATES FOR HYPOGLYCEMIA PO PRN (02:42)
[2025-03-29] MEDS ORDERED: GLUCOSE 10 TAB/TUBE PO PRN (02:42)
[2025-03-29] MEDS ORDERED: ACETAMINOPHEN 1,000 MG/100 ML VIAL IV PRN (02:42)
[2025-03-29] MEDS: SODIUM CHLORIDE 0.9% 1,000 ML IV SCH (03:17)
[2025-03-29] MEDS: HYDROmorphone INJ 0.5 MG/0.5 ML SYR IV PRN ×2 (03:17→10:50)
[2025-03-29] MEDS: INSULIN ASPART PER UNIT CHARGE SC SCH (06:09)
[2025-03-29 07:06] LABS: Hematocrit (blood only) 38.1 % (42.0-52.0); Hemoglobin 13.7 g/dl (14.0-18.0); Immature Granulocytes # (auto) 0.02 K/uL (0.01-0.20); Immature Granulocytes % (auto) 0.2 %; Mean Corpuscular Hemoglobin 31.9 pg (25.0-34.0); Mean Corpuscular Volume 88.8 fL (80.0-100.0); Platelet Count 309 K/uL (130-400); RDW Standard Deviation 39.5 fL (36.4-46.3); Red Blood Count 4.29 M/uL (4.70-6.10); White Blood Count 11.72 K/ul (4.8-10.8)
[2025-03-29] MEDS: ASPIRIN 81 MG ECTAB PO SCH (07:29)
[2025-03-29] MEDS: ROSUVASTATIN CALCIUM 10 MG TAB PO SCH (07:29)
[2025-03-29] MEDS: TAMSULOSIN HCL 0.4 MG CAP PO SCH (07:29)
[2025-03-29 07:42] LABS: Anion Gap 5.0 (3-11); Blood Urea Nitrogen 16.0 mg/dl (6-23); Calcium 8.4 mg/dl (8.6-10.3); Carbon Dioxide 27.0 mmol/L (21-32); Chloride 107.0 mmol/L (98-107); Creatinine Clr Calc Pharmacy 85.5 ml/min; Glucose 87.0 mg/dl (70-99(Fasting)); Magnesium 1.7 mg/dl (1.7-2.4); Potassium 3.6 mmol/L (3.5-5.1); Sodium 139.0 mmol/L (136-145)
[2025-03-29] MEDS: ONDANSETRON INJ 2 MG/ML 2 ML VIAL IV PRN (07:42)
[2025-03-29 08:05] LABS: Hemoglobin A1C 4.9 % (4.5-5.6)
[2025-03-29] MEDS: FAMOTIDINE 20 MG TAB PO SCH (08:52)
--- NOTE | 2025-03-29 09:50 | Urology Consultation ---
Date of Consultation March 29, 2025 Assessment & Plan (1) Renal colic on right side: Plan Obstructing right mid ureteral calculus with other stones within the kidney Discussed different options including immediate stent placement versus delaying until tomorrow with attempted ureteroscopy and laser lithotripsy for definitive treatment We will plan to delay until tomorrow He feels that he is very capable of that He will remain n.p.o. as he is on Mounjaro and has delayed gastric emptying at baseline He can have small sips of water until midnight Risks, benefits, expectations for the surgery discussedhe is very much on board with pursuing solitary intervention and treatment History of Present Illness Attending Physician: Carrington Hinds MD History of Present Illness 44-year-old male with a history of stones who presents secondary to right sided flank pain and generalized ill feeling No fevers or chills Mild nausea No gross hematuria or dysuria CT showing a few small stones within the right kidney as well as a right mid ureteral calculus Feeling a bit better today in terms of pain but still generally does not feel great Is anxious to have treatment and does not feel he is likely capable of spontaneous passage at home Has previously had soundwave lithotripsy and other intervention Allergies Allergy/AdvReac Type Severity Reaction Status Date / Time bee venom protein (honey bee) Allergy Severe Tongue Verified 03/28/25 22:36 swelling/Hives - Only by Blue Wasp shrimp Allergy Severe Swelling Verified 03/28/25 22:36 of Lip/Tongue/Throat/HIVES tramadol Allergy Intermediate face felt Verified 03/28/25 22:36 tight, itchy Home Medications Medication Instructions Recorded Confirmed Type aspirin 81 mg tablet,delayed 81 mg PO DAILY 12/21/23 03/28/25 History release (Adult Low Dose Aspirin) omega 8-ltu-etw-fish oil 1,000 mg 1 cap PO BID 12/21/23 03/28/25 History (120 mg-180 mg) capsule (Fish Oil) blood sugar diagnostic (OneTouch #100 ea 01/19/25 02/18/25 Rx Verio test strips) lancets 33 gauge #100 ea 01/19/25 02/18/25 Rx rosuvastatin 10 mg tablet 10 mg PO DAILY #90 tabs 01/19/25 03/28/25 Rx famotidine 20 mg tablet 20 mg PO BID 01/22/25 03/28/25 History ondansetron 4 mg disintegrating 4 mg PO Q6H PRN nausea and 01/22/25 03/28/25 Rx tablet vomiting #12 tabs tamsulosin 0.4 mg capsule 0.4 mg PO QAM 01/22/25 03/28/25 History tirzepatide 10 mg/0.5 mL 10 mg subcut WK 03/28/25 03/28/25 History subcutaneous pen injector Patient History Medical History ADHD Kidney stone Surgical History History of anesthesia reaction WOKE UP DURING PREVIOUS LITHOTRIPSY - 1 YEAR AGO [facility] [place] History of wisdom tooth extraction History of lithotripsy Family History Other No family history of adverse response to anesthesia Social History Smoking Status: Never smoker Tobacco Type: Cigarettes Cigarettes Per Day: 1 pack/day; Second Hand Exposure: No; Do You Dip or Chew Tobacco: No; Hx Alcohol Use: No Hx Substance Use: No Preferred Language: [place] Communication Ability: Effective Esthetics Instructor Required: No Beliefs That Will Affect Care: None Current Living Situation: Family Feels Safe at Home: Yes Assistive Devices: None Review of Systems Review of Systems: All systems reviewed & are unremarkable except as noted in HPI & below Physical Exam Constitutional: well developed and well nourished Neck: neck nontender Respiratory: normal respiratory effort; no respiratory distress and does not use accessory muscles Cardiovascular: Rate/Rhythm: regular rate Vessels: radial pulses present Extremities: no edema Gastrointestinal (Abdomen): Inspection/Auscultation: abdomen normal to inspection Percussion/Palpation: abdomen soft; abdomen nontender and no guarding Musculoskeletal: Head/Neck/Chest: normocephalic and head atraumatic Extremities: extremities normal to inspection Skin: no rashes and no lesions Trauma: no evidence of skin trauma Neurologic: awake; not obtunded Speech / Cognition: normal speech Motor/Sensory: no tremor Psychiatric: Orientation: alert and oriented x 3 Genitourinary: no CVA tenderness Lymphatic: no lymphadenopathy Results & Data Vital Signs (Past 12 Hours) Vital Signs Temp Pulse Pulse Pulse Resp BP Pulse Ox 03/29/25 07:55 36.6 C 73 16 126/85 97 03/29/25 03:43 36.5 C 78 18 131/92 94 03/29/25 02:42 36.5 C 78 18 131/92 94 03/29/25 02:00 78 12 132/88 95 03/29/25 01:54 78 03/29/25 00:00 79 12 141/105 H 93 03/28/25 22:52 95 H 19 172/127 H 99 03/28/25 22:16 86 L 03/28/25 21:59 90 03/28/25 21:57 87 16 157/103 H 95 O2 Del Method O2 Flow Rate 03/29/25 07:55 Room Air 03/29/25 03:43 Room Air 03/29/25 02:42 Room Air 03/29/25 02:00 Nasal Cannula 2 03/29/25 01:54 03/29/25 00:00 Nasal Cannula 2 03/28/25 22:52 Nasal Cannula 2 03/28/25 22:16 Nasal Cannula 0 03/28/25 21:59 03/28/25 21:57 Room Air PG Care Time/CCT Total # of Minutes Spent Total Time Spent with Patient: Total time spent is greater than 50% in coordination of care (as documented) at patient's floor/unit and/or counseling patient: Coding Level of Care Code 80978 IN/OBS CONSULT LVL 3,45M Diagnoses Renal colic on right side N23
--- NOTE | 2025-03-29 13:43 | Communication Note ---
Patient seen and examined at bedside. Patient having right flank pain. Frustrated with this being s/p lithotripsy last week. On exam, right flank and back pain tenderness to palpation, CVA tenderness. WBC downtrending, UA without evidence of infection. Patient with right obstructing renal stone. Per urology NPO after midnight given slow transit. Scheduled for stent placement tomorrow. Increase dilaudid IV to q2hr prn for severe pain. Date of Service: March 29, 2025
[2025-03-29] MEDS: LIDOCAINE 5% 1 PATCH TD STA (20:49)
[2025-03-29] MEDS: KETOROLAC TROMETHAMINE 15 MG/ML VIAL IV SCH (20:53)
[2025-03-30] MEDS: REMOVE LIDODERM PATCH SCH (08:16)
[2025-03-30 08:26] LABS: Hematocrit (blood only) 36.6 % (42.0-52.0); Hemoglobin 13.1 g/dl (14.0-18.0); Mean Corpuscular Hemoglobin 32.2 pg (25.0-34.0); Mean Corpuscular Volume 89.9 fL (80.0-100.0); Platelet Count 289 K/uL (130-400); RDW Standard Deviation 39.9 fL (36.4-46.3); Red Blood Count 4.07 M/uL (4.70-6.10); White Blood Count 11.08 K/ul (4.8-10.8)
--- NOTE | 2025-03-30 08:43 | Urology Progress Note ---
Date of Service March 30, 2025 Assessment & Plan (1) Renal colic on right side: (2) Hydronephrosis: (3) Right ureteral stone: Plan 44yo male admitted with right flank pain secondary to an obstructing 6mm mid right ureteral stone Will proceed to the OR today for cystoscopy, right retrograde pyelogram, right ureteral stent placement, possible ureteroscopy, laser lithotripsy/stone treatment. Risks and benefits to be reviewed with patient by Dr. Leal. Keep NPO. Will cover with ciprofloxacin preoperatively. Urology will follow. Admission and Anticipated Discharge Date Admission Date: March 29, 2025 Subjective Patient seen at bedside this morning. NAD. Afebrile and hemodynamically stable. Labs today show mild leukocytosis of 11.08 and MOLLY 1.60. Has been NPO. Still with right flank pain, managing with medication. Denies stone passage. Review of Systems Constitutional: as per Subjective / HPI Genitourinary: + as per Subjective / HPI Physical Exam Constitutional: no acute distress Respiratory: no respiratory distress and no labored breathing Skin: No visible rashes or lesions to exposed skin areas Neurologic: moves all extremities and awake Psychiatric: A+Ox3, euthymic affect Results & Data Vital Signs (Past 12 Hours) Vital Signs Temp Pulse Resp BP Pulse Ox O2 Del Method 03/30/25 07:39 36.9 C 82 16 150/87 H 96 Room Air 03/29/25 23:03 36.8 C 100 H 18 129/86 94 Room Air PG Care Time/CCT Total # of Minutes Spent Total Time Spent with Patient: Total time spent is greater than 50% in coordination of care (as documented) at patient's floor/unit and/or counseling patient: Coding Level of Care Code 79873 SUB INP/OBS CARE 2/35MIN Diagnoses Renal colic on right side N23 Hydronephrosis N13.2 Hydronephrosis type: with ureteral calculous obstruction Right ureteral stone N20.1 (2) Hydronephrosis Hydronephrosis type: with ureteral calculous obstruction Qualified Code(s): N13.2 - Hydronephrosis with renal and ureteral calculous obstruction
[2025-03-30 08:48] LABS: Anion Gap 6.0 (3-11); Blood Urea Nitrogen 13.0 mg/dl (6-23); Calcium 8.4 mg/dl (8.6-10.3); Carbon Dioxide 25.0 mmol/L (21-32); Chloride 105.0 mmol/L (98-107); Creatinine Clr Calc Pharmacy 74.3 ml/min; Glucose 87.0 mg/dl (70-99(Fasting)); Magnesium 1.7 mg/dl (1.7-2.4); Potassium 3.6 mmol/L (3.5-5.1); Sodium 136.0 mmol/L (136-145)
--- NOTE | 2025-03-30 14:15 | Anesthesiology Consultation ---
Date of Service March 30, 2025 Assessment & Plan ASA ASA2 Proposed Anesthesia Anesthesia Type: General (Rapid sequence induction with ET tube) Risk / Benefits Reviewed With: PT / POA / Parent / Guardian, Accepts Plan and Informed Consent Obtained History Surgery Operation Date: 03/30/25 07:00 Proposed Procedures p Laser Lithotripsy - Jamir Leal MD Height/Weight Height: 5 ft 11 in Weight: 107.7 kg Allergies Allergy/AdvReac Type Severity Reaction Status Date / Time bee venom protein (honey bee) Allergy Severe Tongue Verified 03/28/25 22:36 swelling/Hives - Only by Blue Wasp shrimp Allergy Severe Swelling Verified 03/28/25 22:36 of Lip/Tongue/Throat/HIVES tramadol Allergy Intermediate face felt Verified 03/28/25 22:36 tight, itchy Medications Home Medications Medication Instructions Recorded Confirmed Last Taken aspirin 81 mg tablet,delayed 81 mg PO DAILY 12/21/23 03/28/25 03/28/25 release (Adult Low Dose Aspirin) omega 9-xwa-vig-fish oil 1,000 mg 1 cap PO BID 12/21/23 03/28/25 03/28/25 (120 mg-180 mg) capsule (Fish Oil) blood sugar diagnostic (OneTouch #100 ea 01/19/25 02/18/25 Unknown Verio test strips) lancets 33 gauge #100 ea 01/19/25 02/18/25 Unknown rosuvastatin 10 mg tablet 10 mg PO DAILY #90 tabs 01/19/25 03/28/25 03/28/25 famotidine 20 mg tablet 20 mg PO BID 01/22/25 03/28/25 03/28/25 ondansetron 4 mg disintegrating 4 mg PO Q6H PRN nausea and 01/22/25 03/28/25 Unknown tablet vomiting #12 tabs tamsulosin 0.4 mg capsule 0.4 mg PO QAM 01/22/25 03/28/25 03/28/25 tirzepatide 10 mg/0.5 mL 10 mg subcut WK 03/28/25 03/28/25 03/27/25 subcutaneous pen injector Active Medications Generic Name Dose Route Start Last Admin Trade Name Freq PRN Reason Stop Dose Admin Aspirin 81 mg 03/29/25 09:00 03/30/25 08:31 Aspirin 81 Mg Ectab PO 04/28/25 08:59 81 mg DAILY PARMINDER Administration Famotidine 20 mg 03/29/25 09:00 03/30/25 08:31 Famotidine 20 Mg Tab PO 04/28/25 08:59 20 mg BID PARMINDER Administration Hydromorphone HCl 0.5 mg 03/29/25 10:45 03/30/25 07:48 Hydromorphone Inj 0.5 Mg/0.5 Ml Syr IV 04/12/25 02:41 0.5 mg Q2HWA PRN Administration Mod-Sev Pain (Scale 4-10) Sodium Chloride 1,000 mls @ 125 mls/hr 03/29/25 02:42 03/30/25 13:16 Nss IV 04/01/25 02:41 125 mls/hr .Q8H PARMINDER Administration Insulin Aspart 0 units 03/29/25 06:00 03/30/25 13:05 Insulin Aspart Per Unit Charge SC 04/28/25 05:59 Not Given Q6 PARMINDER Ketorolac Tromethamine 15 mg 03/29/25 21:00 03/30/25 08:31 Ketorolac Tromethamine 15 Mg/Ml Vial IV 04/03/25 20:59 15 mg Q12 PARMINDER Administration Ondansetron HCl 4 mg 03/29/25 02:42 03/29/25 22:26 Ondansetron Inj 2 Mg/Ml 2 Ml Vial IV 04/28/25 02:41 4 mg Q6H PRN Administration Nausea Rosuvastatin Calcium 10 mg 03/29/25 09:00 03/30/25 08:31 Rosuvastatin Calcium 10 Mg Tab PO 04/28/25 08:59 10 mg DAILY PARMINDER Administration Tamsulosin HCl 0.4 mg 03/29/25 09:00 03/30/25 08:31 Tamsulosin Hcl 0.4 Mg Cap PO 04/28/25 08:59 0.4 mg QAM PARMINDER Administration NPO Date Last Intake of Fluids: 03/30/25 Time Last Intake of Fluids: 08:30 Last Intake of Fluids Comment: sips water with meds Date Last Intake of Solids: 03/28/25 Time Last Intake of Solids: 23:59 Past Medical History Medical History ADHD Kidney stone Exercise / Class Metabolic Activity II 4-5 Yardwork/Stairs/Walk up hill Past Family History Family History Other No family history of adverse response to anesthesia Past Surgical History Surgical History History of anesthesia reaction WOKE UP DURING PREVIOUS LITHOTRIPSY - 1 YEAR AGO [facility] [place] History of wisdom tooth extraction History of lithotripsy Past Anesthesia History No Hx of Anesthesia Complications and No Family Hx of Anesthesia Complications History of PONV No Hx of PONV and No Hx of Motion Sickness Social History Smoking Status: Never smoker tobacco type: cigarettes Smoking cigarettes per day: 1 pack/day Do You Dip or Chew Tobacco: No Hx Alcohol Use: No alcohol intake frequency: 0-2 drinks per day Hx Substance Use: No substance use type: does not use Last Used Substance: Days (ago) Last Used Substance Other:: 1 Physical Exam Vital Signs Last Vital Signs Temp 36.8 C 03/30/25 13:53 Pulse 84 03/30/25 13:53 Resp 16 03/30/25 07:39 BP 139/89 03/30/25 13:53 Pulse Ox 96 03/30/25 13:53 O2 Del Method Room Air 03/30/25 13:53 O2 Flow Rate 2 03/29/25 02:00 Constitutional no acute distress ENMT Mouth: no dentition abnormality Thyromental Distance: > or= 3.5 Finger Breadths Mallampati Class: III Neck normal visual inspection Respiratory normal respiratory effort; no respiratory distress Auscultation: lungs clear to auscultation bilaterally Cardiovascular Rate/Rhythm: regular rate and regular rhythm Heart Sounds: no murmur Musculoskeletal Spine: normal cervical ROM Psychiatric Orientation: alert and oriented x 3 Testing Laboratory Results 03/30/25 07:46 03/30/25 07:46 Hemoglobin A1c 4.9 % (4.5-5.6) 03/29/25 06:47 Urine Color Yellow 03/28/25 23:50 Urine Appearance Clear (Clear) 03/28/25 23:50 Urine pH 6.0 (4.5-7.5) 03/28/25 23:50 Ur Specific Ware 1.033 (1.000-1.030) H 03/28/25 23:50 Urine Protein Negative (Negative) 03/28/25 23:50 Urine Glucose (UA) Negative (Negative) 03/28/25 23:50 Urine Ketones Negative (Negative) 03/28/25 23:50 Urine Nitrite Negative (Negative) 03/28/25 23:50 Ur Leukocyte Esterase Negative (Negative) 03/28/25 23:50 Urine WBC (Auto) 0-5 /hpf (0-5) 03/28/25 23:50 Urine RBC (Auto) 0-2 /hpf (0-2) 03/28/25 23:50 U Hyaline Cast (Auto) 0-2 /lpf (0-2) 03/28/25 23:50 U Epithel Cells (Auto) 0-2 /hpf (0-2) 03/28/25 23:50 Urine Bacteria (Auto) None Seen (None Seen) 03/28/25 23:50 03/30/25 03/30/25 03/30/25 13:43 12:05 06:07 POC Glucose 73 79 82 Day of Procedure Evaluation. Date of Surgery March 30, 2025 Height/Weight Height: 5 ft 11 in Weight: 107.7 kg Vital Signs Last Vital Signs Temp 36.8 C 03/30/25 13:53 Pulse 84 03/30/25 13:53 Resp 16 03/30/25 07:39 BP 139/89 03/30/25 13:53 Pulse Ox 96 03/30/25 13:53 O2 Del Method Room Air 03/30/25 13:53 O2 Flow Rate 2 03/29/25 02:00 Allergies Allergy/AdvReac Type Severity Reaction Status Date / Time bee venom protein (honey bee) Allergy Severe Tongue Verified 03/28/25 22:36 swelling/Hives - Only by Blue Wasp shrimp Allergy Severe Swelling Verified 03/28/25 22:36 of Lip/Tongue/Throat/HIVES tramadol Allergy Intermediate face felt Verified 03/28/25 22:36 tight, itchy Medications Home Medications Medication Instructions Recorded Confirmed Last Taken aspirin 81 mg tablet,delayed 81 mg PO DAILY 12/21/23 03/28/25 03/28/25 release (Adult Low Dose Aspirin) omega 1-gml-ffs-fish oil 1,000 mg 1 cap PO BID 12/21/23 03/28/25 03/28/25 (120 mg-180 mg) capsule (Fish Oil) blood sugar diagnostic (OneTouch #100 ea 01/19/25 02/18/25 Unknown Verio test strips) lancets 33 gauge #100 ea 01/19/25 02/18/25 Unknown rosuvastatin 10 mg tablet 10 mg PO DAILY #90 tabs 01/19/25 03/28/25 03/28/25 famotidine 20 mg tablet 20 mg PO BID 01/22/25 03/28/25 03/28/25 ondansetron 4 mg disintegrating 4 mg PO Q6H PRN nausea and 01/22/25 03/28/25 Unknown tablet vomiting #12 tabs tamsulosin 0.4 mg capsule 0.4 mg PO QAM 01/22/25 03/28/25 03/28/25 tirzepatide 10 mg/0.5 mL 10 mg subcut WK 03/28/25 03/28/25 03/27/25 subcutaneous pen injector Active Medications Generic Name Dose Route Start Last Admin Trade Name Freq PRN Reason Stop Dose Admin Aspirin 81 mg 03/29/25 09:00 03/30/25 08:31 Aspirin 81 Mg Ectab PO 04/28/25 08:59 81 mg DAILY PARMINDER Administration Famotidine 20 mg 03/29/25 09:00 03/30/25 08:31 Famotidine 20 Mg Tab PO 04/28/25 08:59 20 mg BID PARMINDER Administration Hydromorphone HCl 0.5 mg 03/29/25 10:45 03/30/25 07:48 Hydromorphone Inj 0.5 Mg/0.5 Ml Syr IV 04/12/25 02:41 0.5 mg Q2HWA PRN Administration Mod-Sev Pain (Scale 4-10) Sodium Chloride 1,000 mls @ 125 mls/hr 03/29/25 02:42 03/30/25 13:16 Nss IV 04/01/25 02:41 125 mls/hr .Q8H PARMINDER Administration Insulin Aspart 0 units 03/29/25 06:00 03/30/25 13:05 Insulin Aspart Per Unit Charge SC 04/28/25 05:59 Not Given Q6 PARMINDER Ketorolac Tromethamine 15 mg 03/29/25 21:00 03/30/25 08:31 Ketorolac Tromethamine 15 Mg/Ml Vial IV 04/03/25 20:59 15 mg Q12 PARMINDER Administration Ondansetron HCl 4 mg 03/29/25 02:42 03/29/25 22:26 Ondansetron Inj 2 Mg/Ml 2 Ml Vial IV 04/28/25 02:41 4 mg Q6H PRN Administration Nausea Rosuvastatin Calcium 10 mg 03/29/25 09:00 03/30/25 08:31 Rosuvastatin Calcium 10 Mg Tab PO 04/28/25 08:59 10 mg DAILY PARMINDER Administration Tamsulosin HCl 0.4 mg 03/29/25 09:00 03/30/25 08:31 Tamsulosin Hcl 0.4 Mg Cap PO 04/28/25 08:59 0.4 mg QAM PARMINDER Administration Past Anesthesia History No Hx of Anesthesia Complications and No Family Hx of Anesthesia Complications History of PONV No Hx of PONV and No Hx of Motion Sickness NPO Date Last Intake of Fluids: 03/30/25 Time Last Intake of Fluids: 08:30 Last Intake of Fluids Comment: sips water with meds Date Last Intake of Solids: 03/28/25 Time Last Intake of Solids: 23:59 HCG & FBG Results 03/30/25 03/30/25 03/30/25 13:43 12:05 06:07 POC Glucose 73 79 82 Home Medications Home Medications Medication Instructions Recorded Confirmed Last Taken aspirin 81 mg tablet,delayed 81 mg PO DAILY 12/21/23 03/28/25 03/28/25 release (Adult Low Dose Aspirin) omega 8-laf-awz-fish oil 1,000 mg 1 cap PO BID 12/21/23 03/28/25 03/28/25 (120 mg-180 mg) capsule (Fish Oil) blood sugar diagnostic (OneTouch #100 ea 01/19/25 02/18/25 Unknown Verio test strips) lancets 33 gauge #100 ea 01/19/25 02/18/25 Unknown rosuvastatin 10 mg tablet 10 mg PO DAILY #90 tabs 01/19/25 03/28/25 03/28/25 famotidine 20 mg tablet 20 mg PO BID 01/22/25 03/28/25 03/28/25 ondansetron 4 mg disintegrating 4 mg PO Q6H PRN nausea and 01/22/25 03/28/25 Unknown tablet vomiting #12 tabs tamsulosin 0.4 mg capsule 0.4 mg PO QAM 01/22/25 03/28/25 03/28/25 tirzepatide 10 mg/0.5 mL 10 mg subcut WK 03/28/25 03/28/25 03/27/25 subcutaneous pen injector Active Medications Generic Name Dose Route Start Last Admin Trade Name Freq PRN Reason Stop Dose Admin Aspirin 81 mg 03/29/25 09:00 03/30/25 08:31 Aspirin 81 Mg Ectab PO 04/28/25 08:59 81 mg DAILY PARMINDER Administration Famotidine 20 mg 03/29/25 09:00 03/30/25 08:31 Famotidine 20 Mg Tab PO 04/28/25 08:59 20 mg BID PARMINDER Administration Hydromorphone HCl 0.5 mg 03/29/25 10:45 03/30/25 07:48 Hydromorphone Inj 0.5 Mg/0.5 Ml Syr IV 04/12/25 02:41 0.5 mg Q2HWA PRN Administration Mod-Sev Pain (Scale 4-10) Sodium Chloride 1,000 mls @ 125 mls/hr 03/29/25 02:42 03/30/25 13:16 Nss IV 04/01/25 02:41 125 mls/hr .Q8H PARMINDER Administration Insulin Aspart 0 units 03/29/25 06:00 03/30/25 13:05 Insulin Aspart Per Unit Charge SC 04/28/25 05:59 Not Given Q6 PARMINDER Ketorolac Tromethamine 15 mg 03/29/25 21:00 03/30/25 08:31 Ketorolac Tromethamine 15 Mg/Ml Vial IV 04/03/25 20:59 15 mg Q12 PARMINDER Administration Ondansetron HCl 4 mg 03/29/25 02:42 03/29/25 22:26 Ondansetron Inj 2 Mg/Ml 2 Ml Vial IV 04/28/25 02:41 4 mg Q6H PRN Administration Nausea Rosuvastatin Calcium 10 mg 03/29/25 09:00 03/30/25 08:31 Rosuvastatin Calcium 10 Mg Tab PO 04/28/25 08:59 10 mg DAILY PARMINDER Administration Tamsulosin HCl 0.4 mg 03/29/25 09:00 03/30/25 08:31 Tamsulosin Hcl 0.4 Mg Cap PO 10/14/25 08:59 0.4 mg QAM PARMINDER Administration Exercise / Class Metabolic Activity Metabolic Activity: II 4-5 Yardwork/Stairs/Walk up hill Physical Exam Constitutional: no acute distress Mouth: no dentition abnormality Thyromental Distance: > or= 3.5 Finger Breadths Mallampati Class: III Neck: + visual inspection normal Respiratory: + respiratory effort normal and + clear to auscultation bilaterally; no respiratory distress Cardiovascular: + regular rate and + regular rhythm; no murmur Musculoskeletal: no limited cervical ROM Psychiatric: + alert and + oriented x 3 ASA ASA2 Proposed Anesthesia Proposed Anesthesia: General (Rapid sequence induction with ET tube) Risk / Benefits Reviewed With: PT / POA / Parent / Guardian, Accepts Plan and Informed Consent Obtained
--- NOTE | 2025-03-30 14:24 | Discharge Summary ---
Discharge Summary Date of Service March 30, 2025 Principal Dx & Hospital Course #1 = Principal Diagnosis (1) Renal colic on right side: 44-year-old male with past med history significant for diabetes, dyslipidemia, sleep apnea, hypertension, history of gastritis, history of kidney stones, history of panic disorder and obsessive-compulsive disorder, obesity, ADHD, presents with severe right flank pain and found to have kidney stone. Pain started in the evening. Associated with nausea and vomiting. Was sweating. Currently with the pain medications pain is improved. Denies any burning micturition or hematuria. Normal bowel movements. Denies chest pain or shortness of breath. No cough. No headache. No runny nose or sore throat. Hemodynamics are okay. Right renal colic Came with severe right flank pain CT scan showing mild right hydronephrosis secondary to 6 mm mid ureteral calculus Received IV Tylenol, IV Toradol, IV morphine and IV fentanyl for pain control Will keep him n.p.o. IV fluids IV Dilaudid as needed and IV Tylenol as needed Urology consult in a.m. Diabetes Sliding scale Will monitor Obstructive sleep apnea Not able to tolerate CPAP Plan for inspire device implantation GERD Famotidine BPH Flomax Hyperlipidemia On statin DVT prophylaxis SCDs Disposition Medical floor Full code. Notes For Next Care Provider 44-year-old male with past med history significant for diabetes, dyslipidemia, sleep apnea, hypertension, history of gastritis, history of kidney stones, history of panic disorder and obsessive-compulsive disorder, obesity, ADHD, presents with severe right flank pain and found to have kidney stone. Had recent lithotripsy. On medicine, urology consulted, recommended lithotripsy and stent placement. Lithotripsy performed on 03/30/2025. On 03/30/2025 patient medically stable for discharge home. To do: [ ] f/u with urology Medication Changes From Visit -oxycodone, zofran Admission HPI Per Admitting Provider 44-year-old male with past med history significant for diabetes, dyslipidemia, sleep apnea, hypertension, history of gastritis, history of kidney stones, history of panic disorder and obsessive-compulsive disorder, obesity, ADHD, presents with severe right flank pain and found to have kidney stone. Pain st arted in the evening. Associated with nausea and vomiting. Was sweating. Currently with the pain medications pain is improved. Denies any burning micturition or hematuria. Normal bowel movements. Denies chest pain or shortness of breath. No cough. No headache. No runny nose or sore throat. Hemodynamics are okay. Past medical history. As mentioned above. Past surgical history.. Lithotripsy. Hand tendon reconstruction. Social history. 1 pack every 3 days. No alcohol use. No drug use. Family history. No history in file. Discharge Exam Gen: A&O 3 NAD HEENT: NCAT, EOMI, not icteric. External ears normal. No rhinorrhea. Moist mucous membranes. Neck: Supple, full range of motion, no observable masses, No meningeal sign. Lungs: No Respiratory distress. CV: RRR, no edema. Abdomen: Soft, nondistended, No rebound tenderness. MSK: No joint swelling, no redness. Skin: No rashes, petechiae, lesions. Normal color per patient. Neuro: Normal Gait, Grossly intact. Psych: Appropriate for situation. Updated Medication List Medication Instructions Recorded Confirmed Type aspirin 81 mg tablet,delayed 81 mg PO DAILY 12/21/23 03/28/25 History release (Adult Low Dose Aspirin) omega 8-zud-fot-fish oil 1,000 mg 1 cap PO BID 12/21/23 03/28/25 History (120 mg-180 mg) capsule (Fish Oil) blood sugar diagnostic (OneTouch #100 ea 01/19/25 02/18/25 Rx Verio test strips) lancets 33 gauge #100 ea 01/19/25 02/18/25 Rx rosuvastatin 10 mg tablet 10 mg PO DAILY #90 tabs 01/19/25 03/28/25 Rx famotidine 20 mg tablet 20 mg PO BID 01/22/25 03/28/25 History ondansetron 4 mg disintegrating 4 mg PO Q6H PRN nausea and 01/22/25 03/28/25 Rx tablet vomiting #12 tabs tamsulosin 0.4 mg capsule 0.4 mg PO QAM 01/22/25 03/28/25 History tirzepatide 10 mg/0.5 mL 10 mg subcut WK 03/28/25 03/28/25 History subcutaneous pen injector ondansetron 4 mg disintegrating 4 mg PO Q8H PRN nausea and 03/30/25 Rx tablet vomiting 5 days #14 tabs oxycodone 5 mg tablet 5 mg PO Q12H PRN pain 3 days #6 03/30/25 Rx tabs Hospital Stay Data Consultations 03/29/25 00:54 ED Decision to Admit Stat 03/29/25 08:00 Consult Urology Routine Procedures Performed Operation Date: 03/30/25 07:00 <No data on this case meets the specified criteria> Diagnostic Imagining Performed 03/28/25 21:12 CT abd pelvis IV con only Stat 03/30/25 FL KUB Routine Pending Results Patient Have Any Pending Studies at Discharge: No Discharge Instructions Given to Patient (Per Discharging Provider) Diagnoses: right ureteral stone s/p lithotripsy and stent placement, mild hydronephrosis Follow Ups: PCP, urology Incidental Findings: diverticulosis, enlarged prostate 1. Please follow up with PCP, urology. 2. Stay hydrated! Total Time Total Time Spent Total Time Spent (In Minutes): I spent a total of 35 minutes in direct patient care, including [id number] time with the patient and/or family, reviewing medical records, ordering and reviewing diagnostic tests, and coordinating care with other healthcare providers. This time includes: history taking, physical examination, medical decision making, counseling, ECG interpretation, imaging interpretation, lab interpretation, orders, and education, excluding time spent in the performance of separately billed services.
[2025-03-30] MEDS ORDERED: ATROPINE SULFATE 0.1 MG/ML 10ML SYR IV PRN (14:48)
[2025-03-30] MEDS ORDERED: PROMETHAZINE HCL 6.25 MG in SODIUM CHLORIDE 0.9% 50 ML IV PRN (14:48)
[2025-03-30] MEDS ORDERED: MIDAZOLAM HCL 1 MG/ML 2ML VIAL ONE (15:02)
[2025-03-30] MEDS ORDERED: PROPOFOL IV EMULSION 10 MG/ML 20 ML VIAL IV ONE (15:03)
[2025-03-30] MEDS ORDERED: SUCCINYLCHOLINE CHLORIDE 20 MG/ML 10 ML VIAL IV ONE (15:05)
[2025-03-30] MEDS ORDERED: CISATRACURIUM BESYLATE IV SOLN 2 MG/ML 10 ML VIAL IV ONE (15:08)
[2025-03-30] MEDS: DEXTROSE 50% 50 ML SYRINGE IV STA (15:37)
[2025-03-30] MEDS: CIPROFLOXACIN / D5W 400 MG/200 ML BAG IV SCH (16:25)
[2025-03-30] MEDS ORDERED: GLYCOPYRROLATE 0.2 MG/ML VIAL ONE (16:38)
[2025-03-30] MEDS ORDERED: NEOSTIGMINE METHYLSULFATE 1 MG/ML 10ML VIAL ONE (16:38)
--- NOTE | 2025-03-30 16:57 | Operative Report ---
PG Post Operative Report Pre & Post Diagnosis Operation Date: 03/30/25 07:00 Pre-Op Diagnosis: Right Renal Colic Post-Op Diagnosis: Right Renal Colic I identified the patient and participated in the time-out.: Yes Procedure Operation Date: 03/30/25 07:00 Actual Procedures p Cystoscopy, Ureteroscopy, Laser Destruction of the Stone, Insertion of Stent - Right(Right) - Jamir Leal MD Surgeon Jamir Leal MD Heel Sprayer First none Estimated Blood Loss 0 Findings Consistent with Post-Op Diagnosis Specimens none Description of Procedure The patient was identified in the preoperative holding area, appropriate informed consents were reviewed and completed and the patient was transferred to the operative suite. Upon arrival, appropriate antibiotics and anesthesia were administered and the patient was placed in dorsal lithotomy position and prepped and draped in sterile fashion. To begin the case I passed a 21 Cam[place]onian cystoscope with 30 degree lens. Inspection revealed a healthy appearing urethra, small prostate and healthy bladder. Ureteral orifices were in orthotopic position. I turned my attention to the right ureteral orifice and cannulated with a sensor wire and a 10 Cam[place]onian double-lumen catheter. The wire advanced the kidney without difficulty. A second wire was then introduced into the kidney. I attempted to place a right ureteral access sheath but it was a bit tight in the distal ureter so I aborted this effort and simply passed a flexible ureteroscope. Of note, after the second wire bypassed the stone there was a discharge of bloody urine. As I advanced the scope I was able to navigate beyond the stone into the kidney and there was old blood within the kidney. I irrigated this out of the kidney first which improved visualization. I found 2 stones within the kidney, 1 in the extreme lower pole and the other in the upper portion of the lower pole. Both were treated entirely with a 200 m laser fiber. There were no other stones visualized within the kidney. As I extracted the scope I encountered a stone that was impacted into the wall of the ureter and the proximal ureterhas seen in the preoperative imaging. Using the same 200 m laser fiber I was able to fragment the stone and free it from inside of impaction, pulverized into pieces that were all safe for spontaneous passage. Majority of the stone debris was irrigated out of the ureter during the case. I concluded the case by completing exit ureteroscopy and confirming no other large retained fragments. A 6 Cam[place]onian by 26 cm double-J stent was placed with a string left attached. Will plan to leave the stent in place for 48 hours before removal. He is safe for discharge home and discharge paperwork has been completed. He was extubated and taken to the recovery room in stable condition. There were no complications. I attest to the content of the Intraoperative Record and any orders documented therein. Any exceptions are noted below.
[2025-03-30] MEDS: ONDANSETRON INJ 2 MG/ML 2 ML VIAL IV STA (17:10)
--- NOTE | 2025-03-30 18:21 | Anesthesiology Progress Note ---
Date of Service March 30, 2025 Anesthesia Post Procedure Vital Signs Vital Signs: Temp Pulse Pulse Resp BP Pulse Ox O2 Del Method 03/30/25 17:55 36.5 C 83 12 132/88 96 Nasal Cannula 03/30/25 17:45 92 H 15 152/90 H 95 Nasal Cannula 03/30/25 17:35 77 12 137/94 90 Room Air 03/30/25 17:25 77 15 124/93 97 Oxymask 03/30/25 17:15 72 15 141/90 H 98 Oxymask 03/30/25 17:08 36.1 C L 80 17 143/97 H 95 Oxymask 03/30/25 13:53 36.8 C 84 139/89 96 Room Air 03/30/25 07:39 36.9 C 82 16 150/87 H 96 Room Air 03/29/25 23:03 36.8 C 100 H 18 129/86 94 Room Air O2 Flow Rate 03/30/25 17:55 4 03/30/25 17:45 4 03/30/25 17:35 03/30/25 17:25 15 03/30/25 17:15 15 03/30/25 17:08 15 03/30/25 13:53 03/30/25 07:39 03/29/25 23:03 Pain Intensity Right Flank: Pain Intensity: 10 Penis: Pain Intensity: 7 Transfer of Care Handoff Completed per policy Notes Mental Status: alert / awake / arousable Patient Amnestic to Procedure: Yes Nausea / Vomiting: adequately controlled Pain: adequately controlled Airway Patency, RR, SpO2: stable & adequate BP & HR: stable & adequate Hydration State: stable & adequate Anesthetic Complications: see Notes below Notes: pt with spontaneously resolved cp. ekg neg. trop pemding
[2025-03-30] MEDS: HYDROmorphone INJ 0.5 MG/0.5 ML SYR IV STA (20:11)
--- NOTE | 2025-03-30 21:00 | Communication Note ---
Date of Service: March 30, 2025 I was called by nursing staff the patient was complaining of uncontrolled pain. Chart was reviewed and patient had a cystoscopy with laser destruction of kidney stones and insertion of a right ureteral stent. Upon visiting the patient he does he is having pain in his right flank which radiates down into his testicles and also to the front of his abdomen. He does note that he has been tolerating oral intake since his surgery. He also notes that he is passing gross hematuria since his procedure On physical exam patient is running low-grade temperatures with a of 37.9. He is normotensive with slight tachycardia. His pulse ox is 92% on room air. On physical exam his abdomen has minimal distention and is nonrigid. He does have some generalized tenderness to palpation greatest in the right side of his abdomen and some CVA tenderness on the right side. After my visit with the patient I provided him with reassurance and told him that it is not uncommon to have the pain he is describing after ureteral stent placement. I also told him regarding the procedure he had and is not uncommon to have gross hematuria and that should slowly resolve. Patient does have various as needed pain medications ordered including Dilaudid, Tylenol, and Toradol which I instructed the nursing staff to continue to use. We also continue to hydrate the patient with IV fluids. I will also add as needed high radium to see if this helps alleviate any of his discomfort. In addition, we will check KUB to verify that the patient's ureteral stent is in position. Addendum (9:20 PM) Patient's KUB reviewed. The ureteral stent on the right-hand side looks like it is in proper position. I do not appreciate any other gross abnormalities on the study. Will continue with the plan as outlined above.
[2025-03-30] MEDS: PHENAZOPYRIDINE HCL 100 MG TAB PO PRN (22:35)
--- NOTE | 2025-03-31 02:09 | XRay Report ---
Exam(s): XR KUB EXAM: XR Abdomen, 1 View CLINICAL HISTORY: Reason for exam: abdominal pain. TECHNIQUE: Frontal supine view of the abdomen/pelvis. COMPARISON: July 09, 2018. IMPRESSION: A right ureteral stent is seen in place. Phleboliths in the left pelvis are stable. No other calcifications are noted. Increased air and stool within the right and transverse colon. One single mildly dilated and gas-filled loop of small bowel in the left abdomen. This is of unclear significance. Electronically signed by: Prabhu De Leon MD 03/31/25 02:08 AM
[2025-03-31] MEDS ORDERED: Nursing to Pharmacy Communication SCH (07:45)
[2025-03-31 07:51] LABS: Hematocrit (blood only) 37.3 % (42.0-52.0); Hemoglobin 12.5 g/dl (14.0-18.0); Mean Corpuscular Hemoglobin 30.2 pg (25.0-34.0); Mean Corpuscular Volume 90.1 fL (80.0-100.0); Platelet Count 287 K/uL (130-400); RDW Standard Deviation 40.6 fL (36.4-46.3); Red Blood Count 4.14 M/uL (4.70-6.10); White Blood Count 10.74 K/ul (4.8-10.8)
--- NOTE | 2025-03-31 08:04 | Urology Progress Note ---
Date of Service March 31, 2025 Assessment & Plan (1) Renal colic on right side: (2) Right ureteral stone: Plan POD #1 s/p Cystoscopy, Right Ureteroscopy, Laser Destruction of the Stone, Insertion of Stent. Reports stent discomfort and dysuria with voiding, improved some from yesterday. Afebrile and hemodynamically stable. Labs today show no leukocytosis and normal renal function. OK for d/c from standpoint. He is scheduled for stent removal tomorrow in the urology clinic. Recommend flomax, pyridium, oxybutynin for stent management and pain medication PRN. Urology will sign-off, can recall as needed. Admission and Anticipated Discharge Date Admission Date: March 29, 2025 Subjective Pt seen at bedside today. Awake and resting in bed on arrival. NAD. Was having a lot of stent discomfort last night. Reports pain has improved some this morning. Has dysuria and hematuria with voiding. Denies fever or chills this morning. Review of Systems Constitutional: as per Subjective / HPI Genitourinary: + as per Subjective / HPI Physical Exam Constitutional: no acute distress Respiratory: no respiratory distress and no labored breathing Neurologic: moves all extremities and awake Psychiatric: A+Ox3, euthymic affect Results & Data Vital Signs (Past 12 Hours) Vital Signs Temp Pulse Resp BP Pulse Ox O2 Del Method 03/31/25 07:38 36.7 C 78 16 134/88 94 Room Air 03/31/25 04:53 37.3 C 85 18 125/79 98 Room Air 03/31/25 00:32 36.7 C 94 H 18 126/74 91 Room Air 03/30/25 20:22 37.9 C H 99 H 22 142/102 H 92 Room Air PG Care Time/CCT Total # of Minutes Spent Total Time Spent with Patient: Total time spent is greater than 50% in coordination of care (as documented) at patient's floor/unit and/or counseling patient: Coding Level of Care Code 72182 SUB INP/OBS CARE 2/35MIN Diagnoses Renal colic on right side N23 Right ureteral stone N20.1
[2025-03-31 08:10] LABS: Anion Gap 7.0 (3-11); Blood Urea Nitrogen 12.0 mg/dl (6-23); Calcium 8.6 mg/dl (8.6-10.3); Carbon Dioxide 26.0 mmol/L (21-32); Chloride 105.0 mmol/L (98-107); Creatinine Clr Calc Pharmacy 99.1 ml/min; Glucose 84.0 mg/dl (70-99(Fasting)); Potassium 3.7 mmol/L (3.5-5.1); Sodium 138.0 mmol/L (136-145)
--- NOTE | 2025-03-31 08:39 | Fluoroscopy Report ---
FL KUB CLINICAL HISTORY: RT CYSTO COMPARISON STUDY: None FLUOROSCOPY TIME: 15 seconds FLUOROSCOPY IMAGES: 3 EXPOSURE DOSE: 4.5 mGy FINDINGS: Fluoroscopy was provided for urologic procedure. IMPRESSION: Intraoperative fluoroscopy. ACT 112: Negative or not required by law. Electronically signed by: Mariusz Lin M.D. 03/31/2025 8:38 AM
[2025-03-31 11:01] VITALS: BP 152/87; PULSE 72; RESP 15; TEMP 97.3; O2SAT 96
--- NOTE | 2025-03-31 11:21 | Discharge Summary ---
Discharge Summary Date of Service March 31, 2025 Principal Dx & Hospital Course #1 = Principal Diagnosis (1) Renal colic on right side: 44-year-old male with past med history significant for diabetes, dyslipidemia, sleep apnea, hypertension, history of gastritis, history of kidney stones, history of panic disorder and obsessive-compulsive disorder, obesity, ADHD, presents with severe right flank pain and found to have kidney stone. Pain started in the evening. Associated with nausea and vomiting. Was sweating. Currently with the pain medications pain is improved. Denies any burning micturition or hematuria. Normal bowel movements. Denies chest pain or shortness of breath. No cough. No headache. No runny nose or sore throat. Hemodynamics are okay. Right renal colic Came with severe right flank pain CT scan showing mild right hydronephrosis secondary to 6 mm mid ureteral calculus Received IV Tylenol, IV Toradol, IV morphine and IV fentanyl for pain control Will keep him n.p.o. IV fluids IV Dilaudid as needed and IV Tylenol as needed Urology consult in a.m. Diabetes Sliding scale Will monitor Obstructive sleep apnea Not able to tolerate CPAP Plan for inspire device implantation GERD Famotidine BPH Flomax Hyperlipidemia On statin DVT prophylaxis SCDs Disposition Medical floor Full code. Notes For Next Care Provider 44-year-old male with past med history significant for diabetes, dyslipidemia, sleep apnea, hypertension, history of gastritis, history of kidney stones, history of panic disorder and obsessive-compulsive disorder, obesity, ADHD, presents with severe right flank pain and found to have kidney stone. Had recent lithotripsy. On medicine, urology consulted, recommended lithotripsy and stent placement. Lithotripsy performed on 03/30/2025. On 03/30/2025 patient medically stable for discharge home. Did not want to leave overnight, was medically ready for discharge on 03/30/2025 (as requested by patient, who requested discharge post procedure, discharge order placed by urology on 03/30/2025), patient now leaving on 03/31/2025. To do: [ ] f/u with urology Medication Changes From Visit -see below Admission HPI Per Admitting Provider 44-year-old male with past med history significant for diabetes, dyslipidemia, sleep apnea, hypertension, history of gastritis, history of kidney stones, history of panic disorder and obsessive-compulsive disorder, obesity, ADHD, presents with severe right flank pain and found to have kidney stone. Pain started in the evening. Associated with nausea and vomiting. Was sweating. Currently with the pain medications pain is improved. Denies any burning micturition or hematuria. Normal bowel movements. Denies chest pain or shortness of breath. No cough. No headache. No runny nose or sore throat. Hemodynamics are okay. Past medical history. As mentioned above. Past surgical history.. Lithotripsy. Hand tendon reconstruction. Social history. 1 pack every 3 days. No alcohol use. No drug use. Family history. No history in file. Discharge Exam Gen: A&O 3 NAD HEENT: NCAT, EOMI, not icteric. External ears normal. No rhinorrhea. Moist mucous membranes. Neck: Supple, full range of motion, no observable masses, No meningeal sign. Lungs: No Respiratory distress. CV: RRR, no edema. Abdomen: Soft, nondistended, No rebound tenderness. MSK: No joint swelling, no redness. Skin: No rashes, petechiae, lesions. Normal color per patient. Neuro: Normal Gait, Grossly intact. Psych: Appropriate for situation. Updated Medication List Medication Instructions Recorded Confirmed Type aspirin 81 mg tablet,delayed 81 mg PO DAILY 12/21/23 03/28/25 History release (Adult Low Dose Aspirin) omega 4-vtl-olf-fish oil 1,000 mg 1 cap PO BID 12/21/23 03/28/25 History (120 mg-180 mg) capsule (Fish Oil) blood sugar diagnostic (OneTouch #100 ea 01/19/25 02/18/25 Rx Verio test strips) lancets 33 gauge #100 ea 01/19/25 02/18/25 Rx rosuvastatin 10 mg tablet 10 mg PO DAILY #90 tabs 01/19/25 03/28/25 Rx famotidine 20 mg tablet 20 mg PO BID 01/22/25 03/28/25 History ondansetron 4 mg disintegrating 4 mg PO Q6H PRN nausea and 01/22/25 03/28/25 Rx tablet vomiting #12 tabs tamsulosin 0.4 mg capsule 0.4 mg PO QAM 01/22/25 03/28/25 History tirzepatide 10 mg/0.5 mL 10 mg subcut WK 03/28/25 03/28/25 History subcutaneous pen injector ciprofloxacin HCl 500 mg tablet 500 mg PO BID #6 tabs 03/30/25 Rx (Cipro) ondansetron 4 mg disintegrating 4 mg PO Q8H PRN nausea and 03/30/25 Rx tablet vomiting 5 days #14 tabs oxycodone 5 mg tablet 5 mg PO Q12H PRN pain 3 days #6 03/30/25 Rx tabs ketorolac 10 mg tablet 10 mg PO Q8H PRN pain 5 days #20 03/31/25 Rx tabs Hospital Stay Data Consultations 03/29/25 00:54 ED Decision to Admit Stat 03/29/25 08:00 Consult Urology Routine Procedures Performed Operation Date: 03/30/25 07:00 Actual Procedures p Cystoscopy, Ureteroscopy, Laser Destruction of the Stone,(Right) - Jamir Leal MD s Insertion of Stent - Right(Right) - Jamir Leal MD Diagnostic Imagining Performed 03/28/25 21:12 CT abd pelvis IV con only Stat 03/30/25 FL KUB Routine Pending Results Patient Have Any Pending Studies at Discharge: No Discharge Instructions Given to Patient (Per Discharging Provider) Diagnoses: right ureteral stone s/p lithotripsy and stent placement, mild hyd ronephrosis Follow Ups: PCP, urology Incidental Findings: diverticulosis, enlarged prostate 1. Please follow up with PCP, urology. 2. Stay hydrated! You are scheduled for stent removal in the urology clinic on 04/01/25 at 8:30AM. Please continue your previous diet, take all medications as prescribed and keep all follow-ups as scheduled. Please call our office at [phone] with any questions, concerns or need to reschedule appointments for any reason. We are happy to assist you. While you have a ureteral stent in place: Some discomfort is normal. Certain movements may trigger pain or a feeling that you need to urinate. You may also feel mild soreness or pressure before or during urination. These symptoms should go away a few days after the stent is removed. Your urine may be slightly pink or red. This is due to bleeding caused by minor irritation from the stent. This may happen on and off while you have the stent, it is not harmful and is to be expected. Medication to help minimize discomfort or bladder spasms, or to prevent infection may be prescribed. Take this as directed. Drink plenty of fluids to help flush out your urinary tract. If you go home with a catheter, wash with soapy water and a fresh washcloth twice daily. We recommend mild bar soap such as Dial or Dove. How long will you need a stent? An appointment should already be made for you for stent removal, unless directed otherwise. The stent is often taken out after the blockage in the ureter is treated or the ureter has healed. This may take 1-2 weeks, or longer. If a stent is needed for a longer period of time, it may need to be exchanged every few months. Likely prior to your followup appointment you will be asked to get an X-ray, please complete this the night before or morning of your appointment. When to call [facility] at [phone]: Your urine contains heavy blood clots You are constantly leaking urine Fever of 101F or higher, chills, nausea, or vomiting Your pain is not relieved with medication The end of the stent comes out of your urethra Total Time Total Time Spent Total Time Spent (In Minutes): I spent a total of 35 minutes in direct patient care, including [id number] time with the patient and/or family, reviewing medical records, ordering and reviewing diagnostic tests, and coordinating care with other healthcare providers. This time includes: history taking, physical examination, medical decision making, counseling, ECG interpretation, imaging interpretation, lab interpretation, orders, and education, excluding time spent in the performance of separately billed services.
[2025-03-31] MEDS: INSULIN ASPART PER UNIT CHARGE SC SCH (12:42)
--- NOTE | 2025-04-02 15:26 | Electrocardiogram Report ---
Test Reason : Blood Pressure : */* mmHG Vent. Rate : 73 BPM Atrial Rate : 73 BPM P-R Int : 156 ms QRS Dur : 94 ms QT Int : 392 ms P-R-T Axes : 38 14 34 degrees QTcB Int : 431 ms Normal sinus rhythm Normal ECG When compared with ECG of 25-Sep-2023 11:55, No significant change was found Confirmed by Leonardo Christianson ([id number]) on 04/02/2025 3:25:35 PM Referred By: REFERRED SELF Confirmed By: Leonardo Christianson
== END 2025-03-31 12:49 | disposition home or self-care (01) | DRG 661 ==
LOC: ED 21:03 → 3W 03-29 01:37